=== PATIENT | female | born 1955 | race Caucasian/White ===

== ENCOUNTER 2016-04-17 13:59 | Emergency (ER) | payer OTHER ==
[~2016-04-17 13:59] MED LIST: /DULO30CA OR; /ESOM40CA; /ESOM40CA OR; /QUET10TA OR; /QUET25TA OR; /WARF25TA PO; ABIL10TA; ABIL20TA2; ABIL30TA4 OR; ACET500T37 PO; ACIPHEX OR; ASPI81TA11 PO; ASPIRIN PO; ATARAX OR; ATOM40CA; BUSP10TA2 OR; BUSP30TA; CELE100C OR; CELE40TA OR; CLAR5CHW; CLAR5CHW OR; CLON0.5T OR; CLON0.5T PO; COGE1INJ; COGE1INJ OR; COLA100C2 OR; COUM2.5T11 PO; CVS20TAB PO; CYMB60CA3 PO; CYMBALTA PO; DITR1TAB PO; DULO1CAP2 PO; EFFE150C; EFFE150C OR; EFFE75CA75 OR; FERR325T; GABAPOW41 PO; HALO10TA4; LAMI1TAB8 PO; LAMI25TA; LAMI25TA OR; LAMO10TA PO; NAPR250T2 PO; NEXI40CA PO; NORC5TAB PO; OMEP20TA7 OR; PERC5TAB6 PO; PERC7.5T12 PO; PRIL20CA; QUET1TAB10 PO; QUET1TAB9 PO; QUET30TA OR; RANI150T PO; SENN8.6T10 PO; SERO200T OR; SEROQUEL PO; SIMV20TA2 PO; TIZA2CAP3 PO; TRAM50TA2 OR; TRAM50TA2 PO; TRAZ100T OR; TRAZ100T4 PO; TRAZ150T14 PO; TRAZ300T2 PO; TRAZ50TA; TRAZADONE PO; TUMS750C20 PO; TYLE325C PO; TYLE325T5 PO; VENL75TA2 OR; VENLAFAXINE PO; VITA200038 PO; VITAMIN B 12 PO; ZOCO20TA OR; ZYPR10TA OR; flonase
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
--- NOTE | 2016-04-17 14:58 | EDDOCDS ---
Physician Documentation [facility] Name: Bridget Lemon Age: 60 yrs Sex: Female : 1955 Arrival Date: 04/17/2016 Time: 13:59 Bed TR8 Private MD: Isaias Mosquera Disposition: 04/17/16 14:47 Discharged to Home/Self Care. Impression: Low back pain, Weakness, Malaise and fatigue, Myalgia. - Condition is Stable. - Discharge Instructions: Musculoskeletal Pain, Weakness, Fatigue, Back Pain, Adult, [id number]. - Prescriptions for Medrol (Asa) 4 mg Oral Tablets, Dose Pack - take 1 Pack by ORAL route as directed - follow package instructions; 1 packet. - Medication Reconciliation, Local Pharmacy Hours form. - Follow up: Isaias Mosquera; When: Call to arrange an appointment; Reason: Further diagnostic work-up, Recheck today's complaints, Continuance of care. - Problem is an ongoing problem. - Symptoms are unchanged. Historical: - Allergies: Codeine Sulfate; PENICILLINS; - Home Meds: 1. aspirin 81 mg Oral TbEC once daily (Last dose: 04/17/2016 08:00) 2. clonazepam 0.5 mg Oral tab 1 tab 2 times per day (Last dose: 04/17/2016 08:00) 3. Cymbalta 90mg Oral cpDR once daily (Last dose: 04/16/2016 20:00) 4. Lamictal 150 mg Oral tab once daily (Last dose: 04/17/2016 08:00) 5. meclizine 25 mg Oral tab 1 tab once daily (Last dose: 04/16/2016) 6. Nexium 40 mg oral cpDR 2 times per day (Last dose: 04/17/2016 08:00) 7. Seroquel Oral Nightly (Last dose: 04/16/2016 20:00) 8. trazodone 100 mg oral tab nightly (Last dose: 04/16/2016 20:00) 9. Simvastatin Unknown Oral Unknown once daily (Last dose: 04/17/2016 08:00) - PMHx: Anxiety; Depression; GERD; insomnia; - PSHx: Bilateral knee replacement; Tonsillectomy; Adenoidectomy; Cataract Surgery- Bilateral; Left rotator cuff repair 2016; - Social history: Smoking status: Patient states was never smoker of tobacco. No barriers to communication noted, The patient speaks fluent Kazakh. - Family history: Not pertinent. - : The pt / caregiver states he / she is not on anticoagulants. Home medication list is obtained from the patient. - Exposure Risk Screening:: None identified. Vital Signs: 04/17 14:02 BP 117 / 66; Pulse 95; Resp 18 S; Temp 96.4(O); Pulse Ox 97% on R/A; Weight 63.05 kg / gr2 139 lbs (R); Height 4 ft. 10 in. (147.32 cm) (R); Pain 5/10; 14:02 Body Mass Index 29.05 (63.05 kg, 147.32 cm) gr2 MDM: 14:57 Financial registration complete. lg Signatures: Siddharth Diallo, RN RN Woo Cao Reg Reg lg Wolfenden, Brandon, PA PA btw Hafner, JaneRN RN [facility] ELIZABETH
--- NOTE | 2016-04-19 15:59 | EDDOCDS ---
Physician Documentation [facility] Name: Bridget Lemon Age: 60 yrs Sex: Female : 1955 Arrival Date: 04/17/2016 Time: 13:59 Bed TR8 Private MD: Isaias Mosquera Disposition: 04/17/16 14:47 Discharged to Home/Self Care. Impression: Low back pain, Weakness, Malaise and fatigue, Myalgia. - Condition is Stable. - Discharge Instructions: Musculoskeletal Pain, Weakness, Fatigue, Back Pain, Adult, [id number]. - Prescriptions for Medrol (Asa) 4 mg Oral Tablets, Dose Pack - take 1 Pack by ORAL route as directed - follow package instructions; 1 packet. - Medication Reconciliation, Local Pharmacy Hours form. - Follow up: Isaias Mosquera; When: Call to arrange an appointment; Reason: Further diagnostic work-up, Recheck today's complaints, Continuance of care. - Problem is an ongoing problem. - Symptoms are unchanged. Historical: - Allergies: Codeine Sulfate; PENICILLINS; - Home Meds: 1. aspirin 81 mg Oral TbEC once daily (Last dose: 04/17/2016 08:00) 2. clonazepam 0.5 mg Oral tab 1 tab 2 times per day (Last dose: 04/17/2016 08:00) 3. Cymbalta 90mg Oral cpDR once daily (Last dose: 04/16/2016 20:00) 4. Lamictal 150 mg Oral tab once daily (Last dose: 04/17/2016 08:00) 5. meclizine 25 mg Oral tab 1 tab once daily (Last dose: 04/16/2016) 6. Nexium 40 mg oral cpDR 2 times per day (Last dose: 04/17/2016 08:00) 7. Seroquel Oral Nightly (Last dose: 04/16/2016 20:00) 8. trazodone 100 mg oral tab nightly (Last dose: 04/16/2016 20:00) 9. Simvastatin Unknown Oral Unknown once daily (Last dose: 04/17/2016 08:00) - PMHx: Anxiety; Depression; GERD; insomnia; - PSHx: Bilateral knee replacement; Tonsillectomy; Adenoidectomy; Cataract Surgery- Bilateral; Left rotator cuff repair 2016; - Social history: Smoking status: Patient states was never smoker of tobacco. No barriers to communication noted, The patient speaks fluent Syriac. - Family history: Not pertinent. - : The pt / caregiver states he / she is not on anticoagulants. Home medication list is obtained from the patient. - Exposure Risk Screening:: None identified. Vital Signs: 04/17 14:02 BP 117 / 66; Pulse 95; Resp 18 S; Temp 96.4(O); Pulse Ox 97% on R/A; Weight 63.05 kg / gr2 139 lbs (R); Height 4 ft. 10 in. (147.32 cm) (R); Pain 5/10; 14:02 Body Mass Index 29.05 (63.05 kg, 147.32 cm) gr2 MDM: 14:57 Financial registration complete. : [facility] Payment Agreement was scanned into [employer] and attached to record. lg 04/18 10:50 T-Sheet-- Draft Copy was scanned into [employer] and attached to record. gb Signatures: Siddharth Diallo, RN RN dwSilvia Berman, Reg Reg gb Woo Trinh, Reg Reg lg Abel Ladd PA PA btw Yeimy RichterRN RN [facility] The chart was reviewed and I authenticate all verbal orders and agree with the evaluation and treatment provided.Attachments: 04/17 14: [facility] Payment Agreement 04/18 10:50 T-Sheet-- Draft Copy gb Chart Complete MTDD
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
--- NOTE | 2016-04-19 15:59 | EDDOCDS ---
Physician Documentation [facility] Name: Bridget Lemon Age: 60 yrs Sex: Female : 1955 Arrival Date: 04/17/2016 Time: 13:59 Bed TR8 Private MD: Isaias Mosquera Disposition: 04/17/16 14:47 Discharged to Home/Self Care. Impression: Low back pain, Weakness, Malaise and fatigue, Myalgia. - Condition is Stable. - Discharge Instructions: Musculoskeletal Pain, Weakness, Fatigue, Back Pain, Adult, [id number]. - Prescriptions for Medrol (Asa) 4 mg Oral Tablets, Dose Pack - take 1 Pack by ORAL route as directed - follow package instructions; 1 packet. - Medication Reconciliation, Local Pharmacy Hours form. - Follow up: Isaias Mosquera; When: Call to arrange an appointment; Reason: Further diagnostic work-up, Recheck today's complaints, Continuance of care. - Problem is an ongoing problem. - Symptoms are unchanged. Historical: - Allergies: Codeine Sulfate; PENICILLINS; - Home Meds: 1. aspirin 81 mg Oral TbEC once daily (Last dose: 04/17/2016 08:00) 2. clonazepam 0.5 mg Oral tab 1 tab 2 times per day (Last dose: 04/17/2016 08:00) 3. Cymbalta 90mg Oral cpDR once daily (Last dose: 04/16/2016 20:00) 4. Lamictal 150 mg Oral tab once daily (Last dose: 04/17/2016 08:00) 5. meclizine 25 mg Oral tab 1 tab once daily (Last dose: 04/16/2016) 6. Nexium 40 mg oral cpDR 2 times per day (Last dose: 04/17/2016 08:00) 7. Seroquel Oral Nightly (Last dose: 04/16/2016 20:00) 8. trazodone 100 mg oral tab nightly (Last dose: 04/16/2016 20:00) 9. Simvastatin Unknown Oral Unknown once daily (Last dose: 04/17/2016 08:00) - PMHx: Anxiety; Depression; GERD; insomnia; - PSHx: Bilateral knee replacement; Tonsillectomy; Adenoidectomy; Cataract Surgery- Bilateral; Left rotator cuff repair 2016; - Social history: Smoking status: Patient states was never smoker of tobacco. No barriers to communication noted, The patient speaks fluent Yoruba. - Family history: Not pertinent. - : The pt / caregiver states he / she is not on anticoagulants. Home medication list is obtained from the patient. - Exposure Risk Screening:: None identified. Vital Signs: 04/17 14:02 BP 117 / 66; Pulse 95; Resp 18 S; Temp 96.4(O); Pulse Ox 97% on R/A; Weight 63.05 kg / gr2 139 lbs (R); Height 4 ft. 10 in. (147.32 cm) (R); Pain 5/10; 14:02 Body Mass Index 29.05 (63.05 kg, 147.32 cm) gr2 MDM: 14:57 Financial registration complete. [facility] Payment Agreement was scanned into [employer] and attached to record. lg 04/18 10:50 T-Sheet-- Draft Copy was scanned into [employer] and attached to record. gb Signatures: Siddharth Diallo, RN RN dwSilvia Berman, Reg Reg gb Woo Trinh, Reg Reg lg Abel Ladd PA PA btw Yeimy RichterRN RN [facility] The chart was reviewed and I authenticate all verbal orders and agree with the evaluation and treatment provided.Attachments: 04/17 14: [facility] Payment Agreement 04/18 10:50 T-Sheet-- Draft Copy gb Chart Complete MTDD
== END 2016-04-17 14:58 | disposition home or self-care (01) ==
LOC: M ED 13:59
DX: R53.1 Weakness (principal); R53.83 Other fatigue; M54.5 Low back pain; G89.29 Other chronic pain; F41.9 Anxiety disorder, unspecified; K21.9 Gastro-esophageal reflux disease without esophagitis; G47.00 Insomnia, unspecified; Z79.899 Other long term (current) drug therapy; Z79.82 Long term (current) use of aspirin; Z88.0 Allergy status to penicillin; Z88.5 Allergy status to narcotic agent

== ENCOUNTER → 2016-04-18 | Outpatient (REF) | payer OTHER, MEDICAID ==
[2016-04-18 15:47] LABS: BASO % 0.9 % (0.0-1.0); EOS # 0.1 K/mm3 (0.0-0.50); EOS % 2.9 % (0.0-3.0); LARGE UNSTAINED CELL # 0.1 K/mm3 (0.0-0.4); LARGE UNSTAINED CELL % 3.1 % (0.0-4.0); LYMPH # 1.6 K/mm3 (1.5-4.5); LYMPH % 36.2 % (24.0-44.0); MEAN CORPUSCULAR HEMOGLOBIN 28.3 pg (27.0-33.0); MEAN CORPUSCULAR HGB CONC 30.6 g/dl (32.0-36.5); MEAN CORPUSCULAR VOLUME 92.4 fl (80.0-96.0); MONO # 0.3 K/mm3 (0.0-0.8); MONO % 7.2 % (0.0-5.0); NEUTROPHILS # 2.2 K/mm3 (1.8-7.7); NEUTROPHILS % 49.7 % (36.0-66.0); PLATELET COUNT, AUTOMATED 306 k/mm3 (150-450); RED CELL DISTRIBUTION WIDTH 14.9 % (11.5-14.5); WHITE BLOOD COUNT 4.4 K/mm3 (4.0-10.0)
[2016-04-18 16:01] LABS: ANION GAP 8 MEQ/L (8-16); BLOOD UREA NITROGEN 16 MG/DL (7-18); CALCIUM LEVEL 8.7 MG/DL (8.8-10.2); CARBON DIOXIDE LEVEL 32 MEQ/L (21-32); CHLORIDE LEVEL 102 MEQ/L (98-107); CREATININE FOR GFR 0.82 MG/DL (0.55-1.02); GLOMERULAR FILTRATION RATE > 60.0 (>45); GLUCOSE, FASTING 104 MG/DL (80-110); POTASSIUM SERUM 4.2 MEQ/L (3.5-5.1); SODIUM LEVEL 142 MEQ/L (136-145)
== END ==
LOC: M LABDRAW1 15:17
PROVIDERS: ATTEND Physician Assistant Medical
DX: J32.9 Chronic sinusitis, unspecified (principal)
CPT/HCPCS: 36415; 80048; 85025; G0463

== ENCOUNTER → 2016-04-25 | Outpatient (CLI) | payer MEDICAID, OTHER ==
--- NOTE | 2016-04-25 16:18 | REP ---
MRI BRAIN WITHOUT AND WITH CONTRAST: 04/25/2016. Clinical history: Dizziness, and increased falls. Unsteady gait. Technique: Axial T1, T2, FLAIR, gradient echo, diffusion-weighted images and ADC mapping sequences with sagittal T1. After infusion of 14 mL of ProHance, coronal and axial T1 sequences were then provided. Comparison CT: 01/02/2016. Findings: Ventricles are midline with lateral ventricles dilated, symmetric and without displacement. They are proportionate to the diffuse cerebral atrophy, which is moderate and greater than expected for age. Atrophy is greatest in the temporal and frontal lobes. It is diffuse. Periventricular, deep central and subcortical white matter hyperintense T2 and FLAIR foci are seen mostly punctate, but some more ill-defined and confluent areas are noted as well. The basal ganglia appear symmetric. Other than atrophy, the cortical stripe was symmetric and preserved. There is no vascular territory infarct, intraparenchymal hemorrhage, mass or mass effect. No edema. No extra-axial fluid collections. The brainstem shows some T2 hyperintense foci in the cerebral peduncles on both sides. Third ventricle is mildly dilated as on previous CT. Transverse diameter of 9.2 mm is close to the measurement on the CT in December 8.7 mm at the same location. VII/VIII cranial nerve complexes and mastoids intact. There is slight deviation of nasal septum towards the right. Visualized sinuses show some ethmoid sinus mucosal thickening. Orbits and contents symmetric and normal. The corpus callosum, optic chiasm and pituitary were grossly intact. No cerebellar tonsillar ectopia is noted. Diffusion weighted images and ADC mapping sequences show no evidence of acute ischemia. After contrast administration: There is no visible vascular malformation or lesion, abnormal meningeal enhancement, gyriform enhancement nor enhancing mass on axial and coronal T1 images. Impression: 1. Moderately severe diffuse atrophy, similar to that seen in the previous CT scans of the brain, greater than expected for age, but stable and proportionate degree of ventriculomegaly and atrophy. 2. Scattered chronic small vessel white matter ischemic changes noted. 3. No enhancing mass, vascular lesion, abnormal meningeal enhancement or gyriform enhancement. 4. Minor ethmoid sinus mucosal thickening but the mastoids, skull base and orbits were unremarkable. 5. No acute infarct, hemorrhage, mass or mass effect. Signed by Jaskaran Curry MD 04/25/2016 04:48 P
== END ==
LOC: M RAD 11:56
PROVIDERS: ATTEND Physician Assistant Medical
DX: R42 Dizziness and giddiness (principal); W19.XXXD Unspecified fall, subsequent encounter; Y92.9 Unspecified place or not applicable; Y93.9 Activity, unspecified; Y99.9 Unspecified external cause status
CPT/HCPCS: 70553; A9576

== ENCOUNTER → 2016-05-02 | Outpatient (CLI) | payer OTHER ==
[2016-05-02 07:35] LABS: MEAN CORPUSCULAR HEMOGLOBIN 27.4 pg (27.0-33.0); MEAN CORPUSCULAR HGB CONC 30.3 g/dl (32.0-36.5); MEAN CORPUSCULAR VOLUME 90.5 fl (80.0-96.0); RED CELL DISTRIBUTION WIDTH 14.7 % (11.5-14.5); WHITE BLOOD COUNT 4.9 K/mm3 (4.0-10.0)
[2016-05-02 08:22] LABS: ALBUMIN 3.2 GM/DL (3.2-5.2); ALBUMIN/GLOBULIN RATIO 0.94 (1.00-1.93); ALKALINE PHOSPHATASE 153 U/L (45-117); ALT/SGPT 13 U/L (12-78); ANION GAP 8 MEQ/L (8-16); AST/SGOT 17 U/L (15-37); BILIRUBIN,TOTAL 0.2 MG/DL (0.2-1.0); BLOOD UREA NITROGEN 22 MG/DL (7-18); CALCIUM LEVEL 8.7 MG/DL (8.8-10.2); CARBON DIOXIDE LEVEL 29 MEQ/L (21-32); CHLORIDE LEVEL 107 MEQ/L (98-107); CHOLESTEROL LEVEL 207 MG/DL (<200); CREATININE FOR GFR 0.72 MG/DL (0.55-1.02); GLOMERULAR FILTRATION RATE > 60.0 (>45); GLUCOSE, FASTING 96 MG/DL (80-110); SODIUM LEVEL 144 MEQ/L (136-145); TOTAL PROTEIN 6.6 GM/DL (6.4-8.2); TRIGLYCERIDES LEVEL 103 MG/DL (<150)
== END ==
LOC: M LAB 06:47
PROVIDERS: ATTEND Nurse Practitioner Adult Health
DX: Z00.00 Encounter for general adult medical examination without abnormal findings (principal); E78.00 Pure hypercholesterolemia, unspecified; K21.9 Gastro-esophageal reflux disease without esophagitis; M19.90 Unspecified osteoarthritis, unspecified site

== ENCOUNTER 2016-05-22 13:17 | Emergency (ER) | payer MEDICAID, OTHER ==
[~2016-05-22] VITALS: Ht 147.3 cm; Wt 68.0 kg
[2016-05-22] MEDS ORDERED: TRAM1CAP15 PO (13:32)
[2016-05-22] MEDS ORDERED: RANI1TAB38 PO (13:32)
[2016-05-22] MEDS ORDERED: SUCR1TA PO (13:32)
[2016-05-22] MEDS ORDERED: TIZA4CAP3 PO (13:32)
[2016-05-22] MEDS ORDERED: ONDANSETRON 4 MG ORAL DISINTEGRATING TAB (S0181) PO ONE (15:30)
[2016-05-22] MEDS ORDERED: ACETAMINOPH W/CODEINE #3 TAB UD PO ONE (15:30)
[2016-05-22] MEDS ORDERED: ACET30TAB PO (16:10)
[2016-05-22] MEDS ORDERED: ZOFR4TAB3 PO (16:12)
--- NOTE | 2016-05-22 16:13 | REP ---
CT HEAD WITHOUT CONTRAST: HISTORY: Trauma. COMPARISON: 01/02/2016 Areas of decreased attenuation are present in the periventricular white matter. This represents small vessel ischemic disease. There is no intraparenchymal hemorrhage, mass or midline shift. The ventricular system and cortical sulci are dilated consistent with moderate volume loss. There is no extracerebral collection. There is no fracture. The visualized sinuses are clear. IMPRESSION: 1. Small vessel ischemic disease. 2. Moderate volume loss. Signed by Jimmie Kendall MD 05/22/2016 04:16 P
--- NOTE | 2016-05-22 16:15 | REP ---
CT CERVICAL SPINE WITHOUT CONTRAST: HISTORY: Trauma. There is no acute fracture or subluxation. There is no disc bulge or herniation. The spinal canal and the neural foramina are patent. The intervertebral discs are normal in height. IMPRESSION: There is no acute fracture or subluxation. Signed by Jimmie Kendall MD 05/22/2016 04:16 P
[2016-05-22 16:20] VITALS: BP 119/72
--- NOTE | 2016-05-22 16:24 | REP ---
LEFT SHOULDER, THREE VIEWS: HISTORY: Trauma. COMPARISON: 02/14/2014 There is no acute fracture or dislocation. There is irregularity of the superolateral aspect of the humeral head. There is narrowing of the acromioclavicular joint. IMPRESSION: There is no acute fracture or dislocation. Signed by Jimmie Kendall MD 05/22/2016 04:27 P
== END 2016-05-22 16:32 | disposition home or self-care (01) ==
LOC: M ED 15:41
DX: S09.90XA Unspecified injury of head, initial encounter (principal); S16.1XXA Strain of muscle, fascia and tendon at neck level, initial encounter; S40.012A Contusion of left shoulder, initial encounter; W19.XXXA Unspecified fall, initial encounter; Y92.090 Kitchen in other non-institutional residence as the place of occurrence of the external cause; Y93.E9 Activity, other interior property and clothing maintenance; Y99.8 Other external cause status; M54.9 Dorsalgia, unspecified; K21.9 Gastro-esophageal reflux disease without esophagitis; E78.9 Disorder of lipoprotein metabolism, unspecified; F32.9 Major depressive disorder, single episode, unspecified; G43.909 Migraine, unspecified, not intractable, without status migrainosus; Z86.73 Personal history of transient ischemic attack (TIA), and cerebral infarction without residual deficits; Z88.5 Allergy status to narcotic agent; Z88.8 Allergy status to other drugs, medicaments and biological substances; Z88.0 Allergy status to penicillin; Z79.899 Other long term (current) drug therapy

== ENCOUNTER 2016-05-31 10:50 | Emergency (ER) | payer OTHER ==
[~2016-05-31] VITALS: Ht 147.3 cm; Wt 67.6 kg
[~2016-05-31 10:50] MED LIST changes: +ACET30TAB PO; +RANI1TAB38 PO; +SUCR1TA PO; +TIZA4CAP3 PO; +TRAM1CAP15 PO; +ZOFR4TAB3 PO
[2016-05-31] MEDS ORDERED: MONT10TA2 PO (11:13)
[2016-05-31] MEDS ORDERED: MECL-68 PO (11:14)
[2016-05-31] MEDS ORDERED: ACETAMINOPHEN 325 MG TAB PO ONE (12:30)
[2016-05-31] MEDS ORDERED: NS 500 ML IV ONE (12:30)
[2016-05-31] MEDS ORDERED: ALBUTEROL SULFATE 2.5 MG/0.5 ML INH NEB SOLN NEB ONE (12:30)
[2016-05-31] MEDS ORDERED: ONDANSETRON 4MG/2ML VIAL (J2405) IV ONE (12:45)
[2016-05-31 13:28] LABS: CALCIUM OXALATE CRYSTALS SMALL
[2016-05-31 13:39] LABS: MEAN CORPUSCULAR HEMOGLOBIN 27.8 pg (27.0-33.0); MEAN CORPUSCULAR HGB CONC 31.2 g/dl (32.0-36.5); MEAN CORPUSCULAR VOLUME 88.9 fl (80.0-96.0); RED CELL DISTRIBUTION WIDTH 14.4 % (11.5-14.5); WHITE BLOOD COUNT 11.4 K/mm3 (4.0-10.0)
[2016-05-31 13:55] LABS: ALBUMIN 3.3 GM/DL (3.2-5.2); ALBUMIN/GLOBULIN RATIO 0.79 (1.00-1.93); ALKALINE PHOSPHATASE 157 U/L (45-117); ALT/SGPT 15 U/L (12-78); ANION GAP 10 MEQ/L (8-16); AST/SGOT 19 U/L (15-37); BILIRUBIN,TOTAL 0.2 MG/DL (0.2-1.0); BLOOD UREA NITROGEN 13 MG/DL (7-18); CALCIUM LEVEL 8.3 MG/DL (8.8-10.2); CARBON DIOXIDE LEVEL 28 MEQ/L (21-32); CHLORIDE LEVEL 101 MEQ/L (98-107); CREATININE FOR GFR 0.74 MG/DL (0.55-1.02); GLOMERULAR FILTRATION RATE > 60.0 (>45); GLUCOSE, FASTING 97 MG/DL (80-110); POTASSIUM SERUM 3.8 MEQ/L (3.5-5.1); SODIUM LEVEL 139 MEQ/L (136-145); TOTAL PROTEIN 7.5 GM/DL (6.4-8.2)
--- NOTE | 2016-05-31 13:55 | REP ---
REASON: Chest pain. COMPARISON: Frontal view obtained as part of a rib series 01/05/2016. There is no change from the prior exam. There are chronic changes with basilar fibrosis and chronic calcified lymph nodes. There is cardiomegaly status quo. No definite acute patchy parenchymal opacities or pleural effusions have developed. Chronic changes are seen involving the imaged spine status quo. There is unchanged thoracic aortic tortuosity. IMPRESSION: Stable appearing chronic changes without plain radiographic evidence of acute cardiopulmonary disease. Signed by Adolfo Paula DO 05/31/2016 04:47 P
[2016-05-31 15:47] VITALS: BP 118/63
[2016-05-31] MEDS ORDERED: AZIT250T3 PO (15:48)
[2016-05-31] MEDS ORDERED: ALBU17IN INH (15:50)
[2016-05-31] MEDS ORDERED: AZITHROMYCIN 250 MG TAB PO ONE (16:00)
--- NOTE | 2016-05-31 18:02 | ECGEPIP ---
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
== END 2016-05-31 16:05 | disposition home or self-care (01) ==
LOC: M ED 12:35
DX: J02.9 Acute pharyngitis, unspecified (principal); J20.9 Acute bronchitis, unspecified; G43.909 Migraine, unspecified, not intractable, without status migrainosus; K21.9 Gastro-esophageal reflux disease without esophagitis; K44.9 Diaphragmatic hernia without obstruction or gangrene; M19.90 Unspecified osteoarthritis, unspecified site; F41.9 Anxiety disorder, unspecified; F32.9 Major depressive disorder, single episode, unspecified; F90.9 Attention-deficit hyperactivity disorder, unspecified type; Z87.440 Personal history of urinary (tract) infections; Z87.09 Personal history of other diseases of the respiratory system; Z79.899 Other long term (current) drug therapy; Z79.891 Long term (current) use of opiate analgesic; Z88.0 Allergy status to penicillin; Z88.5 Allergy status to narcotic agent; Z88.6 Allergy status to analgesic agent
CPT/HCPCS: 71020; 80053; 81001; 82550; 82553; 84484; 85027; 87086; 87804; 87880; 93005; 96361; 96374; 99283; J2405

== ENCOUNTER 2016-07-02 13:28 | Emergency (ER) | payer MEDICAID, OTHER ==
[~2016-07-02] VITALS: Ht 147.3 cm; Wt 69.4 kg
[~2016-07-02 13:28] MED LIST changes: +ALBU17IN INH; +AZIT250T3 PO; +MECL-68 PO; +MONT10TA2 PO; +NORC1TAB4 PO; -NORC5TAB PO
[2016-07-02 13:29] VITALS: BP 120/67
[2016-07-02 15:57] VITALS: O2SAT 96
[2016-07-02] MEDS ORDERED: LIDO5DIS36 TD (16:05)
== END 2016-07-02 16:30 | disposition home or self-care (01) ==
LOC: M ED 15:09
DX: G89.29 Other chronic pain (principal); M54.9 Dorsalgia, unspecified; K21.9 Gastro-esophageal reflux disease without esophagitis; M19.90 Unspecified osteoarthritis, unspecified site; Z79.899 Other long term (current) drug therapy; Z88.5 Allergy status to narcotic agent; Z88.6 Allergy status to analgesic agent; Z88.0 Allergy status to penicillin

== ENCOUNTER → 2016-07-03 | Outpatient (CLI) | payer MEDICAID, OTHER ==
[~2016-07-03] MED LIST changes: +LIDO5DIS36 TD
--- NOTE | 2016-07-03 09:47 | REP ---
MRI LUMBAR SPINE WITHOUT CONTRAST: HISTORY: Spondylosis with radiculopathy. Question disc herniation. Comparison MRI study lumbar spine is from December 19, 2014. TECHNIQUE: Sagittal and axial T1 and T2-weighted scans are acquired in the usual fashion with and without fat saturation. Sequences include spin echo, turbo spin-echo, and STIR imaging sequences. MRI FINDINGS: Lumbar vertebral body heights are preserved and alignment is normal. There is disc space narrowing at L4-5 and to a lesser extent at L3-4 consistent with early degenerative disc disease changes at these levels. The L1-2 disc shows mild desiccation. These findings are essentially unchanged from 2015 prior study. Conus medullaris remains normal in position and appearance at T12-L1. Normal caliber aorta is seen. No extra vertebral abnormality is appreciated. Axial and sagittal images at L4-5 show mild to moderate diffuse disc bulging effacing the ventral subarachnoid space. The foraminal segment of the disc margin are bulging as well producing minimal neural foraminal narrowing. Mild central canal stenosis is noted. The findings are unchanged at L4-5. There is some facet and ligamentum flavum hypertrophy also noted. At L3-4, there is minimal facet hypertrophy and minimal disc bulging. At L5-S1, there is mild facet hypertrophy. No other significant finding. The L2-3 level is unremarkable. At L1-2, there is no significant abnormality. IMPRESSION: Mild degenerative disc changes. There is diffuse moderate bulging and mild central canal stenosis at L4-5 with mild bilateral neural foraminal narrowing. These findings are unchanged from the December 19, 2014 prior exam. Signed by Mohinder Lee MD 07/03/2016 01:10 P
== END ==
LOC: M RAD 07:04
PROVIDERS: ATTEND Physician Assistant
DX: M51.36 Other intervertebral disc degeneration, lumbar region (principal); M47.26 Other spondylosis with radiculopathy, lumbar region

== ENCOUNTER → 2016-08-13 | Outpatient (CLI) | payer OTHER ==
--- NOTE | 2016-08-13 18:29 | REP ---
KUB: REASON: Abdominal bloating. FINDINGS: KUB shows the intestinal gas pattern to be nonspecific. The organ silhouettes insofar as delineated are unremarkable. There is no evidence of free intraperitoneal air. IMPRESSION: Nonspecific. Signed by Adolfo Paula DO 08/13/2016 06:53 P
== END ==
LOC: M WUC 17:08
PROVIDERS: ATTEND Nurse Practitioner Adult Health
DX: R14.0 Abdominal distension (gaseous) (principal)
CPT/HCPCS: 74000; G0463

== ENCOUNTER → 2016-08-20 | Outpatient (RCR) | payer MEDICAID, OTHER | LOC: M PT 07-30 14:03 | PROVIDERS: ATTEND Physician Assistant | DX: Z51.89 Encounter for other specified aftercare (principal); M54.5 Low back pain; R29.6 Repeated falls | CPT/HCPCS: 97110; 97162; G8978; G8979 ==

== ENCOUNTER → 2016-09-19 | Outpatient (RCR) | payer OTHER, MEDICAID ==
[~2016-09-19] MED LIST changes: +ACET-683 PO; -ACET500T37 PO; +ASPI-101 PO; -ASPI81TA11 PO; +ASPI81TA24 PO; +AZIT-12 PO; -AZIT250T3 PO; -COUM2.5T11 PO; +COUM2.5T17 PO; +DULO1CAP3 PO; +LEVO750T13 PO; -LIDO5DIS36 TD; +LIDO5DIS41 TD; -NAPR250T2 PO; +NAPR250T4 PO; +NEXI20CA PO; +PERC5TAB12 PO; -PERC5TAB6 PO; +QUET1TAB8 PO; +SENN1TAB10 PO; -SENN8.6T10 PO; +SERO1TAB2 PO; +SUCR1TAB56 PO; +TRAZ-136 PO; -TRAZ100T4 PO; -TRAZ150T14 PO; +TRAZ1TAB14 PO
== END ==
LOC: M PT 08-26 13:53
PROVIDERS: ATTEND Physician Assistant
DX: Z51.89 Encounter for other specified aftercare (principal); M54.5 Low back pain; R29.6 Repeated falls
CPT/HCPCS: 97110; G8978; G8979

== ENCOUNTER 2016-10-01 14:30 | Outpatient (RCR) | payer OTHER ==
[~2016-10-01 14:30] MED LIST changes: -ASPI81TA24 PO; -DULO1CAP3 PO; -LEVO750T13 PO; -NEXI20CA PO; -QUET1TAB8 PO; -SERO1TAB2 PO; -SUCR1TAB56 PO
[2017-01-26] MEDS ORDERED: NORC1TAB4 PO (15:39)
== END 2016-10-20 ==
LOC: M PT 14:30
PROVIDERS: ATTEND Physician Assistant
DX: Z51.89 Encounter for other specified aftercare (principal); M51.36 Other intervertebral disc degeneration, lumbar region; M60.89 Other myositis, multiple sites; M54.2 Cervicalgia; M47.892 Other spondylosis, cervical region; M54.5 Low back pain; R29.6 Repeated falls
CPT/HCPCS: 97110; G8979; G8980

== ENCOUNTER 2016-10-27 09:36 | Observation (INO) | payer OTHER ==
[~2016-10-27] VITALS: Ht 147.3 cm; Wt 69.8 kg
[~2016-10-27 09:36] MED LIST changes: +NICOTINE 21MG/24HR 1 EA TRANSDERMAL TD SCH
[2016-10-27] MEDS ORDERED: NEXI20CA PO ×2 (09:58→12:14)
[2016-10-27] MEDS ORDERED: methylPREDNISolone INJ 125 MG/2 ML VIAL (J2930) IV ONE (10:30)
[2016-10-27 10:36] LABS: BASO % 0.7 % (0.0-1.0); EOS # 0.2 K/mm3 (0.0-0.50); EOS % 2.2 % (0.0-3.0); LARGE UNSTAINED CELL # 0.1 K/mm3 (0.0-0.4); LARGE UNSTAINED CELL % 1.5 % (0.0-4.0); LYMPH # 0.7 K/mm3 (1.5-4.5); MEAN CORPUSCULAR HEMOGLOBIN 26.3 pg (27.0-33.0); MEAN CORPUSCULAR HGB CONC 30.8 g/dl (32.0-36.5); MEAN CORPUSCULAR VOLUME 85.6 fl (80.0-96.0); MONO # 0.4 K/mm3 (0.0-0.8); MONO % 5.3 % (0.0-5.0); NEUTROPHILS # 6.1 K/mm3 (1.8-7.7); NEUTROPHILS % 81.4 % (36.0-66.0); PLATELET COUNT, AUTOMATED 332 k/mm3 (150-450); WHITE BLOOD COUNT 7.5 K/mm3 (4.0-10.0)
[2016-10-27 10:46] LABS: ANION GAP 10 MEQ/L (8-16); BLOOD UREA NITROGEN 9 MG/DL (7-18); CALCIUM LEVEL 8.9 MG/DL (8.8-10.2); CARBON DIOXIDE LEVEL 25 MEQ/L (21-32); CHLORIDE LEVEL 103 MEQ/L (98-107); CREATININE FOR GFR 0.77 MG/DL (0.55-1.02); GLOMERULAR FILTRATION RATE > 60.0 (>45); GLUCOSE, FASTING 177 MG/DL (80-110); POTASSIUM SERUM 3.4 MEQ/L (3.5-5.1); SODIUM LEVEL 138 MEQ/L (136-145)
[2016-10-27] MEDS: IPRATROPIUM 0.5MG/ALBUTEROL 2.5MG INH SOL UD 3ML (DUONEB)(J7620) NEB SCH ×5 (10:51→20:35)
[2016-10-27 10:55] LABS: ABG BASE EXCESS 2.5 (-2.0-2.0); ABG HCO3 27.1 MEQ/L (22.0-26.0); ABG PARTIAL PRESSURE CO2 42.3 mmHg (35.0-45.0); ABG PARTIAL PRESSURE O2 66.2 mmHg (75.0-100.0); ABG STANDARD HCO3 26.6 MEQ/L (22.0-26.0); ABG TOTAL CO2 28.4 MEQ/L (23.0-31.0); ABG pH (ARTERIAL) 7.425 UNITS (7.350-7.450)
--- NOTE | 2016-10-27 11:06 | REP ---
PA and lateral chest: Comparison is 02/09/2017. There is a left t lower lobe infiltrate as an interval change. No pleural effusions are identified. Cardiac size is normal. The jay, mediastinum, and bony thorax are unremarkable. Impression: Left lower lobe infiltrate. Signed by Siddharth Hodges MD 10/27/2016 10:58 A
[2016-10-27] MEDS ORDERED: LevoFLOXacin IV 750 MG in APPROPRIATE DILUENT 1 EA IV ONE (11:30)
[2016-10-27] MEDS ORDERED: ALBU17IN INH (12:04)
[2016-10-27] MEDS ORDERED: ASPI81TA24 PO (12:14)
[2016-10-27] MEDS ORDERED: TRAM50TA2 PO (12:14)
[2016-10-27] MEDS ORDERED: TIZA2CAP3 PO (12:14)
[2016-10-27] MEDS ORDERED: DULO1CAP3 PO (12:14)
[2016-10-27] MEDS ORDERED: MONT10TA2 PO (12:14)
[2016-10-27] MEDS ORDERED: SIMV20TA2 PO (12:14)
[2016-10-27] MEDS ORDERED: SERO1TAB2 PO (12:14)
[2016-10-27] MEDS ORDERED: MECL-68 PO (12:14)
[2016-10-27] MEDS ORDERED: LAMI1TAB8 PO (12:14)
[2016-10-27] MEDS ORDERED: TRAZ-136 PO (12:14)
[2016-10-27] MEDS ORDERED: SUCR1TAB56 PO (12:14)
[2016-10-27] MEDS ORDERED: ZOFR4TAB3 PO (12:14)
[2016-10-27] MEDS ORDERED: QUET1TAB8 PO (12:14)
[2016-10-27] MEDS ORDERED: CLON0.5T PO ×2 (12:14)
[2016-10-27] MEDS ORDERED: DULO1CAP2 PO (12:14)
[2016-10-27] MEDS ORDERED: RANI150T PO (12:14)
[2016-10-27] MEDS ORDERED: IPRATROPIUM 0.5MG/ALBUTEROL 2.5MG INH SOL UD 3ML (DUONEB)(J7620) NEB PRN (12:30)
[2016-10-27] MEDS ORDERED: traMADol 50 MG TAB PO PRN (12:45)
[2016-10-27] MEDS ORDERED: clonazePAM 0.5 MG TAB PO PRN (12:45)
[2016-10-27] MEDS ORDERED: MECLIZINE 25 MG TABLET PO PRN (12:45)
[2016-10-27] MEDS ORDERED: POTASSIUM CHLORIDE 10 MEQ SR TABLET PO ONE (13:15)
[2016-10-27] MEDS ORDERED: MAGNESIUM OXIDE 400 MG TAB (MAG-OX) PO ONE (13:15)
[2016-10-27 13:29] LABS: MAGNESIUM LEVEL 2.1 MG/DL (1.8-2.4)
[2016-10-27] MEDS ORDERED: SENOKOT S TAB PO PRN (13:30)
[2016-10-27] MEDS ORDERED: MIRALAX *UNIT DOSE* 17GM PACKET PO PRN (13:30)
[2016-10-27] MEDS ORDERED: ACETAMINOPHEN TAB 650MG DOSE (2X325MG) PO PRN (13:30)
[2016-10-27 14:04] LABS: ALBUMIN 2.8 GM/DL (3.2-5.2); ALBUMIN/GLOBULIN RATIO 0.62 (1.00-1.93); ALKALINE PHOSPHATASE 373 U/L (45-117); ALT/SGPT 22 U/L (12-78); AST/SGOT 43 U/L (15-37); BILIRUBIN,DIRECT 0.2 MG/DL (0.0-0.2); BILIRUBIN,TOTAL 0.4 MG/DL (0.2-1.0); TOTAL PROTEIN 7.3 GM/DL (6.4-8.2)
--- NOTE | 2016-10-27 14:18 | HPE ---
DATE OF ADMISSION: 10/27/2016 61-year-old female complaining of cough, shortness of breath for the past 4 days and fever. HISTORY OF PRESENT ILLNESS: This is a pleasant 61-year-old female with a significant past medical history of schizoaffective disorder, hyperlipidemia, gastroesophageal reflux disease (GERD), who presented complaining of cough, shortness of breath for the past 4 days, along with fever. The patient denies any oxygen use at home. Denies any continuous positive airway pressure (CPAP) or bilevel positive airway pressure (BIPAP) use. The patient denies any phlegm production, but does feel congested. The patient denies any sick contacts or travel history. The patient does not smoke but her does and therefore has been exposed to secondhand smoke and utilizes inhalers and montelukast. Denies any diarrhea or dysuria, but feels somewhat constipated, that seems to have resolved, but would prefer to have some medication with movement of her bowel. The patient was evaluated in the emergency room and noted to have a fever of 101.2. Chest x-ray showed left lower lobe infiltrate. Therefore being admitted for pneumonia treatment, along with chronic obstructive pulmonary disease (COPD) therapy. REVIEW OF SYSTEMS: Ten-point review of systems is negative other than those described in the history of present illness. The patient is resting comfortably on oxygen therapy in the emergency room. As the patient was initially saturating 82% on room air, but improved with 2 liters nasal cannula. PAST MEDICAL HISTORY: Significant for: 1. Schizoaffective disorder. 2. Hyperlipidemia. 3. Gastroesophageal reflux disease (GERD). 4. Secondhand smoke exposure. 5. Sinus problems as well. SURGICAL HISTORY: Includes right shoulder surgery of the rotator cuff, knee replacement, cataract surgery. ALLERGIES: PENICILLIN causes a rash, IBUPROFEN, CODEINE. HOME MEDICATIONS: As follows - albuterol two puffs every 4 hours as needed for shortness of breath - aspirin 81 mg once daily - clonazepam 0.5 mg by mouth daily - clonazepam 0.5 mg at night as needed for anxiety - duloxetine 30 mg daily and duloxetine 60 mg by mouth daily, combination the patient will be on duloxetine 90 mg total daily - Nexium 20 mg by mouth twice a day - Lamictal 150 mg by mouth daily - meclizine 25 mg by mouth every 8 hours as needed - montelukast 10 mg by mouth at night - Zofran 4 mg as needed for nausea - Seroquel 300 mg by mouth at night - Seroquel 200 mg by mouth at night for a combination of 500 mg total daily - ranitidine 150 mg one tablet by mouth at night - simvastatin 20 mg by mouth at night - sucralfate 1 gram by mouth at night - tizanidine 2 mg by mouth three times a day as needed - Tramadol 50 mg by mouth every 4 hours as needed - trazodone 200 mg by mouth at night SOCIAL HISTORY: The patient denies smoking, drinking, or drug abuse. The patient is exposed to cigarette secondhand smoke from the . I did advise the to stop smoking, smoking cessation was given to the . FAMILY MEDICAL HISTORY: Significant for heart disease, diabetes, and cancer. PHYSICAL EXAMINATION: VITAL SIGNS: Initially temperature 101.2, no repeat temperature at this time. Heart rate of 85, respiratory rate of 18, blood pressure is 114/59, saturating 90% on room air, but as per emergency room physician initially it was 82% on room air. Currently, the patient is on 4 liters nasal cannula and saturating 94%. Heart rate of 104. No repeat temperature at this time, but we will ask for a repeat. HEENT: Normocephalic. No trauma. Inspection of the eyes, nose and throat normal. Pupils equal, round, and reactive to light and accommodation. Mucosa is moist. Neck is supple with no tracheal deviation. CARDIAC: S1, S2. Regular rate and rhythm . Pulses present. LUNGS: Equal entry. Did not hear any wheezes, rales or rhonchi. I did hear fine crackle on the left base. ABDOMEN: Soft, nontender. Bowel sounds present. EXTREMITIES: Lower extremities with no significant pitting edema. Capillary refill present in all four extremities. Skin is intact, warm to touch, afebrile. The patient is currently awake, alert, oriented times three. Cranial nerves grossly intact. Motor and sensory is intact. Normal mood and affect for current situation. at the bedside. DIAGNOSTIC STUDIES: The patient had WBC normal, platelet count normal, hemoglobin and hematocrit is 11.0 and 35.7, respectively. Basic metabolic profile is within normal except potassium 3.4 and glucose 177. ABG showed a pH of 7.425, PCO2 of 42.3, O22 of 66.2, bicarbonate 27.1, saturating 93. Blood cultures are pending. Chest x-ray as per radiology showed left lower lobe infiltrate. ASSESSMENT AND PLAN: This is a 61-year-old pleasant female with a significant past medical history of schizoaffective disorder, gastroesophageal reflux disease (GERD), hyperlipidemia, utilizing inhalers, secondhand smoke exposure, I suspect underlying chronic obstructive pulmonary disease (COPD), as the patient is utilizing inhalers, montelukast, who presented complaining of shortness of breath, cough, for the past 4 days with hypoxemia. 1. Left lower lobe infiltrate pneumonia with comorbidities of COPD. Patient to be given respiratory treatment and oxygen therapy as needed, antibiotic with Levaquin, IV fluid and cultures are pending at this time. Obtain CT of the chest and pulmonary consultation as needed. As the patient is on multiple anti psychiatric medications and is receiving Levaquin due to her allergy to penicillin, we will place her on telemetry to monitor for any QT prolongation. Smoking cessation was strongly advised to her . The patient is not actively wheezing, therefore, we will not utilize steroids at this time, but initiate as needed. 2. Hyperlipidemia. Continue home regimen of statin. 3. Hypokalemia. We will replace and monitor magnesium level. 4. Gastroesophageal reflux disease (GERD). Resume home medication of ranitidine, Nexium and Carafate. 5. Schizoaffective disorder. Continue to resume her home regimen but closely monitor for any malignant neuroleptic syndrome. Currently, the patient is not confused and does not have rigid muscle, does not have elevated potassium level and no acute renal failure, but we will place her on seizure precautions and obtain a CK level, in addition baseline EKG for further evaluation and placement on telemetry for further monitoring with Levaquin therapy. 6. History of constipation. MiraLAX and Senokot as needed. Did explain to the patient to request these medications as needed. The patient denies any abdominal pain. 7. Deep vein thrombosis (DVT) prophylaxis.
[2016-10-27] MEDS: HEPARIN SOD (PORCINE) 5000 UNITS/ML VIAL SC SCH ×2 (14:48→21:07)
[2016-10-27 14:50] LABS: INR 1.07
[2016-10-27 16:15] VITALS: BP 130/71
[2016-10-27] MEDS: NS 1,000 ML IV SCH (16:53)
[2016-10-27] MEDS ORDERED: methylPREDNISolone INJ 125 MG/2 ML VIAL (J2930) IV SCH (19:00)
[2016-10-27 20:00] VITALS: BP 119/66
[2016-10-27] MEDS: PANTOPRAZOLE 20 MG TAB PO SCH (20:57)
[2016-10-27] MEDS ORDERED: SUCRALFATE 1 GM TAB PO SCH (21:00)
[2016-10-27] MEDS ORDERED: FAMOTIDINE 20 MG TAB PO SCH (21:00)
[2016-10-27] MEDS ORDERED: traZODone 100 MG TAB PO SCH (21:00)
[2016-10-27] MEDS ORDERED: SIMVASTATIN 20 MG TAB PO SCH (21:00)
[2016-10-27] MEDS ORDERED: MONTELUKAST 10 MG TAB PO SCH (21:00)
[2016-10-27] MEDS ORDERED: QUEtiapine FUMARATE 100 MG TAB PO SCH ×2 (21:00)
[2016-10-28] VITALS: BP 108/61
[2016-10-28] MEDS: NS 1,000 ML IV SCH (01:23)
[2016-10-28] MEDS: IPRATROPIUM 0.5MG/ALBUTEROL 2.5MG INH SOL UD 3ML (DUONEB)(J7620) NEB SCH ×3 (02:00→13:33)
[2016-10-28 04:00] VITALS: BP 125/77
[2016-10-28] MEDS: HEPARIN SOD (PORCINE) 5000 UNITS/ML VIAL SC SCH (05:07)
[2016-10-28 05:15] LABS: ANION GAP 10 MEQ/L (8-16); BLOOD UREA NITROGEN 11 MG/DL (7-18); CALCIUM LEVEL 8.9 MG/DL (8.8-10.2); CARBON DIOXIDE LEVEL 23 MEQ/L (21-32); CHLORIDE LEVEL 111 MEQ/L (98-107); CREATININE FOR GFR 0.54 MG/DL (0.55-1.02); GLOMERULAR FILTRATION RATE > 60.0 (>45); GLUCOSE, FASTING 167 MG/DL (80-110); POTASSIUM SERUM 4.1 MEQ/L (3.5-5.1); SODIUM LEVEL 144 MEQ/L (136-145)
[2016-10-28 07:30] VITALS: BP 123/71
[2016-10-28 08:30] LABS: MEAN CORPUSCULAR HEMOGLOBIN 26.4 pg (27.0-33.0); MEAN CORPUSCULAR HGB CONC 30.9 g/dl (32.0-36.5); MEAN CORPUSCULAR VOLUME 85.4 fl (80.0-96.0); RED CELL DISTRIBUTION WIDTH 16.2 % (11.5-14.5); WHITE BLOOD COUNT 8.3 K/mm3 (4.0-10.0)
[2016-10-28] MEDS ORDERED: ASPIRIN 81 MG ENTERIC TAB PO SCH (09:00)
[2016-10-28] MEDS ORDERED: DULoxetine 30 MG CAP (CYMBALTA) PO SCH ×2 (09:00)
[2016-10-28] MEDS ORDERED: lamoTRIgine 100MG TAB PO SCH (09:00)
[2016-10-28] MEDS ORDERED: clonazePAM 0.5 MG TAB PO SCH (09:00)
[2016-10-28] MEDS: PANTOPRAZOLE 20 MG TAB PO SCH (09:07)
[2016-10-28] MEDS ORDERED: LevoFLOXacin IV 750 MG in APPROPRIATE DILUENT 1 EA IV SCH (12:00)
[2016-10-28] MEDS ORDERED: LEVO750T13 PO (13:07)
--- NOTE | 2016-10-28 16:15 | DSES ---
DATE OF ADMISSION: 10/27/2016 DATE OF DISCHARGE: 10/28/2016 DISCHARGE DIAGNOSIS: Community-acquired pneumonia. SECONDARY DIAGNOSES: 1. Schizoaffective disorder. 2. Dyslipidemia. 3. Gastroesophageal reflux disease. 4. Seasonal allergies. 5. Insomnia. HOSPITAL COURSE: The patient is a 61-year-old female who was admitted to the hospital yesterday with cough, shortness of breath for four days with fever. Chest x-ray did reveal a left lower lobe infiltrate. She was admitted and placed on IV levofloxacin. Her clinical status did quickly improve. She likely had some costochondritis associated with her frequent coughing. She initially did require oxygen, however this morning she is up and ambulating independently without oxygen, maintaining saturations at greater than 94%. She is much improved, but not quite back at her baseline yet. She is feeling better. SUBJECTIVE: This morning, the patient tells me that she still has a cough but it is better. She denies chest pain, fevers, chills, nausea, vomiting, diarrhea and that her shortness of breath is resolving. OBJECTIVE: VITAL SIGNS: Temperature 97.1, pulse 68, respiratory rate 18, blood pressure 125/77, oxygen saturation 95% on room air. GENERAL: She is a very pleasant, elderly, female sitting in a recliner. She does not appear to be in any acute distress. HEENT: She is wearing glasses. She has moist mucous membranes. No elevation in her central venous pressure (CVP). CARDIOVASCULAR EXAM: S1, S2, regular. She is not tachycardiac. RESPIRATORY EXAM: With diminished breath sounds at the left base, but otherwise is fairly clear with good air movement. ABDOMINAL EXAM: Grossly obese. EXTREMITIES: No clubbing, cyanosis, or edema. LABORATORY STUDIES: WBC 8.3, hemoglobin 9.4, platelet count 335. Chemistry panel: Sodium 144, potassium 4.1, chloride 111, bicarbonate 23, BUN 11, creatinine 0.5. Three sets of cardiac enzymes are negative. Microbiology: Blood cultures are negative after 24 hours. Respiratory polymerase chain reaction (PCR) panel is negative. IMAGING: The patient did have a chest x-ray which revealed a left lower lobe infiltrate. ASSESSMENT AND PLAN: This is a 61-year-old female with community-acquired pneumonia. 1. Left lower lobe community-acquired pneumonia. The patient is improving on Levaquin, we will transition her to by mouth. She has tolerated dose without any cardiac abnormalities. She lives with her . She is closer to her baseline. She does appear to be improving. At this time, she is medically stable for discharge home and to followup with her primary care provider (PCP). She has an appointment scheduled to be seen by her primary care provider (PCP) this coming Thursday. 2. Dyslipidemia. She was continued on her statin. 3. Gastroesophageal reflux disease. She is continued on Nexium, Carafate, and ranitidine. 4. Schizoaffective disorder. She is on a complicated regimen, which was not adjusted during this stay. She is continued on Klonopin, Cymbalta, Lamictal, Seroquel, trazodone, and meclizine. 5. Constipation. She was continued on her home bowel regimen. 6. Deep venous thrombosis (DVT) prophylaxis. She was on heparin. DISPOSITION: The patient is being discharged home to the care of her . She is at her functional baseline. Her clinical syndrome is improved. She is to followup with her primary care provider (PCP) as scheduled. Activity and diet are as prior to admission. She is to return to the emergency room (ER) if her symptoms worsen. MEDICATIONS: At the time of discharge: - levofloxacin 750 mg daily for 6 more days - Ventolin HFA two puffs every 4 hours as needed for shortness of breath - aspirin 81 mg daily - clonazepam 0.5 mg daily and every evening as needed for anxiety - duloxetine 90 mg daily - Nexium 20 mg twice a day - Lamictal 150 mg daily - meclizine 25 mg every 8 hours as needed for dizziness - Singulair 10 mg nightly - Zofran 4 mg every 4 hours as needed for nausea - Seroquel 300 mg nightly and 500 mg at bedtime - ranitidine 150 mg daily - simvastatin 20 mg nightly - Carafate 1 gram at bedtime - tizanidine 2 mg three times a day as needed for spasms - tramadol 50 mg every 4 hours as needed for pain - trazodone 200 mg nightly Greater than 30 minutes spent organizing disposition.
--- NOTE | 2016-10-29 21:46 | ECGEPIP ---
Stationary ECG Study 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
[2017-01-26] MEDS ORDERED: NORC1TAB4 PO (15:39)
== END 2016-10-28 14:20 | disposition home or self-care (01) ==
LOC: M ED 09:36 → M ED INP 14:15 → M PCU 16:11
PROVIDERS: ADMIT Internal Medicine; ATTEND Internal Medicine
DX: J18.9 Pneumonia, unspecified organism (principal); F25.9 Schizoaffective disorder, unspecified; E78.4 Other hyperlipidemia; K21.9 Gastro-esophageal reflux disease without esophagitis; G47.00 Insomnia, unspecified; K59.00 Constipation, unspecified; Z88.0 Allergy status to penicillin; Z88.8 Allergy status to other drugs, medicaments and biological substances; Z79.82 Long term (current) use of aspirin; Z79.51 Long term (current) use of inhaled steroids; Z79.899 Other long term (current) drug therapy
CPT/HCPCS: 36415; 36600; 71020; 80048; 80076; 81001; 82550; 82553; 82803; 83735; 84484; 85025; 85027; 85610; 87040; 87086; 87804; 93005; 93041; 94640; 96372; 96374; 96375; 99285; G0378; J1956; J2930

== ENCOUNTER → 2016-11-10 | Outpatient (CLI) | payer OTHER ==
[~2016-11-10] MED LIST changes: +ASPI81TA24 PO; +DULO1CAP3 PO; +E-Z-GAS II EFFERVESCENT PACKET (SODIUM BICARB./CITRIC ACID/SIMETHICONE) As Ordered ONE; +E-Z-HD 98% w/w 340GM SUSP BTL As Ordered ONE; +E-Z-PAQUE 96% w/w SUSP 176GM BTL As Ordered ONE; +LEVO750T13 PO; +NEXI20CA PO; -NICOTINE 21MG/24HR 1 EA TRANSDERMAL TD SCH; +QUET1TAB8 PO; +SERO1TAB2 PO; +SUCR1TAB56 PO
--- NOTE | 2016-11-10 19:18 | REP ---
UPPER GI EXAMINATION: The procedure was performed by CHINA Pierson under the direct supervision of Dr. Pereira. All imaging was reviewed with Dr. Pereira prior to dictation. The patient was able to ingest liquid barium in a quantity sufficient to produce a quality examination. The oral and pharyngeal stages of deglutition appeared unremarkable. Esophageal transport was prompt and efficient. There was no evidence of esophagitis, stricture, or mucosal ring. A hiatal hernia was also seen on imaging. Gastroesophageal reflux was observed to above the level of the gilberto. The stomach dinero were normally outlined. The rugal folds were smooth and regular. There was no evidence of gastritis, neoplasm, or ulcerative disease. The duodenal dinero are normally outlined. There was no evidence of duodenitis, peptic ulcer disease or neoplasm. We were not able to obtain air filled duodenal bulb images. This was due to patient being unable to retain air from the crystals. The visualized portion of the proximal small bowel was normal in course and caliber. IMPRESSION: Gastroesophageal reflux to above the level of the gilberto. Hiatal hernia. Fluoroscopy time 2 minutes 24 seconds. Reviewed by CHINA Bell 11/11/2016 08:15 AEdited and Signed by Siddharth Pereira MD 11/11/2016 04:35 P
== END ==
LOC: M RAD 09:07
PROVIDERS: ATTEND Nurse Practitioner Adult Health
DX: K21.9 Gastro-esophageal reflux disease without esophagitis (principal); K44.9 Diaphragmatic hernia without obstruction or gangrene

== ENCOUNTER → 2016-12-12 | Outpatient (REF) | payer OTHER ==
[~2016-12-12] MED LIST changes: -E-Z-GAS II EFFERVESCENT PACKET (SODIUM BICARB./CITRIC ACID/SIMETHICONE) As Ordered ONE; -E-Z-HD 98% w/w 340GM SUSP BTL As Ordered ONE; -E-Z-PAQUE 96% w/w SUSP 176GM BTL As Ordered ONE
[2016-12-12 17:18] LABS: ALBUMIN 3.2 GM/DL (3.2-5.2); ALBUMIN/GLOBULIN RATIO 0.84 (1.00-1.93); ALKALINE PHOSPHATASE 213 U/L (45-117); ALT/SGPT 16 U/L (12-78); ANION GAP 1 MEQ/L (8-16); AST/SGOT 19 U/L (15-37); BILIRUBIN,TOTAL 0.2 MG/DL (0.2-1.0); BLOOD UREA NITROGEN 14 MG/DL (7-18); CALCIUM LEVEL 8.6 MG/DL (8.8-10.2); CARBON DIOXIDE LEVEL 33 MEQ/L (21-32); CHLORIDE LEVEL 105 MEQ/L (98-107); CHOLESTEROL LEVEL 205 MG/DL (<200); CREATININE FOR GFR 0.65 MG/DL (0.55-1.02); GLOMERULAR FILTRATION RATE > 60.0 (>45); GLUCOSE, FASTING 87 MG/DL (80-110); POTASSIUM SERUM 4.1 MEQ/L (3.5-5.1); SODIUM LEVEL 139 MEQ/L (136-145); TRIGLYCERIDES LEVEL 129 MG/DL (<150)
[2016-12-12 17:46] LABS: MEAN CORPUSCULAR HEMOGLOBIN 27.2 pg (27.0-33.0); MEAN CORPUSCULAR HGB CONC 32.1 g/dl (32.0-36.5); MEAN CORPUSCULAR VOLUME 84.8 fl (80.0-96.0); RED CELL DISTRIBUTION WIDTH 16.4 % (11.5-14.5); WHITE BLOOD COUNT 4.1 K/mm3 (4.0-10.0)
== END ==
LOC: M SFHCPLAZ 14:07
PROVIDERS: ATTEND Nurse Practitioner Adult Health
DX: M25.50 Pain in unspecified joint (principal); E55.9 Vitamin D deficiency, unspecified

== ENCOUNTER → 2016-12-12 | Outpatient (CLI) | payer OTHER ==
--- NOTE | 2016-12-12 15:26 | REP ---
Chest x-ray: Two views. History: Community-acquired pneumonia of the left lower lobe of the lung. Comparison study: October 27, 2016. Findings: The previously noted left lower lobe infiltrate has resolved. Pleural angles are sharp. No new infiltrate is seen. Heart is enlarged unchanged. The aorta is calcific. There are calcific granulomatous lymph node residuals in the left mediastinum unchanged. Right hemidiaphragm remains slightly elevated. The aorta is tortuous as before. Impression: No active cardiopulmonary disease. Mild cardiomegaly unchanged. Previously noted infiltrate has resolved. Signed by Mohinder Lee MD 12/12/2016 05:11 P
== END ==
LOC: M LRY 14:08
PROVIDERS: ATTEND Nurse Practitioner Adult Health
DX: J18.1 Lobar pneumonia, unspecified organism (principal); I51.7 Cardiomegaly; M25.50 Pain in unspecified joint; E55.9 Vitamin D deficiency, unspecified; I70.0 Atherosclerosis of aorta; I77.1 Stricture of artery

== ENCOUNTER → 2017-01-30 | Outpatient (CLI) | payer OTHER ==
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
== END ==
LOC: M PAIN 09:00
PROVIDERS: ATTEND Anesthesiology
DX: M51.16 Intervertebral disc disorders with radiculopathy, lumbar region (principal); M51.17 Intervertebral disc disorders with radiculopathy, lumbosacral region; M79.1 Myalgia; M54.2 Cervicalgia; M47.816 Spondylosis without myelopathy or radiculopathy, lumbar region; G89.29 Other chronic pain; K21.9 Gastro-esophageal reflux disease without esophagitis; E78.00 Pure hypercholesterolemia, unspecified; F25.0 Schizoaffective disorder, bipolar type; Z79.82 Long term (current) use of aspirin; Z79.899 Other long term (current) drug therapy; Z88.0 Allergy status to penicillin; Z88.5 Allergy status to narcotic agent

== ENCOUNTER → 2017-02-23 | Outpatient (CLI) | payer OTHER ==
[2017-02-23 14:11] LABS: URIC ACID 4.7 MG/DL (2.6-6.0)
--- NOTE | 2017-02-24 04:47 | REP ---
Clinical: Neck pain and osteoporosis . Technique: AP, lateral, flexion/extension, bilateral oblique, swimmers and open-mouth views the cervical spine Findings: Alignment and lordosis is maintained. There is no evidence for acute fracture / compression injury or subluxation. Mild multilevel age-related changes are appreciated including subtle anterior spurring and minimal endplate sclerosis. Oblique views demonstrate patent neural foramen. Open mouth view demonstrates normal C1-C2 articulation and odontoid process. Impression: Essentially age-appropriate cervical spine series. Signed by Ken De León MD 02/24/2017 04:40 A
--- NOTE | 2017-02-24 04:54 | REP ---
Clinical: Osteoporosis. Technique: AP and lateral views of the lumbosacral spine. Findings: Mild multilevel degenerative changes include increased sclerosis to the endplates and minimal disc space narrowing. Mild diffuse osteopenia noted. No acute fracture dislocation. Alignment and lordosis maintained. Impression: Mild osteopenia and mild multilevel degenerative changes. Signed by Ken De León MD 02/24/2017 04:46 A
--- NOTE | 2017-02-24 04:55 | REP ---
Clinical: Osteoporosis. Technique: AP and lateral views of the thoracolumbar spine. Findings: Moderate osteopenia is appreciated. Alignment is maintained. No acute fracture / compression injury or subluxation. Impression: Moderate osteopenia and no evidence for acute fracture / compression injury. Signed by Ken De León MD 02/24/2017 04:47 A
== END ==
LOC: M LAB 12:35
PROVIDERS: ATTEND Family Medicine
DX: M81.0 Age-related osteoporosis without current pathological fracture (principal)
CPT/HCPCS: 36415; 72052; 72072; 72100; 80175; 82306; 82607; 84550; G0480

== ENCOUNTER → 2017-03-12 | Outpatient (CLI) | payer OTHER, MEDICARE, MEDICAID ==
[~2017-03-12] MED LIST changes: +diazePAM 5 MG TAB As Ordered ONE; +oxyCODONE 5MG TAB As Ordered ONE
== END ==
LOC: M PAIN 11:15
PROVIDERS: ATTEND Anesthesiology
DX: Z53.29 Procedure and treatment not carried out because of patient's decision for other reasons (principal)

== ENCOUNTER → 2017-04-10 | Outpatient (CLI) | payer BC ==
[2017-04-10 13:19] LABS: BASO # 0.1 10^3/uL (0.0-0.2); BASO % 1.4 % (0.0-1.0); EOS # 0.2 10^3/uL (0.0-0.50); EOS % 3.2 % (0.0-3.0); HEMATOCRIT 37.8 % (36.0-47.0); HEMOGLOBIN 11.1 g/dl (12.0-16.0); IMMATURE GRANULOCYTE % 0.4 % (0-0); LYMPH # 1.7 10^3/uL (1.5-4.5); LYMPH % 30.5 % (24.0-44.0); MEAN CORPUSCULAR HEMOGLOBIN 24.3 pg (27.0-33.0); MEAN CORPUSCULAR HGB CONC 29.4 g/dl (32.0-36.5); MEAN CORPUSCULAR VOLUME 82.9 fl (80.0-96.0); MONO # 0.5 10^3/uL (0.0-0.8); NEUTROPHILS # 3.1 10^3/uL (1.8-7.7); NEUTROPHILS % 55.5 % (36.0-66.0); PLATELET COUNT, AUTOMATED 334 10^3/uL (150-450); RED BLOOD COUNT 4.56 10^6/uL (4.00-5.40); RED CELL DISTRIBUTION WIDTH 17.4 % (11.5-14.5); WHITE BLOOD COUNT 5.6 10^3/uL (4.0-10.0)
[2017-04-10 13:50] LABS: ERYTHROCYTE SEDIMENTATION RATE 30 mm/hr (0-30)
[2017-04-10 13:59] LABS: C REACTIVE PROTEIN QUANTITATIV < 0.30 MG/DL (0.00-0.30)
== END ==
LOC: M LAB 12:49
DX: S80.02XD Contusion of left knee, subsequent encounter (principal)

== ENCOUNTER → 2017-04-14 | Outpatient (REF) | payer MEDICARE ==
[2017-04-14 18:13] LABS: TOTAL PROTEIN 7.6 GM/DL (6.4-8.2)
== END ==
LOC: M SFHCPLAZ 15:54
DX: H66.91 Otitis media, unspecified, right ear (principal)
CPT/HCPCS: 84165

== ENCOUNTER → 2017-04-15 | Outpatient (CLI) | payer MEDICARE, OTHER | LOC: M RAD 11:07 | DX: S80.01XD Contusion of right knee, subsequent encounter (principal) | CPT/HCPCS: 78315 ==

== ENCOUNTER → 2017-04-22 | Outpatient (CLI) | payer MEDICARE ==
[~2017-04-22] MED LIST changes: -/DULO30CA OR; -/ESOM40CA; -/ESOM40CA OR; -/QUET10TA OR; -/QUET25TA OR; -/WARF25TA PO; -ABIL10TA; -ABIL20TA2; -ABIL30TA4 OR; -ACET-683 PO; -ACET30TAB PO; -ACIPHEX OR; -ALBU17IN INH; -ASPI-101 PO; -ASPI81TA24 PO; -ASPIRIN PO; -ATARAX OR; -ATOM40CA; -AZIT-12 PO; -BUSP10TA2 OR; -BUSP30TA; -CELE100C OR; -CELE40TA OR; -CLAR5CHW; -CLAR5CHW OR; -CLON0.5T OR; -CLON0.5T PO; -COGE1INJ; -COGE1INJ OR; -COLA100C2 OR; -COUM2.5T17 PO; -CVS20TAB PO; -CYMB60CA3 PO; -CYMBALTA PO; -DITR1TAB PO; -DULO1CAP2 PO; -DULO1CAP3 PO; -EFFE150C; -EFFE150C OR; -EFFE75CA75 OR; -FERR325T; -GABAPOW41 PO; -HALO10TA4; +ISOVUE-M 300 61% 15ML VIAL (Q9967) As Ordered; -LAMI1TAB8 PO; -LAMI25TA; -LAMI25TA OR; -LAMO10TA PO; -LEVO750T13 PO; -LIDO5DIS41 TD; +LIDOCAINE 1% SDV INJ 30 ML VIAL As Ordered; -MECL-68 PO; -MONT10TA2 PO; -NAPR250T4 PO; -NEXI20CA PO; -NEXI40CA PO; -NORC1TAB4 PO; -OMEP20TA7 OR; +ONDANSETRON 4 MG ORAL DISINTEGRATING TAB (S0181) As Ordered; -PERC5TAB12 PO; -PERC7.5T12 PO; -PRIL20CA; -QUET1TAB10 PO; -QUET1TAB8 PO; -QUET1TAB9 PO; -QUET30TA OR; -RANI150T PO; -RANI1TAB38 PO; -SENN1TAB10 PO; -SERO1TAB2 PO; -SERO200T OR; -SEROQUEL PO; -SIMV20TA2 PO; -SUCR1TA PO; -SUCR1TAB56 PO; -TIZA2CAP3 PO; -TIZA4CAP3 PO; -TRAM1CAP15 PO; -TRAM50TA2 OR; -TRAM50TA2 PO; -TRAZ-136 PO; -TRAZ100T OR; -TRAZ1TAB14 PO; -TRAZ300T2 PO; -TRAZ50TA; -TRAZADONE PO; -TUMS750C20 PO; -TYLE325C PO; -TYLE325T5 PO; -VENL75TA2 OR; -VENLAFAXINE PO; -VITA200038 PO; -VITAMIN B 12 PO; -ZOCO20TA OR; -ZOFR4TAB3 PO; -ZYPR10TA OR; +diazePAM 5 MG TAB As Ordered; -diazePAM 5 MG TAB As Ordered ONE; -flonase; +methylPREDNISolone SUSP 40 MG/ML (DEPO-medrol) VIAL (J1030) As Ordered; +oxyCODONE 5MG TAB As Ordered; -oxyCODONE 5MG TAB As Ordered ONE
== END ==
LOC: M PAIN 10:45
DX: G89.29 Other chronic pain (principal); M51.16 Intervertebral disc disorders with radiculopathy, lumbar region; F32.9 Major depressive disorder, single episode, unspecified; F41.9 Anxiety disorder, unspecified; K21.9 Gastro-esophageal reflux disease without esophagitis; M19.90 Unspecified osteoarthritis, unspecified site; I25.2 Old myocardial infarction; E55.9 Vitamin D deficiency, unspecified; E78.00 Pure hypercholesterolemia, unspecified; Z79.82 Long term (current) use of aspirin; Z79.891 Long term (current) use of opiate analgesic; Z79.899 Other long term (current) drug therapy; Z88.0 Allergy status to penicillin; Z88.5 Allergy status to narcotic agent
CPT/HCPCS: J1030

== ENCOUNTER 2017-05-17 14:00 | Emergency (ER) | payer MEDICARE ==
[2017-05-17] MEDS: ACETAMINOPHEN TAB 650MG DOSE (2X325MG) PO (16:58)
[2017-05-17 17:11] LABS: BASO # 0.1 10^3/uL (0.0-0.2); BASO % 1.1 % (0.0-1.0); EOS # 0.2 10^3/uL (0.0-0.50); EOS % 3.6 % (0.0-3.0); HEMATOCRIT 37.3 % (36.0-47.0); HEMOGLOBIN 11.3 g/dl (12.0-16.0); IMMATURE GRANULOCYTE % 1.1 % (0-3.0); LYMPH # 1.5 10^3/uL (1.5-4.5); LYMPH % 31.2 % (24.0-44.0); MEAN CORPUSCULAR HEMOGLOBIN 25.1 pg (27.0-33.0); MEAN CORPUSCULAR HGB CONC 30.3 g/dl (32.0-36.5); MEAN CORPUSCULAR VOLUME 82.7 fl (80.0-96.0); MONO # 0.4 10^3/uL (0.0-0.8); MONO % 8.6 % (0.0-5.0); NEUTROPHILS # 2.6 10^3/uL (1.8-7.7); NEUTROPHILS % 54.4 % (36.0-66.0); PLATELET COUNT, AUTOMATED 366 10^3/uL (150-450); RED BLOOD COUNT 4.51 10^6/uL (4.00-5.40); RED CELL DISTRIBUTION WIDTH 17.1 % (11.5-14.5); WHITE BLOOD COUNT 4.8 10^3/uL (4.0-10.0)
[2017-05-17 17:26] LABS: ALBUMIN 3.3 GM/DL (3.2-5.2); ALBUMIN/GLOBULIN RATIO 0.83 (1.00-1.93); ALKALINE PHOSPHATASE 209 U/L (45-117); ALT/SGPT 18 U/L (12-78); ANION GAP 7 MEQ/L (8-16); AST/SGOT 18 U/L (7-37); BILIRUBIN,TOTAL 0.2 MG/DL (0.2-1.0); BLOOD UREA NITROGEN 15 MG/DL (7-18); C REACTIVE PROTEIN QUANTITATIV 0.56 MG/DL (0.00-0.30); CALCIUM LEVEL 8.7 MG/DL (8.8-10.2); CARBON DIOXIDE LEVEL 27 MEQ/L (21-32); CHLORIDE LEVEL 106 MEQ/L (98-107); CREATININE FOR GFR 0.67 MG/DL (0.55-1.30); GLOMERULAR FILTRATION RATE > 60.0 (>45); GLUCOSE, FASTING 95 MG/DL (70-100); MAGNESIUM LEVEL 2.4 MG/DL (1.8-2.4); POTASSIUM SERUM 4.2 MEQ/L (3.5-5.1); SODIUM LEVEL 140 MEQ/L (136-145); TOTAL PROTEIN 7.3 GM/DL (6.4-8.2)
[2017-05-17] MEDS: AZITHROMYCIN 250 MG TAB PO (18:24)
== END 2017-05-17 18:49 | disposition home or self-care (01) ==
LOC: M ED 14:00
DX: J02.8 Acute pharyngitis due to other specified organisms (principal); F20.9 Schizophrenia, unspecified; F32.9 Major depressive disorder, single episode, unspecified; Z79.82 Long term (current) use of aspirin; Z79.899 Other long term (current) drug therapy; Z88.5 Allergy status to narcotic agent; Z88.6 Allergy status to analgesic agent; Z88.0 Allergy status to penicillin
CPT/HCPCS: 71046

== ENCOUNTER → 2017-05-26 | Outpatient (CLI) | payer MEDICARE | LOC: M PAIN 09:15 | DX: M53.3 Sacrococcygeal disorders, not elsewhere classified (principal); M48.07 Spinal stenosis, lumbosacral region; K21.9 Gastro-esophageal reflux disease without esophagitis; E78.00 Pure hypercholesterolemia, unspecified; F25.0 Schizoaffective disorder, bipolar type; F32.9 Major depressive disorder, single episode, unspecified; K59.00 Constipation, unspecified; F41.9 Anxiety disorder, unspecified; E55.9 Vitamin D deficiency, unspecified; Z79.82 Long term (current) use of aspirin; Z79.891 Long term (current) use of opiate analgesic; Z79.899 Other long term (current) drug therapy; Z88.0 Allergy status to penicillin; Z88.5 Allergy status to narcotic agent | CPT/HCPCS: G0463 ==

== ENCOUNTER → 2017-06-05 | Outpatient (CLI) | payer MEDICARE | LOC: M RAD 10:46 | DX: R10.84 Generalized abdominal pain (principal) | CPT/HCPCS: 74021 ==

== ENCOUNTER 2017-06-14 17:06 | Emergency (ER) | payer MEDICARE ==
[2017-06-14] MEDS: traMADol 50 MG TAB PO (17:35)
== END 2017-06-14 18:07 | disposition home or self-care (01) ==
LOC: M ED 17:06
DX: S40.021A Contusion of right upper arm, initial encounter (principal); W01.10XA Fall on same level from slipping, tripping and stumbling with subsequent striking against unspecified object, initial encounter; Y92.099 Unspecified place in other non-institutional residence as the place of occurrence of the external cause; Y93.9 Activity, unspecified; I10 Essential (primary) hypertension; E66.9 Obesity, unspecified; Z79.82 Long term (current) use of aspirin; Z79.899 Other long term (current) drug therapy; Z88.6 Allergy status to analgesic agent; Z88.0 Allergy status to penicillin; Z88.5 Allergy status to narcotic agent
CPT/HCPCS: 73060

== ENCOUNTER 2017-06-16 17:14 | Emergency (ER) | payer MEDICARE ==
[2017-06-16] MEDS: traMADol 50 MG TAB PO (18:20)
[2017-06-16] MEDS: DERMABOND TOPICAL SKIN ADHESIVE TOP (18:20)
[2017-06-16] MEDS: TETANUS/DIPHTHERIA TOX ADSORB ADULT 0.5ML SYR/VIAL (90714) IM (18:27)
== END 2017-06-16 18:45 | disposition home or self-care (01) ==
LOC: M ED 17:14
DX: S61.012A Laceration without foreign body of left thumb without damage to nail, initial encounter (principal); W26.0XXA Contact with knife, initial encounter; Y92.018 Other place in single-family (private) house as the place of occurrence of the external cause; J44.9 Chronic obstructive pulmonary disease, unspecified; E78.9 Disorder of lipoprotein metabolism, unspecified
CPT/HCPCS: 90714

== ENCOUNTER → 2017-06-23 | Outpatient (CLI) | payer MEDICARE ==
[~2017-06-23] MED LIST changes: +BUPIVACAINE HCL 0.25% 30 ML VIAL As Ordered; -ONDANSETRON 4 MG ORAL DISINTEGRATING TAB (S0181) As Ordered; +TRIAMCINOLONE ACETONIDE SUSP 40 MG/ML VIAL (J3301) As Ordered; -methylPREDNISolone SUSP 40 MG/ML (DEPO-medrol) VIAL (J1030) As Ordered
== END ==
LOC: M PAIN 10:45
DX: G89.29 Other chronic pain (principal); M46.1 Sacroiliitis, not elsewhere classified; M53.88 Other specified dorsopathies, sacral and sacrococcygeal region; Z79.82 Long term (current) use of aspirin; Z79.891 Long term (current) use of opiate analgesic; Z79.899 Other long term (current) drug therapy; Z88.0 Allergy status to penicillin; Z88.5 Allergy status to narcotic agent; Z96.651 Presence of right artificial knee joint; Z96.652 Presence of left artificial knee joint
CPT/HCPCS: J3301

== ENCOUNTER 2017-07-08 11:05 | Outpatient (RCR) | payer MEDICARE | END 2017-07-20 | LOC: M PT 11:05 | DX: M54.2 Cervicalgia (principal); M46.1 Sacroiliitis, not elsewhere classified; M12.9 Arthropathy, unspecified | CPT/HCPCS: 97110 ==

== ENCOUNTER → 2017-07-09 | Outpatient (CLI) | payer MEDICARE | LOC: M RAD 08:40 | DX: M54.2 Cervicalgia (principal) | CPT/HCPCS: 72141 ==

== ENCOUNTER → 2017-07-21 | Outpatient (REF) | payer MEDICARE ==
[2017-07-21 15:55] LABS: BASO % 1.1 % (0.0-1.0); EOS # 0.1 10^3/uL (0.0-0.50); EOS % 3.2 % (0.0-3.0); HEMATOCRIT 35.6 % (36.0-47.0); HEMOGLOBIN 10.8 g/dl (12.0-15.5); IMMATURE GRANULOCYTE % 0.3 % (0-3.0); LYMPH # 1.5 10^3/uL (1.5-4.5); LYMPH % 38.7 % (24.0-44.0); MEAN CORPUSCULAR HEMOGLOBIN 25.4 pg (27.0-33.0); MEAN CORPUSCULAR HGB CONC 30.3 g/dl (32.0-36.5); MEAN CORPUSCULAR VOLUME 83.8 fl (80.0-96.0); MONO # 0.3 10^3/uL (0.0-0.8); MONO % 8.9 % (0.0-5.0); NEUTROPHILS # 1.8 10^3/uL (1.8-7.7); NEUTROPHILS % 47.8 % (36.0-66.0); PLATELET COUNT, AUTOMATED 290 10^3/uL (150-450); RED BLOOD COUNT 4.25 10^6/uL (4.00-5.40); RED CELL DISTRIBUTION WIDTH 17.7 % (11.5-14.5); WHITE BLOOD COUNT 3.8 10^3/uL (4.0-10.0)
[2017-07-21 16:14] LABS: RHEUMATOID FACTOR QUANT < 10.0 IU/ML (<15.0)
[2017-07-21 16:14] LABS: C REACTIVE PROTEIN QUANTITATIV 0.54 MG/DL (0.00-0.30)
[2017-07-21 16:48] LABS: ERYTHROCYTE SEDIMENTATION RATE 37 mm/hr (0-30)
[2017-07-24 00:07] LABS: ANTINUCLEAR ANTIBODIES DIRECT Negative (Negative); Lyme Disease IgG/IgM Antibodie <0.91 ISR (0.00-0.90); Lyme Disease IgM Ab Quantitati <0.80 index (0.00-0.79)
== END ==
LOC: M LABDRAW1 11:27
DX: M18.0 Bilateral primary osteoarthritis of first carpometacarpal joints (principal); Z79.899 Other long term (current) drug therapy
CPT/HCPCS: 86140

== ENCOUNTER → 2017-08-10 | Outpatient (CLI) | payer MEDICARE, MEDICAID | LOC: M PAIN 09:00 | DX: M47.812 Spondylosis without myelopathy or radiculopathy, cervical region (principal); M47.897 Other spondylosis, lumbosacral region; G89.29 Other chronic pain; F25.9 Schizoaffective disorder, unspecified; F32.9 Major depressive disorder, single episode, unspecified; F41.9 Anxiety disorder, unspecified; M19.90 Unspecified osteoarthritis, unspecified site; E55.9 Vitamin D deficiency, unspecified; E78.00 Pure hypercholesterolemia, unspecified; K44.9 Diaphragmatic hernia without obstruction or gangrene; I25.2 Old myocardial infarction; Z79.82 Long term (current) use of aspirin; Z79.891 Long term (current) use of opiate analgesic; Z79.899 Other long term (current) drug therapy; Z88.0 Allergy status to penicillin; Z88.5 Allergy status to narcotic agent; Z96.653 Presence of artificial knee joint, bilateral | CPT/HCPCS: G0463 ==

== ENCOUNTER → 2017-08-21 | Outpatient (REF) | payer MEDICARE, MEDICAID | LOC: M SFHCPLAZ 12:20 | DX: J02.9 Acute pharyngitis, unspecified (principal) | CPT/HCPCS: 87081 ==

== ENCOUNTER → 2017-08-21 | Outpatient (REF) | payer MEDICARE, MEDICAID ==
[2017-08-21 10:58] LABS: BASO # 0.1 10^3/uL (0.0-0.2); BASO % 1.3 % (0.0-1.0); EOS # 0.1 10^3/uL (0.0-0.50); EOS % 1.4 % (0.0-3.0); HEMATOCRIT 35.7 % (36.0-47.0); HEMOGLOBIN 10.9 g/dl (12.0-15.5); IMMATURE GRANULOCYTE % 0.3 % (0-3.0); LYMPH # 1.5 10^3/uL (1.5-4.5); LYMPH % 21.7 % (24.0-44.0); MEAN CORPUSCULAR HEMOGLOBIN 25.3 pg (27.0-33.0); MEAN CORPUSCULAR HGB CONC 30.5 g/dl (32.0-36.5); MEAN CORPUSCULAR VOLUME 82.8 fl (80.0-96.0); MONO # 0.8 10^3/uL (0.0-0.8); MONO % 11.4 % (0.0-5.0); NEUTROPHILS # 4.4 10^3/uL (1.8-7.7); NEUTROPHILS % 63.9 % (36.0-66.0); PLATELET COUNT, AUTOMATED 291 10^3/uL (150-450); RED BLOOD COUNT 4.31 10^6/uL (4.00-5.40); RED CELL DISTRIBUTION WIDTH 17.2 % (11.5-14.5); WHITE BLOOD COUNT 6.9 10^3/uL (4.0-10.0)
== END ==
LOC: M SFHCPLAZ 09:17
DX: J02.9 Acute pharyngitis, unspecified (principal); R06.2 Wheezing
CPT/HCPCS: 85025

== ENCOUNTER → 2017-09-09 | Outpatient (CLI) | payer MEDICARE, OTHER | LOC: M PAIN 09:15 | DX: G89.29 Other chronic pain (principal); M47.816 Spondylosis without myelopathy or radiculopathy, lumbar region; M47.817 Spondylosis without myelopathy or radiculopathy, lumbosacral region; F41.9 Anxiety disorder, unspecified; F32.9 Major depressive disorder, single episode, unspecified; K21.9 Gastro-esophageal reflux disease without esophagitis; E78.00 Pure hypercholesterolemia, unspecified; F25.0 Schizoaffective disorder, bipolar type; Z79.899 Other long term (current) drug therapy; Z88.0 Allergy status to penicillin; Z88.5 Allergy status to narcotic agent | CPT/HCPCS: J3301 ==

== ENCOUNTER → 2017-10-01 | Outpatient (CLI) | payer MEDICARE, MEDICAID | LOC: M PAIN 10:30 | DX: M47.816 Spondylosis without myelopathy or radiculopathy, lumbar region (principal); M47.817 Spondylosis without myelopathy or radiculopathy, lumbosacral region; F25.9 Schizoaffective disorder, unspecified; F32.9 Major depressive disorder, single episode, unspecified; F41.9 Anxiety disorder, unspecified; K21.9 Gastro-esophageal reflux disease without esophagitis; E55.9 Vitamin D deficiency, unspecified; M19.90 Unspecified osteoarthritis, unspecified site; E78.00 Pure hypercholesterolemia, unspecified; K44.9 Diaphragmatic hernia without obstruction or gangrene; Z96.653 Presence of artificial knee joint, bilateral; Z98.41 Cataract extraction status, right eye; Z88.0 Allergy status to penicillin; Z88.5 Allergy status to narcotic agent | CPT/HCPCS: G0463 ==

== ENCOUNTER → 2017-10-21 | Outpatient (CLI) | payer MEDICARE ==
[~2017-10-21] MED LIST changes: -TRIAMCINOLONE ACETONIDE SUSP 40 MG/ML VIAL (J3301) As Ordered; -diazePAM 5 MG TAB As Ordered; -oxyCODONE 5MG TAB As Ordered
== END ==
LOC: M PAIN 08:30
DX: G89.29 Other chronic pain (principal); M47.816 Spondylosis without myelopathy or radiculopathy, lumbar region; M47.817 Spondylosis without myelopathy or radiculopathy, lumbosacral region; F31.9 Bipolar disorder, unspecified; F41.9 Anxiety disorder, unspecified; M19.90 Unspecified osteoarthritis, unspecified site; E55.9 Vitamin D deficiency, unspecified; E78.00 Pure hypercholesterolemia, unspecified; K44.9 Diaphragmatic hernia without obstruction or gangrene; I25.2 Old myocardial infarction; Z79.82 Long term (current) use of aspirin; Z79.899 Other long term (current) drug therapy; Z88.0 Allergy status to penicillin; Z88.5 Allergy status to narcotic agent; Z88.6 Allergy status to analgesic agent; Z96.653 Presence of artificial knee joint, bilateral
CPT/HCPCS: Q9967

== ENCOUNTER → 2017-11-11 | Outpatient (REF) | payer MEDICARE, MEDICAID ==
[2017-11-11 17:47] LABS: BASO # 0.1 10^3/uL (0.0-0.2); BASO % 1.2 % (0.0-1.0); EOS # 0.2 10^3/uL (0.0-0.50); EOS % 2.3 % (0.0-3.0); HEMATOCRIT 34.9 % (36.0-47.0); HEMOGLOBIN 10.5 g/dl (12.0-15.5); IMMATURE GRANULOCYTE % 1.2 % (0-3.0); LYMPH # 1.7 10^3/uL (1.5-4.5); LYMPH % 24.5 % (24.0-44.0); MEAN CORPUSCULAR HEMOGLOBIN 25.7 pg (27.0-33.0); MEAN CORPUSCULAR HGB CONC 30.1 g/dl (32.0-36.5); MEAN CORPUSCULAR VOLUME 85.5 fl (80.0-96.0); MONO # 0.6 10^3/uL (0.0-0.8); MONO % 9.1 % (0.0-5.0); NEUTROPHILS # 4.2 10^3/uL (1.8-7.7); NEUTROPHILS % 61.7 % (36.0-66.0); PLATELET COUNT, AUTOMATED 321 10^3/uL (150-450); RED BLOOD COUNT 4.08 10^6/uL (4.00-5.40); RED CELL DISTRIBUTION WIDTH 17.2 % (11.5-14.5); RETIC HEMOGLOBIN EQUIVALENT 26.6 pg (24-36); RETICULOCYTE % 1.3 % (0.5-1.5); WHITE BLOOD COUNT 6.8 10^3/uL (4.0-10.0)
[2017-11-11 18:34] LABS: ANION GAP 7 MEQ/L (8-16); BLOOD UREA NITROGEN 11 MG/DL (7-18); CALCIUM LEVEL 8.5 MG/DL (8.8-10.2); CARBON DIOXIDE LEVEL 30 MEQ/L (21-32); CHLORIDE LEVEL 107 MEQ/L (98-107); CREATININE FOR GFR 0.67 MG/DL (0.55-1.30); FERRITIN 6 NG/ML (8-252); GLOMERULAR FILTRATION RATE > 60.0 (>45); GLUCOSE, FASTING 91 MG/DL (70-100); IRON (FE) 29 UG/DL (50-170); SODIUM LEVEL 144 MEQ/L (136-145); TOTAL IRON BINDING CAPACITY 413 UG/DL (250-450)
[2017-11-13 08:06] LABS: TRANSFERRIN 345 mg/dL (200-370)
== END ==
LOC: M SFHCPLAZ 15:26
DX: Z01.818 Encounter for other preprocedural examination (principal); M18.11 Unilateral primary osteoarthritis of first carpometacarpal joint, right hand; M65.311 Trigger thumb, right thumb; D64.9 Anemia, unspecified
CPT/HCPCS: 82728

== ENCOUNTER → 2017-11-25 | Outpatient (CLI) | payer MEDICARE, OTHER, MEDICAID ==
[~2017-11-25] MED LIST changes: -BUPIVACAINE HCL 0.25% 30 ML VIAL As Ordered; +E-Z-GAS II EFFERVESCENT PACKET (SODIUM BICARB./CITRIC ACID/SIMETHICONE) As Ordered; +E-Z-HD 98% w/w 340GM SUSP BTL As Ordered; +E-Z-PAQUE 96% w/w SUSP 176GM BTL As Ordered; -ISOVUE-M 300 61% 15ML VIAL (Q9967) As Ordered; -LIDOCAINE 1% SDV INJ 30 ML VIAL As Ordered
== END ==
LOC: M RAD 07:57
DX: R13.10 Dysphagia, unspecified (principal); K21.9 Gastro-esophageal reflux disease without esophagitis; K44.9 Diaphragmatic hernia without obstruction or gangrene
CPT/HCPCS: 74220

== ENCOUNTER 2017-12-21 16:04 | Emergency (ER) | payer MEDICARE, OTHER, MEDICAID ==
[2017-12-21 16:46] LABS: BASO # 0.1 10^3/uL (0.0-0.2); BASO % 1.1 % (0.0-1.0); EOS # 0.3 10^3/uL (0.0-0.50); EOS % 4.6 % (0.0-3.0); HEMATOCRIT 36.4 % (36.0-47.0); HEMOGLOBIN 10.8 g/dl (12.0-15.5); IMMATURE GRANULOCYTE % 0.3 % (0-3.0); LYMPH % 31.1 % (24.0-44.0); MEAN CORPUSCULAR HEMOGLOBIN 24.8 pg (27.0-33.0); MEAN CORPUSCULAR HGB CONC 29.7 g/dl (32.0-36.5); MEAN CORPUSCULAR VOLUME 83.5 fl (80.0-96.0); MONO # 0.7 10^3/uL (0.0-0.8); NEUTROPHILS # 3.4 10^3/uL (1.8-7.7); NEUTROPHILS % 52.9 % (36.0-66.0); PLATELET COUNT, AUTOMATED 358 10^3/uL (150-450); RED BLOOD COUNT 4.36 10^6/uL (4.00-5.40); RED CELL DISTRIBUTION WIDTH 16.6 % (11.5-14.5); WHITE BLOOD COUNT 6.5 10^3/uL (4.0-10.0)
[2017-12-21 17:01] LABS: INR 0.96; PROTHROMBIN TIME 12.9 SECONDS (12.1-14.4)
[2017-12-21 17:02] LABS: PARTIAL THROMBOPLASTIN TIME 47.8 SECONDS (25.4-37.6)
[2017-12-21] MEDS: ASPIRIN 81 MG CHEW TABLET PO (17:09)
[2017-12-21 17:20] LABS: ALBUMIN 3.3 GM/DL (3.2-5.2); ALBUMIN/GLOBULIN RATIO 0.87 (1.00-1.93); ALKALINE PHOSPHATASE 167 U/L (45-117); ALT/SGPT 15 U/L (12-78); ANION GAP 9 MEQ/L (8-16); AST/SGOT 19 U/L (7-37); BILIRUBIN,DIRECT < 0.1 MG/DL (0.0-0.2); BILIRUBIN,TOTAL 0.2 MG/DL (0.2-1.0); BLOOD UREA NITROGEN 12 MG/DL (7-18); CALCIUM LEVEL 9.1 MG/DL (8.8-10.2); CARBON DIOXIDE LEVEL 27 MEQ/L (21-32); CHLORIDE LEVEL 107 MEQ/L (98-107); CK-MB VALUE MASS < 1.0 NG/ML (<3.6); CPK CREATINE PHOSPHOKINASE 43 U/L (26-192); CREATININE FOR GFR 0.73 MG/DL (0.55-1.30); FREE T4 0.87 NG/DL (0.76-1.46); GLOMERULAR FILTRATION RATE > 60.0 (>45); GLUCOSE, FASTING 88 MG/DL (70-100); LIPASE 96 U/L (73-393); MB/CK RELATIVE INDEX 2.33 (< OR =4); SODIUM LEVEL 143 MEQ/L (136-145); TOTAL PROTEIN 7.1 GM/DL (6.4-8.2); TROPONIN I < 0.02 NG/ML (< 0.10)
[2017-12-21] MEDS ORDERED: ISOVUE-370 76% 100ML VIAL (Q9967) As Ordered (17:45)
== END 2017-12-21 20:46 | disposition home or self-care (01) ==
LOC: M ED 16:04
DX: R07.89 Other chest pain (principal); I25.2 Old myocardial infarction; E78.5 Hyperlipidemia, unspecified; K21.9 Gastro-esophageal reflux disease without esophagitis; E55.9 Vitamin D deficiency, unspecified; F20.9 Schizophrenia, unspecified; F32.9 Major depressive disorder, single episode, unspecified; F41.9 Anxiety disorder, unspecified; Z79.82 Long term (current) use of aspirin; Z79.899 Other long term (current) drug therapy; Z88.5 Allergy status to narcotic agent; Z88.6 Allergy status to analgesic agent; Z88.0 Allergy status to penicillin
CPT/HCPCS: Q9967

== ENCOUNTER → 2017-12-23 | Outpatient (CLI) | payer MEDICARE, MEDICAID ==
[~2017-12-23] MED LIST changes: +BUPIVACAINE HCL 0.25% 30 ML VIAL As Ordered; -E-Z-GAS II EFFERVESCENT PACKET (SODIUM BICARB./CITRIC ACID/SIMETHICONE) As Ordered; -E-Z-HD 98% w/w 340GM SUSP BTL As Ordered; -E-Z-PAQUE 96% w/w SUSP 176GM BTL As Ordered; +ISOVUE-M 300 61% 15ML VIAL (Q9967) As Ordered; +LIDOCAINE 1% SDV INJ 30 ML VIAL As Ordered
== END ==
LOC: M PAIN 10:30
DX: M47.816 Spondylosis without myelopathy or radiculopathy, lumbar region (principal); M47.817 Spondylosis without myelopathy or radiculopathy, lumbosacral region; F25.9 Schizoaffective disorder, unspecified; F32.9 Major depressive disorder, single episode, unspecified; F41.9 Anxiety disorder, unspecified; M19.90 Unspecified osteoarthritis, unspecified site; E55.9 Vitamin D deficiency, unspecified; E78.00 Pure hypercholesterolemia, unspecified; K44.9 Diaphragmatic hernia without obstruction or gangrene; I25.2 Old myocardial infarction; M48.061 Spinal stenosis, lumbar region without neurogenic claudication; K21.9 Gastro-esophageal reflux disease without esophagitis; Z79.82 Long term (current) use of aspirin; Z79.899 Other long term (current) drug therapy; Z88.0 Allergy status to penicillin; Z88.5 Allergy status to narcotic agent; Z88.6 Allergy status to analgesic agent
CPT/HCPCS: Q9967

== ENCOUNTER 2017-12-25 15:11 | Emergency (ER) | payer MEDICARE, OTHER, MEDICAID | END 2017-12-25 18:02 | disposition home or self-care (01) | LOC: M ED 15:11 | DX: R07.9 Chest pain, unspecified (principal); F32.9 Major depressive disorder, single episode, unspecified; K21.9 Gastro-esophageal reflux disease without esophagitis | CPT/HCPCS: 99283 ==

== ENCOUNTER → 2017-12-31 | Outpatient (REF) | payer MEDICARE, MEDICAID | LOC: M SFHCPLAZ 14:09 | DX: M19.049 Primary osteoarthritis, unspecified hand (principal) ==

== ENCOUNTER → 2018-01-01 | Outpatient (CLI) | payer MEDICARE, MEDICAID ==
[2018-01-01 14:12] LABS: C REACTIVE PROTEIN QUANTITATIV 1.04 MG/DL (0.00-0.30)
[2018-01-01 14:12] LABS: URIC ACID 3.8 MG/DL (2.6-6.0)
[2018-01-01 14:33] LABS: ERYTHROCYTE SEDIMENTATION RATE 51 mm/hr (0-30)
[2018-01-07 15:46] LABS: ANTI DOUBLE STRAND-DNA AB <1 IU/mL (0-9); ANTINUCLEAR ANTIBODIES DIRECT Negative (Negative); HLA-B27 Negative (.)
== END ==
LOC: M LAB 12:59
DX: M19.049 Primary osteoarthritis, unspecified hand (principal); R10.84 Generalized abdominal pain; R05 Cough
CPT/HCPCS: 71046

== ENCOUNTER → 2018-01-05 | Outpatient (CLI) | payer MEDICARE, MEDICAID | LOC: M PAIN 11:15 | DX: M47.812 Spondylosis without myelopathy or radiculopathy, cervical region (principal); M47.897 Other spondylosis, lumbosacral region; F25.9 Schizoaffective disorder, unspecified; F41.9 Anxiety disorder, unspecified; K21.9 Gastro-esophageal reflux disease without esophagitis; E55.9 Vitamin D deficiency, unspecified; E78.00 Pure hypercholesterolemia, unspecified; Z79.82 Long term (current) use of aspirin; Z79.899 Other long term (current) drug therapy; Z88.0 Allergy status to penicillin; Z88.5 Allergy status to narcotic agent; Z88.6 Allergy status to analgesic agent; Z96.653 Presence of artificial knee joint, bilateral | CPT/HCPCS: G0463 ==

== ENCOUNTER 2018-01-06 09:53 | Day surgery (SDC) | payer MEDICARE ==
[2018-01-06] MEDS: NS 1,000 ML IV (10:00)
[2018-01-06] MEDS ORDERED: LIDOCAINE 2% INJ 100 MG/5 ML SDV (FOR ANES.) As Ordered (10:44)
[2018-01-06] MEDS ORDERED: PROPOFOL 200 MG/20 ML VIAL As Ordered ×2 (10:44)
[2018-01-06] MEDS ORDERED: fentaNYL 100 MCG/2 ML INJECTION (J3010) As Ordered (10:50)
== END 2018-01-06 12:10 | disposition home or self-care (01) ==
LOC: M OPP 09:53
DX: K64.0 First degree hemorrhoids (principal); R19.4 Change in bowel habit; K22.8 Other specified diseases of esophagus; K44.9 Diaphragmatic hernia without obstruction or gangrene; R12 Heartburn; E78.00 Pure hypercholesterolemia, unspecified; M54.5 Low back pain; J44.9 Chronic obstructive pulmonary disease, unspecified; Z79.82 Long term (current) use of aspirin; Z79.899 Other long term (current) drug therapy; Z88.0 Allergy status to penicillin; Z88.5 Allergy status to narcotic agent; Z88.8 Allergy status to other drugs, medicaments and biological substances
CPT/HCPCS: 45378

== ENCOUNTER 2018-01-08 09:29 | Outpatient (CLI) | payer MEDICARE ==
[2018-01-08] MEDS: IRON SUCROSE 500 MG in NS 250 ML OVER 4 HRS IV (09:46)
== END 2018-01-08 15:00 | disposition home or self-care (01) ==
LOC: M INFU 09:29
DX: D50.9 Iron deficiency anemia, unspecified (principal); E78.00 Pure hypercholesterolemia, unspecified; J44.9 Chronic obstructive pulmonary disease, unspecified; K21.9 Gastro-esophageal reflux disease without esophagitis; Z79.82 Long term (current) use of aspirin; Z79.899 Other long term (current) drug therapy; Z88.0 Allergy status to penicillin; Z88.5 Allergy status to narcotic agent; Z88.8 Allergy status to other drugs, medicaments and biological substances; Z86.79 Personal history of other diseases of the circulatory system
CPT/HCPCS: J1756

== ENCOUNTER → 2018-02-04 | Outpatient (CLI) | payer MEDICARE, MEDICAID | LOC: M PAIN 10:30 | DX: M54.2 Cervicalgia (principal); G89.29 Other chronic pain; M15.0 Primary generalized (osteo)arthritis; F25.9 Schizoaffective disorder, unspecified; F41.9 Anxiety disorder, unspecified; K21.9 Gastro-esophageal reflux disease without esophagitis; E55.9 Vitamin D deficiency, unspecified; E78.00 Pure hypercholesterolemia, unspecified; K44.9 Diaphragmatic hernia without obstruction or gangrene; Z79.82 Long term (current) use of aspirin; Z79.899 Other long term (current) drug therapy; Z88.0 Allergy status to penicillin; Z88.5 Allergy status to narcotic agent; Z88.8 Allergy status to other drugs, medicaments and biological substances; Z96.653 Presence of artificial knee joint, bilateral | CPT/HCPCS: G0463 ==

== ENCOUNTER → 2018-02-08 | Outpatient (CLI) | payer MEDICARE, MEDICAID | LOC: M WUC 15:04 | DX: S20.211A Contusion of right front wall of thorax, initial encounter (principal); X58.XXXA Exposure to other specified factors, initial encounter; Y92.9 Unspecified place or not applicable | CPT/HCPCS: 71101 ==

== ENCOUNTER → 2018-02-10 | Outpatient (CLI) | payer MEDICARE, MEDICAID | LOC: M RAD 09:46 | DX: M25.511 Pain in right shoulder (principal) | CPT/HCPCS: 73030 ==

== ENCOUNTER → 2018-02-16 | Outpatient (CLI) | payer MEDICARE, MEDICAID | LOC: M RAD 06:23 | DX: M47.812 Spondylosis without myelopathy or radiculopathy, cervical region (principal); M54.2 Cervicalgia | CPT/HCPCS: 72141 ==

== ENCOUNTER 2018-02-17 09:23 | Outpatient (RCR) | payer MEDICARE, MEDICAID | END 2018-02-19 | LOC: M PT 09:23 | DX: M47.25 Other spondylosis with radiculopathy, thoracolumbar region (principal); M47.22 Other spondylosis with radiculopathy, cervical region | CPT/HCPCS: 97110 ==

== ENCOUNTER → 2018-03-09 | Outpatient (REF) | payer OTHER, MEDICAID ==
[~2018-03-09] MED LIST changes: +/DULO30CA OR; +/ESOM40CA; +/ESOM40CA OR; +/QUET10TA OR; +/QUET25TA OR; +/WARF25TA PO; +ABIL10TA; +ABIL20TA2; +ABIL30TA4 OR; +ACET-683 PO; +ACET30TAB PO; +ACIPHEX OR; +ALBU17IN INH; +ASPI-101 PO; +ASPI81TA24 PO; +ASPIRIN PO; +ATARAX OR; +ATOM40CA; +AZIT-12 PO; +AZIT500T2 PO; -BUPIVACAINE HCL 0.25% 30 ML VIAL As Ordered; +BUSP10TA2 OR; +BUSP30TA; +CELE100C OR; +CELE40TA OR; +CLAR5CHW; +CLAR5CHW OR; +CLON0.5T OR; +CLON0.5T8 PO; +COGE1INJ; +COGE1INJ OR; +COLA100C2 OR; +COLA100C5 PO; +COUM2.5T17 PO; +CVS20TAB PO; +CYMB60CA3 PO; +CYMBALTA PO; +DITR1TAB PO; +DULO1CAP2 PO; +DULO1CAP3 PO; +EFFE150C; +EFFE150C OR; +EFFE75CA75 OR; +FERR325T; +GABAPOW41 PO; +HALO10TA4; -ISOVUE-M 300 61% 15ML VIAL (Q9967) As Ordered; +LAMI1TAB8 PO; +LAMI25TA; +LAMI25TA OR; +LAMO10TA PO; +LEVO750T13 PO; +LIDO5DIS41 TD; -LIDOCAINE 1% SDV INJ 30 ML VIAL As Ordered; +LORA-243 PO; +MECL-68 PO; +MILK12002 PO; +MONT10TA2 PO; +NAPR250T4 PO; +NEXI20CA PO; +NEXI40CA PO; +NORC1TAB4 PO; +OMEP20TA7 OR; +OMEP40CA2 PO; +PERC5TAB12 PO; +PERC7.5T12 PO; +PRIL20CA; +QUET1TAB10 PO; +QUET1TAB8 PO; +QUET1TAB9 PO; +QUET30TA OR; +RANI150T PO; +RANI1TAB38 PO; +SENN1TAB10 PO; +SENN8.6C PO; +SERO1TAB2 PO; +SERO200T OR; +SEROQUEL PO; +SIMV20TA2 PO; +SUCR1TA PO; +SUCR1TAB56 PO; +TIZA2CAP PO; +TIZA4CAP PO; +TRAM1CAP15 PO; +TRAM50TA2 OR; +TRAM50TA2 PO; +TRAZ-163 PO; +TRAZ-189 PO; +TRAZ100T OR; +TRAZ1TAB14 PO; +TRAZ300T2 PO; +TRAZ50TA; +TRAZADONE PO; +TUMS750C20 PO; +TYLE325C PO; +TYLE325T5 PO; +TYLE500T78 PO; +ULTR50TA8 PO; +VENL75TA2 OR; +VENLAFAXINE PO; +VITA2000 PO; +VITA200038 PO; +VITAMIN B 12 PO; +ZOCO20TA OR; +ZOFR4TAB14 PO; +ZYPR10TA OR; +flonase
[2018-03-09 12:17] LABS: ALBUMIN 3.4 GM/DL (3.2-5.2); ALT/SGPT 14 U/L (12-78); BILIRUBIN,TOTAL 0.2 MG/DL (0.2-1.0); BLOOD UREA NITROGEN 13 MG/DL (7-18); CALCIUM LEVEL 8.9 MG/DL (8.8-10.2); CARBON DIOXIDE LEVEL 32 MEQ/L (21-32); CHLORIDE LEVEL 103 MEQ/L (98-107); CREATININE FOR GFR 0.71 MG/DL (0.55-1.30); FERRITIN 41 NG/ML (8-252); GLOMERULAR FILTRATION RATE > 60.0 (>45); GLUCOSE, FASTING 84 MG/DL (70-100); IRON (FE) 63 UG/DL (50-170); POTASSIUM SERUM 4.2 MEQ/L (3.5-5.1); SODIUM LEVEL 140 MEQ/L (136-145); TOTAL PROTEIN 6.9 GM/DL (6.4-8.2)
[2018-03-09 12:30] LABS: HEMATOCRIT 41.3 % (36.0-47.0); HEMOGLOBIN 12.5 g/dl (12.0-15.5); MEAN CORPUSCULAR HEMOGLOBIN 26.4 pg (27.0-33.0); MEAN CORPUSCULAR HGB CONC 30.3 g/dl (32.0-36.5); MEAN CORPUSCULAR VOLUME 87.1 fl (80.0-96.0); PLATELET COUNT, AUTOMATED 317 10^3/uL (150-450); RED BLOOD COUNT 4.74 10^6/uL (4.00-5.40); WHITE BLOOD COUNT 5.7 10^3/uL (4.0-10.0)
== END ==
LOC: M SFHCPLAZ 10:45
PROVIDERS: ATTEND Nurse Practitioner Adult Health
DX: D50.9 Iron deficiency anemia, unspecified (principal); K21.9 Gastro-esophageal reflux disease without esophagitis

== ENCOUNTER 2018-03-17 09:12 | Outpatient (RCR) | payer MEDICARE, MEDICAID ==
[~2018-03-17 09:12] MED LIST changes: -ASPI-101 PO; +ASPI-225 PO; +MILK120011 PO; -MILK12002 PO
== END 2018-03-22 ==
LOC: M PT 09:12
PROVIDERS: ATTEND Physician Assistant
DX: Z47.89 Encounter for other orthopedic aftercare (principal); M50.31 Other cervical disc degeneration, high cervical region; M47.22 Other spondylosis with radiculopathy, cervical region; M47.20 Other spondylosis with radiculopathy, site unspecified; M25.511 Pain in right shoulder; M25.562 Pain in left knee; Z96.652 Presence of left artificial knee joint

== ENCOUNTER → 2018-04-02 | Outpatient (REF) | payer MEDICARE, MEDICAID ==
[2018-04-02 18:26] LABS: BLOOD UREA NITROGEN 14 MG/DL (7-18); CALCIUM LEVEL 8.8 MG/DL (8.8-10.2); CARBON DIOXIDE LEVEL 28 MEQ/L (21-32); CHLORIDE LEVEL 104 MEQ/L (98-107); CREATININE FOR GFR 0.68 MG/DL (0.55-1.30); GLOMERULAR FILTRATION RATE > 60.0 (>45); GLUCOSE, FASTING 79 MG/DL (70-100); POTASSIUM SERUM 3.7 MEQ/L (3.5-5.1); SODIUM LEVEL 140 MEQ/L (136-145)
== END ==
LOC: M SFHCPLAZ 14:35
PROVIDERS: ATTEND Family Medicine
DX: Z01.818 Encounter for other preprocedural examination (principal); M18.11 Unilateral primary osteoarthritis of first carpometacarpal joint, right hand; M65.311 Trigger thumb, right thumb; G56.01 Carpal tunnel syndrome, right upper limb
CPT/HCPCS: 36415; 80048; G0463

== ENCOUNTER → 2018-04-05 | Outpatient (CLI) | payer MEDICARE, MEDICAID ==
--- NOTE | 2018-04-06 02:24 | REP ---
Clinical: Preoperative assessment . Comparison: 01/01/2018 . Technique: PA and lateral. Findings: The mediastinum and cardiac silhouette are normal. The lung rodriguez are clear and without acute consolidation, effusion, or pneumothorax. The skeletal structures are intact and normal. Impression: 1. No acute cardiopulmonary process. Electronically Signed by Ken De León MD 04/06/2018 02:16 A
== END ==
LOC: M RAD 14:12
PROVIDERS: ATTEND Family Medicine
DX: Z01.818 Encounter for other preprocedural examination (principal)

== ENCOUNTER → 2018-04-06 | Outpatient (CLI) | payer MEDICARE, MEDICAID ==
[~2018-04-06] MED LIST changes: +BUPIVACAINE HCL 0.25% 30 ML VIAL As Ordered ONE; +ISOVUE-M 300 61% 15ML VIAL (Q9967) As Ordered ONE; +LIDOCAINE 1% SDV INJ 30 ML VIAL As Ordered ONE; +TRIAMCINOLONE ACETONIDE SUSP 40 MG/ML VIAL (J3301) As Ordered ONE; +diazePAM 5 MG TAB As Ordered ONE; +oxyCODONE 5MG TAB As Ordered ONE
--- NOTE | 2018-04-06 15:41 | REP ---
Partial cervical spine series: Two views: History: Injection procedure for pain. 9 seconds of fluoroscopy time is reported. Findings: A sequence of two last image hold fluoroscopically obtained spot radiographs of the cervical spine document various needle positions and contrast injections associated with cervical facet injection procedure. Electronically Signed by Mohinder Lee MD 04/06/2018 06:13 P
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
== END ==
LOC: M PAIN 10:45
PROVIDERS: ATTEND Anesthesiology
DX: M47.812 Spondylosis without myelopathy or radiculopathy, cervical region (principal); F25.9 Schizoaffective disorder, unspecified; F32.9 Major depressive disorder, single episode, unspecified; F41.9 Anxiety disorder, unspecified; K21.9 Gastro-esophageal reflux disease without esophagitis; M19.90 Unspecified osteoarthritis, unspecified site; E55.9 Vitamin D deficiency, unspecified; E78.00 Pure hypercholesterolemia, unspecified; K44.9 Diaphragmatic hernia without obstruction or gangrene; I25.2 Old myocardial infarction; Z96.653 Presence of artificial knee joint, bilateral; Z98.41 Cataract extraction status, right eye; Z88.0 Allergy status to penicillin; Z88.5 Allergy status to narcotic agent; Z88.6 Allergy status to analgesic agent; Z79.82 Long term (current) use of aspirin; Z79.899 Other long term (current) drug therapy
CPT/HCPCS: 64490; 64491; J3301; Q9967

== ENCOUNTER → 2018-04-27 | Outpatient (CLI) | payer MEDICARE, MEDICAID ==
[~2018-04-27] MED LIST changes: -BUPIVACAINE HCL 0.25% 30 ML VIAL As Ordered ONE; -ISOVUE-M 300 61% 15ML VIAL (Q9967) As Ordered ONE; -LIDOCAINE 1% SDV INJ 30 ML VIAL As Ordered ONE; -TRIAMCINOLONE ACETONIDE SUSP 40 MG/ML VIAL (J3301) As Ordered ONE; -diazePAM 5 MG TAB As Ordered ONE; -oxyCODONE 5MG TAB As Ordered ONE
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
== END ==
LOC: M PAIN 14:45
PROVIDERS: ATTEND Nurse Practitioner Family
DX: M79.18 Myalgia, other site (principal); M47.12 Other spondylosis with myelopathy, cervical region; F25.9 Schizoaffective disorder, unspecified; F32.9 Major depressive disorder, single episode, unspecified; F41.9 Anxiety disorder, unspecified; K21.9 Gastro-esophageal reflux disease without esophagitis; M19.90 Unspecified osteoarthritis, unspecified site; E55.9 Vitamin D deficiency, unspecified; E78.00 Pure hypercholesterolemia, unspecified; K44.9 Diaphragmatic hernia without obstruction or gangrene; I25.2 Old myocardial infarction; M51.26 Other intervertebral disc displacement, lumbar region; Z96.653 Presence of artificial knee joint, bilateral; Z98.41 Cataract extraction status, right eye; Z98.42 Cataract extraction status, left eye; Z79.82 Long term (current) use of aspirin; Z79.899 Other long term (current) drug therapy; Z88.0 Allergy status to penicillin; Z88.5 Allergy status to narcotic agent; Z88.6 Allergy status to analgesic agent

== ENCOUNTER 2018-05-14 09:03 | Outpatient (RCR) | payer MEDICARE, MEDICAID | END 2018-05-20 | LOC: M PT 09:03 | PROVIDERS: ATTEND Nurse Practitioner Family | DX: Z47.89 Encounter for other orthopedic aftercare (principal); M79.18 Myalgia, other site; M47.12 Other spondylosis with myelopathy, cervical region ==

== ENCOUNTER → 2018-05-20 | Outpatient (CLI) | payer MEDICARE, MEDICAID ==
[~2018-05-20] MED LIST changes: +BUPIVACAINE HCL 0.25% 10 ML VIAL As Ordered ONE; +BUPIVACAINE HCL 0.25% 30 ML VIAL As Ordered ONE; +TRIAMCINOLONE ACETONIDE SUSP 40 MG/ML VIAL (J3301) As Ordered ONE; +diazePAM 5 MG TAB As Ordered ONE; +oxyCODONE 5MG TAB As Ordered ONE
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
== END ==
LOC: M PAIN 14:15
PROVIDERS: ATTEND Anesthesiology
DX: M79.18 Myalgia, other site (principal); M54.2 Cervicalgia; M19.90 Unspecified osteoarthritis, unspecified site; E55.9 Vitamin D deficiency, unspecified; E78.00 Pure hypercholesterolemia, unspecified; I25.2 Old myocardial infarction; K21.9 Gastro-esophageal reflux disease without esophagitis; Z79.82 Long term (current) use of aspirin; Z79.891 Long term (current) use of opiate analgesic; Z79.899 Other long term (current) drug therapy; Z88.0 Allergy status to penicillin; Z88.5 Allergy status to narcotic agent; Z88.6 Allergy status to analgesic agent; Z86.59 Personal history of other mental and behavioral disorders; Z96.653 Presence of artificial knee joint, bilateral
CPT/HCPCS: 20552; J3301

== ENCOUNTER → 2018-06-03 | Outpatient (CLI) | payer MEDICARE, MEDICAID ==
[~2018-06-03] MED LIST changes: -BUPIVACAINE HCL 0.25% 10 ML VIAL As Ordered ONE; -BUPIVACAINE HCL 0.25% 30 ML VIAL As Ordered ONE; -TRIAMCINOLONE ACETONIDE SUSP 40 MG/ML VIAL (J3301) As Ordered ONE; -diazePAM 5 MG TAB As Ordered ONE; -oxyCODONE 5MG TAB As Ordered ONE
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
== END ==
LOC: M PAIN 11:45
PROVIDERS: ATTEND Nurse Practitioner Family
DX: M79.18 Myalgia, other site (principal); F25.9 Schizoaffective disorder, unspecified; F32.9 Major depressive disorder, single episode, unspecified; F41.9 Anxiety disorder, unspecified; K21.9 Gastro-esophageal reflux disease without esophagitis; E55.9 Vitamin D deficiency, unspecified; E78.00 Pure hypercholesterolemia, unspecified; K44.9 Diaphragmatic hernia without obstruction or gangrene; I25.2 Old myocardial infarction; M51.26 Other intervertebral disc displacement, lumbar region; Z96.653 Presence of artificial knee joint, bilateral; Z98.41 Cataract extraction status, right eye; Z88.0 Allergy status to penicillin; Z88.5 Allergy status to narcotic agent; Z88.6 Allergy status to analgesic agent; Z79.82 Long term (current) use of aspirin; Z79.891 Long term (current) use of opiate analgesic

== ENCOUNTER 2018-06-10 11:12 | Outpatient (RCR) | payer MEDICARE, MEDICAID | END 2018-06-20 | LOC: M PT 11:12 | PROVIDERS: ATTEND Nurse Practitioner Family | DX: Z47.89 Encounter for other orthopedic aftercare (principal); M79.18 Myalgia, other site; M47.12 Other spondylosis with myelopathy, cervical region ==

== ENCOUNTER → 2018-06-18 | Outpatient (CLI) | payer MEDICARE, MEDICAID ==
--- NOTE | 2018-06-18 12:43 | REP ---
LEFT RIB SERIES: Four views of the left ribs are performed. No fracture or bone lesion is seen. An accompanying view of the chest demonstrates mild cardiomegaly with no acute infiltrate or pleural effusion. Calcified left hilar lymph node is present. IMPRESSION: No evidence of left rib fracture. Electronically Signed by Siddharth Pereira MD 06/18/2018 03:37 P
--- NOTE | 2018-06-18 12:44 | REP ---
LEFT SHOULDER, THREE VIEWS: Three views of the left shoulder are performed. No fracture or dislocation is seen. There is narrowing and spurring at the glenohumeral joint. There appears to be a subchondral cystic change in the lateral humeral head. IMPRESSION: No acute fracture or dislocation. Electronically Signed by Siddharth Pereira MD 06/18/2018 03:37 P
--- NOTE | 2018-06-18 12:47 | REP ---
LEFT SCAPULA, TWO VIEWS: Two views of the left scapula performed and demonstrate no fracture, dislocation or intrinsic bone disease. IMPRESSION: No fracture or dislocation. Electronically Signed by Siddharth Pereira MD 06/18/2018 03:37 P
== END ==
LOC: M LRY 11:13
PROVIDERS: ATTEND Nurse Practitioner Family
DX: S49.92XA Unspecified injury of left shoulder and upper arm, initial encounter (principal); W10.8XXA Fall (on) (from) other stairs and steps, initial encounter; Y92.9 Unspecified place or not applicable

== ENCOUNTER 2018-07-04 09:54 | Emergency (ER) | payer MEDICARE, MEDICAID ==
[~2018-07-04] VITALS: Ht 147.3 cm; Wt 63.6 kg
[~2018-07-04 09:54] MED LIST changes: -/DULO30CA OR; -/ESOM40CA; -/ESOM40CA OR; -/QUET10TA OR; -/QUET25TA OR; -/WARF25TA PO; +ACET-716 PO; -ACET30TAB PO; +COUM1TAB18 PO; -CVS20TAB PO; +CYMB1CAP5 OR; +LAMO100T80 PO; -LAMO10TA PO; +NEXI1CAP3; +NEXI1CAP3 OR; -NORC1TAB4 PO; +NORC1TAB7 PO; +OMEP20TA9 PO; +SERO1TAB OR; +SERO1TAB3 OR
[2018-07-04] MEDS ORDERED: IBUP80TA (10:22)
[2018-07-04] MEDS: SILVER NITRATE APPLICATOR TOP ONE (10:57)
[2018-07-04 11:35] VITALS: BP 113/71
== END 2018-07-04 11:37 | disposition home or self-care (01) ==
LOC: M ED 09:54
DX: R04.0 Epistaxis (principal); J44.9 Chronic obstructive pulmonary disease, unspecified; M19.90 Unspecified osteoarthritis, unspecified site; K21.9 Gastro-esophageal reflux disease without esophagitis; Z79.899 Other long term (current) drug therapy; Z88.0 Allergy status to penicillin; Z88.5 Allergy status to narcotic agent; Z88.8 Allergy status to other drugs, medicaments and biological substances

== ENCOUNTER → 2018-07-22 | Outpatient (CLI) | payer MEDICARE, MEDICAID ==
[~2018-07-22] MED LIST changes: +IBUP80TA
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
== END ==
LOC: M PAIN 09:45
PROVIDERS: ATTEND Nurse Practitioner Family
DX: M79.18 Myalgia, other site (principal); Z86.59 Personal history of other mental and behavioral disorders; K21.9 Gastro-esophageal reflux disease without esophagitis; E55.9 Vitamin D deficiency, unspecified; E78.00 Pure hypercholesterolemia, unspecified; Z96.653 Presence of artificial knee joint, bilateral; Z88.0 Allergy status to penicillin; Z88.5 Allergy status to narcotic agent; Z88.6 Allergy status to analgesic agent; Z79.82 Long term (current) use of aspirin; Z79.891 Long term (current) use of opiate analgesic; Z79.899 Other long term (current) drug therapy

== ENCOUNTER → 2018-08-19 | Outpatient (CLI) | payer MEDICARE, MEDICAID ==
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
== END ==
LOC: M PAIN 13:30
PROVIDERS: ATTEND Nurse Practitioner Family
DX: M46.1 Sacroiliitis, not elsewhere classified (principal); G89.29 Other chronic pain; Z86.59 Personal history of other mental and behavioral disorders; K21.9 Gastro-esophageal reflux disease without esophagitis; M19.90 Unspecified osteoarthritis, unspecified site; E55.9 Vitamin D deficiency, unspecified; E78.5 Hyperlipidemia, unspecified; Z96.653 Presence of artificial knee joint, bilateral; Z88.0 Allergy status to penicillin; Z88.5 Allergy status to narcotic agent; Z88.6 Allergy status to analgesic agent; Z79.82 Long term (current) use of aspirin; Z79.891 Long term (current) use of opiate analgesic; Z79.899 Other long term (current) drug therapy

== ENCOUNTER → 2018-08-31 | Outpatient (CLI) | payer MEDICARE, MEDICAID ==
[~2018-08-31] MED LIST changes: +BUPIVACAINE HCL 0.25% 10 ML VIAL As Ordered ONE; +BUPIVACAINE HCL 0.25% 30 ML VIAL As Ordered ONE; +TRIAMCINOLONE ACETONIDE SUSP 40 MG/ML VIAL (J3301) As Ordered ONE; +diazePAM 5 MG TAB As Ordered ONE; +oxyCODONE 5MG TAB As Ordered ONE
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
== END ==
LOC: M PAIN 11:15
PROVIDERS: ATTEND Anesthesiology
DX: M79.18 Myalgia, other site (principal); F25.9 Schizoaffective disorder, unspecified; F32.9 Major depressive disorder, single episode, unspecified; F41.9 Anxiety disorder, unspecified; K21.9 Gastro-esophageal reflux disease without esophagitis; M19.90 Unspecified osteoarthritis, unspecified site; E55.9 Vitamin D deficiency, unspecified; E78.00 Pure hypercholesterolemia, unspecified; K44.9 Diaphragmatic hernia without obstruction or gangrene; I25.2 Old myocardial infarction; M48.061 Spinal stenosis, lumbar region without neurogenic claudication; M51.26 Other intervertebral disc displacement, lumbar region; Z98.41 Cataract extraction status, right eye; Z98.42 Cataract extraction status, left eye; Z88.0 Allergy status to penicillin; Z88.5 Allergy status to narcotic agent; Z88.6 Allergy status to analgesic agent; Z79.82 Long term (current) use of aspirin; Z79.891 Long term (current) use of opiate analgesic; Z79.899 Other long term (current) drug therapy
CPT/HCPCS: 20552; J3301

== ENCOUNTER → 2018-10-20 | Outpatient (CLI) | payer MEDICARE, MEDICAID ==
[~2018-10-20] MED LIST changes: -BUPIVACAINE HCL 0.25% 10 ML VIAL As Ordered ONE; -DULO1CAP2 PO; -DULO1CAP3 PO; +DULO1CAP5 PO; +DULO1CAP6 PO; +ISOVUE-M 200 41% 20ML VIAL (Q9966) As Ordered ONE; +LIDOCAINE 1% SDV INJ 30 ML VIAL As Ordered ONE; -QUET1TAB9 PO; +QUET200T2 PO
--- NOTE | 2018-10-20 13:53 | REP ---
Right SI joint series: Two views. History: Right SI joint block for pain. 13 seconds of fluoroscopy time is reported. Findings: A sequence of two last image hold fluoroscopically obtained spot radiographs of the right SI joint document needle position and contrast associated with right SI joint injection procedure. Electronically Signed by Mohinder Lee MD 10/20/2018 01:44 P
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
== END ==
LOC: M PAIN 11:45
PROVIDERS: ATTEND Anesthesiology
DX: M46.1 Sacroiliitis, not elsewhere classified (principal); Z79.82 Long term (current) use of aspirin; Z79.891 Long term (current) use of opiate analgesic; Z79.899 Other long term (current) drug therapy; Z88.0 Allergy status to penicillin; Z88.5 Allergy status to narcotic agent; Z88.8 Allergy status to other drugs, medicaments and biological substances
CPT/HCPCS: G0260; J3301; Q9966

== ENCOUNTER → 2018-11-08 | Outpatient (CLI) | payer MEDICARE, MEDICAID ==
[~2018-11-08] MED LIST changes: -BUPIVACAINE HCL 0.25% 30 ML VIAL As Ordered ONE; -ISOVUE-M 200 41% 20ML VIAL (Q9966) As Ordered ONE; -LIDOCAINE 1% SDV INJ 30 ML VIAL As Ordered ONE; -TRIAMCINOLONE ACETONIDE SUSP 40 MG/ML VIAL (J3301) As Ordered ONE; -diazePAM 5 MG TAB As Ordered ONE; -oxyCODONE 5MG TAB As Ordered ONE
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
== END ==
LOC: M PAIN 13:30
PROVIDERS: ATTEND Nurse Practitioner Family
DX: M46.1 Sacroiliitis, not elsewhere classified (principal); Z86.59 Personal history of other mental and behavioral disorders; K21.9 Gastro-esophageal reflux disease without esophagitis; E55.9 Vitamin D deficiency, unspecified; E78.00 Pure hypercholesterolemia, unspecified; Z96.653 Presence of artificial knee joint, bilateral; Z88.0 Allergy status to penicillin; Z88.5 Allergy status to narcotic agent; Z88.6 Allergy status to analgesic agent; Z79.82 Long term (current) use of aspirin; Z79.899 Other long term (current) drug therapy

== ENCOUNTER 2018-11-17 13:15 | Outpatient (RCR) | payer MEDICARE, MEDICAID | END 2018-11-20 | LOC: M PT 13:15 | PROVIDERS: ATTEND Nurse Practitioner Family | DX: Z51.89 Encounter for other specified aftercare (principal); M46.1 Sacroiliitis, not elsewhere classified ==

== ENCOUNTER 2018-12-17 10:07 | Outpatient (RCR) | payer MEDICARE, MEDICAID | END 2018-12-20 | disposition home or self-care (01) | LOC: M PT 10:07 | PROVIDERS: ATTEND Nurse Practitioner Family | DX: Z51.89 Encounter for other specified aftercare (principal); M46.1 Sacroiliitis, not elsewhere classified ==

== ENCOUNTER → 2018-12-27 | Outpatient (CLI) | payer MEDICARE ==
--- NOTE | 2018-12-28 18:20 | REP ---
MRI LEFT SHOULDER: TECHNIQUE: Axial T2 fat sat, coronal oblique T1, T2 fat sat, post arthrogram axial T1 fat sat, proton density, coronal oblique T1 fat sat, T2 sat, sagittal oblique T2 fat sat, ABER T1 fat sat. The study is significantly limited due to patient motion. COMPARISON: MRI 01/03/2015. Since the prior study, the patient has had rotator cuff repair and biceps tenotomy 06/26/2015. There are complete full thickness tears of the supraspinatus and infraspinatus tendons. Moderate tendinopathy is noted of the subscapularis. Teres minor is intact. There are mild hypertrophic changes of the acromioclavicular joint. Acromion is type 3. There is significantly decreased space between the humeral head and acromion. There is marrow edema in the acromion. I do not see abnormal signal in the deltoid. There does appear to be a tear of the posterior labrum. The superior labrum is diffusely truncated and there is subchondral marrow edema in the superior aspect of the bony glenoid. There is moderate chondromalacia at the glenohumeral joint. Prior anchor tracts are seen in the anterior humeral head. Moderate joint fluid is seen extending into the subacromial subdeltoid region. Biceps tendon is within the bicipital groove with no tenosynovitis. IMPRESSION: Complete full thickness tears of the supraspinatus and infraspinatus tendons. Moderate tendinopathy of the subscapularis. There are mild hypertrophic changes at the acromioclavicular joint. Acromion is type 3 and there is marrow edema in the acromion. Biceps tendon seen in the bicipital groove, status post biceps tenodesis. No tenosynovitis. There appears to be a posterior labral tear. Superior labrum is diffusely truncated. There is moderate chondromalacia at the glenohumeral joint with subchondral marrow edema in the superior bony glenoid. Moderate joint effusion. Please note the study is significantly limited due to patient motion. Electronically Signed by Siddharth Pereira MD 12/29/2018 06:20 P
== END ==
LOC: M RAD 06:55
PROVIDERS: ATTEND Orthopaedic Surgery
DX: M19.012 Primary osteoarthritis, left shoulder (principal)

== ENCOUNTER → 2019-01-07 | Outpatient (CLI) | payer MEDICARE, MEDICAID ==
[~2019-01-07] MED LIST changes: -AZIT500T2 PO; +AZIT500T5 PO; -OMEP40CA2 PO; +OMEP40CA97 PO
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
== END ==
LOC: M PAIN 10:45
PROVIDERS: ATTEND Nurse Practitioner Family
DX: M46.1 Sacroiliitis, not elsewhere classified (principal); G89.29 Other chronic pain; Z86.59 Personal history of other mental and behavioral disorders; K21.9 Gastro-esophageal reflux disease without esophagitis; E55.9 Vitamin D deficiency, unspecified; E78.00 Pure hypercholesterolemia, unspecified; I25.2 Old myocardial infarction; Z96.653 Presence of artificial knee joint, bilateral; Z88.0 Allergy status to penicillin; Z88.5 Allergy status to narcotic agent; Z88.6 Allergy status to analgesic agent; Z79.82 Long term (current) use of aspirin; Z79.899 Other long term (current) drug therapy

== ENCOUNTER 2019-01-10 11:15 | Outpatient (RCR) | payer MEDICARE, MEDICAID | END 2019-01-20 | LOC: M PT 11:15 | PROVIDERS: ATTEND Nurse Practitioner Family | DX: M54.31 Sciatica, right side (principal) ==

== ENCOUNTER → 2019-02-16 | Outpatient (CLI) | payer MEDICARE, MEDICAID ==
[~2019-02-16] MED LIST changes: +BUPIVACAINE HCL 0.25% 30 ML VIAL As Ordered ONE; +CLON0.5T2 PO; -CLON0.5T8 PO; +ISOVUE-M 300 61% 15ML VIAL (Q9967) As Ordered ONE; +LIDOCAINE 1% SDV INJ 30 ML VIAL As Ordered ONE; -SIMV20TA2 PO; +SIMV20TA22 PO; +TRIAMCINOLONE ACETONIDE SUSP 40 MG/ML VIAL (J3301) As Ordered ONE; +diazePAM 5 MG TAB As Ordered ONE; +oxyCODONE 5MG TAB As Ordered ONE
--- NOTE | 2019-02-16 12:45 | REP ---
C-ARM VIEWS RIGHT SACROILIAC JOINT: CLINICAL HISTORY: Pain. Three C-arm views right sacroiliac joint performed during injection performed by Dr. Conley. A needle is seen overlying the right sacroiliac joint and small amount of contrast is injected. 27 seconds of fluoroscopy time utilized. Electronically Signed by Siddharth Pereira MD 02/16/2019 12:49 P
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
== END ==
LOC: M PAIN 10:30
PROVIDERS: ATTEND Anesthesiology
DX: M46.1 Sacroiliitis, not elsewhere classified (principal); Z86.59 Personal history of other mental and behavioral disorders; K21.9 Gastro-esophageal reflux disease without esophagitis; E55.9 Vitamin D deficiency, unspecified; Z96.653 Presence of artificial knee joint, bilateral; Z88.0 Allergy status to penicillin; Z88.5 Allergy status to narcotic agent; Z88.6 Allergy status to analgesic agent; Z79.82 Long term (current) use of aspirin; Z79.899 Other long term (current) drug therapy
CPT/HCPCS: G0260; J3301; Q9967

== ENCOUNTER → 2019-03-07 | Outpatient (CLI) | payer MEDICARE, MEDICAID ==
[~2019-03-07] MED LIST changes: -BUPIVACAINE HCL 0.25% 30 ML VIAL As Ordered ONE; -ISOVUE-M 300 61% 15ML VIAL (Q9967) As Ordered ONE; -LIDOCAINE 1% SDV INJ 30 ML VIAL As Ordered ONE; -TRIAMCINOLONE ACETONIDE SUSP 40 MG/ML VIAL (J3301) As Ordered ONE; -diazePAM 5 MG TAB As Ordered ONE; -oxyCODONE 5MG TAB As Ordered ONE
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
== END ==
LOC: M PAIN 13:15
PROVIDERS: ATTEND Nurse Practitioner Family
DX: M46.1 Sacroiliitis, not elsewhere classified (principal); Z86.59 Personal history of other mental and behavioral disorders; K21.9 Gastro-esophageal reflux disease without esophagitis; Z96.653 Presence of artificial knee joint, bilateral; Z88.0 Allergy status to penicillin; Z88.5 Allergy status to narcotic agent; Z88.6 Allergy status to analgesic agent; Z79.82 Long term (current) use of aspirin; Z79.899 Other long term (current) drug therapy

== ENCOUNTER → 2019-03-11 | Outpatient (REF) | payer MEDICARE, MEDICAID ==
[~2019-03-11] MED LIST changes: -ASPI-225 PO; +ASPI81TA78 PO; -MECL-68 PO; +MECL1TAB31 PO; -TRAZ-163 PO; +TRAZ-257 PO
[2019-03-11 10:18] LABS: HEMATOCRIT 41.2 % (36.0-47.0); HEMOGLOBIN 12.7 g/dl (12.0-15.5); MEAN CORPUSCULAR HEMOGLOBIN 27.8 pg (27.0-33.0); MEAN CORPUSCULAR HGB CONC 30.8 g/dl (32.0-36.5); MEAN CORPUSCULAR VOLUME 90.2 fl (80.0-96.0); PLATELET COUNT, AUTOMATED 312 10^3/uL (150-450); RED BLOOD COUNT 4.57 10^6/uL (4.00-5.40); WHITE BLOOD COUNT 4.6 10^3/uL (4.0-10.0)
[2019-03-11 10:46] LABS: ALBUMIN 3.2 GM/DL (3.2-5.2); ALT/SGPT 16 U/L (12-78); BILIRUBIN,TOTAL 0.3 MG/DL (0.2-1.0); BLOOD UREA NITROGEN 15 MG/DL (7-18); CALCIUM LEVEL 8.8 MG/DL (8.8-10.2); CARBON DIOXIDE LEVEL 28 MEQ/L (21-32); CHLORIDE LEVEL 107 MEQ/L (98-107); CHOLESTEROL LEVEL 226 MG/DL (<200); CHOLESTEROL RISK RATIO 2.825 (<5); CREATININE FOR GFR 0.71 MG/DL (0.55-1.30); GLOMERULAR FILTRATION RATE > 60.0 (>45); GLUCOSE, FASTING 92 MG/DL (70-100); HDL CHOLESTEROL 80 MG/DL (>40); LDL CHOLESTEROL 133 MG/DL (<100); NON-HDL-C 146 MG/DL; POTASSIUM SERUM 4.4 MEQ/L (3.5-5.1); SODIUM LEVEL 141 MEQ/L (136-145); TOTAL PROTEIN 6.9 GM/DL (6.4-8.2); TRIGLYCERIDES LEVEL 63 MG/DL (<150)
== END ==
LOC: M SFHCPLAZ 08:48
PROVIDERS: ATTEND Internal Medicine
DX: Z01.818 Encounter for other preprocedural examination (principal); K21.9 Gastro-esophageal reflux disease without esophagitis; E78.00 Pure hypercholesterolemia, unspecified
CPT/HCPCS: 36415; 80053; 80061; 85027; G0463

== ENCOUNTER → 2019-04-25 | Outpatient (CLI) | payer MEDICARE, MEDICAID ==
[~2019-04-25] MED LIST changes: -MONT10TA2 PO; +MONT10TA4 PO; +QUET100T2 PO; -QUET1TAB8 PO
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
== END ==
LOC: M PAIN 10:00
PROVIDERS: ATTEND Nurse Practitioner Family
DX: M79.18 Myalgia, other site (principal); K21.9 Gastro-esophageal reflux disease without esophagitis; E78.5 Hyperlipidemia, unspecified; E55.9 Vitamin D deficiency, unspecified; Z79.82 Long term (current) use of aspirin; Z79.891 Long term (current) use of opiate analgesic; Z79.899 Other long term (current) drug therapy; Z88.5 Allergy status to narcotic agent; Z88.0 Allergy status to penicillin; Z88.6 Allergy status to analgesic agent

== ENCOUNTER 2019-05-17 12:15 | Outpatient (RCR) | payer MEDICARE, MEDICAID | END 2019-05-21 | LOC: M PT 12:15 | PROVIDERS: ATTEND Orthopaedic Surgery | DX: Z96.612 Presence of left artificial shoulder joint (principal) ==

== ENCOUNTER → 2019-05-30 | Outpatient (CLI) | payer MEDICARE, MEDICAID ==
[~2019-05-30] MED LIST changes: +BUPIVACAINE HCL 0.25% 30 ML VIAL As Ordered ONE; +NORCO, ANEXSIA 5/325MG TABLET (HYDROcodone/ACETAMINOPHEN) As Ordered ONE; +TRIAMCINOLONE ACETONIDE SUSP 40 MG/ML VIAL (J3301) As Ordered ONE
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
== END ==
LOC: M PAIN 08:45
PROVIDERS: ATTEND Anesthesiology
DX: M79.18 Myalgia, other site (principal); Z86.59 Personal history of other mental and behavioral disorders; K21.9 Gastro-esophageal reflux disease without esophagitis; E55.9 Vitamin D deficiency, unspecified; I25.2 Old myocardial infarction; Z96.653 Presence of artificial knee joint, bilateral; Z96.612 Presence of left artificial shoulder joint; Z88.0 Allergy status to penicillin; Z88.5 Allergy status to narcotic agent; Z88.6 Allergy status to analgesic agent; Z79.82 Long term (current) use of aspirin; Z79.899 Other long term (current) drug therapy
CPT/HCPCS: 20552; J3301

== ENCOUNTER 2019-05-31 13:43 | Outpatient (RCR) | payer MEDICARE, MEDICAID ==
[~2019-05-31 13:43] MED LIST changes: -BUPIVACAINE HCL 0.25% 30 ML VIAL As Ordered ONE; -NORCO, ANEXSIA 5/325MG TABLET (HYDROcodone/ACETAMINOPHEN) As Ordered ONE; -TRIAMCINOLONE ACETONIDE SUSP 40 MG/ML VIAL (J3301) As Ordered ONE
== END 2019-06-21 ==
LOC: M PT 13:43
PROVIDERS: ATTEND Orthopaedic Surgery
DX: Z96.612 Presence of left artificial shoulder joint (principal)

== ENCOUNTER → 2019-06-14 | Outpatient (CLI) | payer MEDICARE, MEDICAID ==
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
== END ==
LOC: M PAIN 09:45
PROVIDERS: ATTEND Nurse Practitioner Family
DX: M79.18 Myalgia, other site (principal); Z79.82 Long term (current) use of aspirin; Z79.891 Long term (current) use of opiate analgesic; Z79.899 Other long term (current) drug therapy; Z88.0 Allergy status to penicillin; Z88.5 Allergy status to narcotic agent; Z88.6 Allergy status to analgesic agent

== ENCOUNTER → 2019-07-21 | Outpatient (RCR) | payer MEDICARE, MEDICAID | LOC: M PT 06-29 12:28 | PROVIDERS: ATTEND Orthopaedic Surgery | DX: Z96.612 Presence of left artificial shoulder joint (principal) ==

== ENCOUNTER 2019-08-18 09:42 | Outpatient (RCR) | payer MEDICARE, MEDICAID | END 2019-08-21 | LOC: M PT 09:42 | PROVIDERS: ATTEND Orthopaedic Surgery | DX: Z47.1 Aftercare following joint replacement surgery (principal); Z96.612 Presence of left artificial shoulder joint ==

== ENCOUNTER 2019-08-25 10:00 | Outpatient (RCR) | payer MEDICARE, MEDICAID | END 2019-09-20 | LOC: M PT 10:00 | PROVIDERS: ATTEND Orthopaedic Surgery | DX: Z96.612 Presence of left artificial shoulder joint (principal) ==

== ENCOUNTER → 2019-08-25 | Outpatient (CLI) | payer MEDICARE, MEDICAID ==
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
== END ==
LOC: M PAIN 10:45
PROVIDERS: ATTEND Nurse Practitioner Family
DX: M79.18 Myalgia, other site (principal)

== ENCOUNTER → 2019-09-06 | Outpatient (REF) | payer MEDICARE, MEDICAID ==
[2019-09-06 18:04] LABS: ALBUMIN 3.2 GM/DL (3.2-5.2); ALT/SGPT 15 U/L (12-78); BILIRUBIN,TOTAL 0.2 MG/DL (0.2-1.0); BLOOD UREA NITROGEN 16 MG/DL (7-18); CALCIUM LEVEL 8.7 MG/DL (8.8-10.2); CARBON DIOXIDE LEVEL 29 MEQ/L (21-32); CHLORIDE LEVEL 107 MEQ/L (98-107); CREATININE FOR GFR 0.68 MG/DL (0.55-1.30); GLOMERULAR FILTRATION RATE > 60.0 (>45); GLUCOSE, FASTING 77 MG/DL (70-100); HEMATOCRIT 39.1 % (36.0-47.0); MEAN CORPUSCULAR HEMOGLOBIN 27.3 pg (27.0-33.0); MEAN CORPUSCULAR HGB CONC 30.7 g/dl (32.0-36.5); MEAN CORPUSCULAR VOLUME 88.9 fl (80.0-96.0); PLATELET COUNT, AUTOMATED 286 10^3/uL (150-450); SODIUM LEVEL 142 MEQ/L (136-145); TOTAL PROTEIN 6.7 GM/DL (6.4-8.2); WHITE BLOOD COUNT 5.1 10^3/uL (4.0-10.0)
== END ==
LOC: M SFHCPLAZ 14:19
PROVIDERS: ATTEND Family Medicine
DX: D50.9 Iron deficiency anemia, unspecified (principal); E78.2 Mixed hyperlipidemia
CPT/HCPCS: 36415; 80053; 85027; G0463

== ENCOUNTER → 2019-09-09 | Outpatient (CLI) | payer MEDICARE, MEDICAID ==
[~2019-09-09] MED LIST changes: +MONT10TA10 PO; -MONT10TA4 PO; -QUET1TAB10 PO; +QUET300T2 PO
== END ==
LOC: M LABSMTC 09:59
PROVIDERS: ATTEND Anesthesiology
DX: Z11.59 Encounter for screening for other viral diseases (principal); Z03.818 Encounter for observation for suspected exposure to other biological agents ruled out

== ENCOUNTER → 2019-09-12 | Outpatient (CLI) | payer MEDICARE, MEDICAID ==
[~2019-09-12] MED LIST changes: +BUPIVACAINE HCL 0.25% 10ML VIAL As Ordered ONE; +BUPIVACAINE HCL 0.25% 30ML VIAL As Ordered ONE; -MONT10TA10 PO; +MONT10TA4 PO; +NORCO, ANEXSIA 5/325MG TABLET (HYDROcodone/ACETAMINOPHEN) As Ordered ONE; +QUET1TAB10 PO; -QUET300T2 PO; +TRIAMCINOLONE ACETONIDE SUSP 40 MG/ML VIAL (J3301) As Ordered ONE
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
== END ==
LOC: M PAIN 08:30
PROVIDERS: ATTEND Anesthesiology
DX: M79.18 Myalgia, other site (principal)
CPT/HCPCS: 20552; J3301

== ENCOUNTER → 2019-09-14 | Outpatient (CLI) | payer MEDICAID, MEDICARE ==
[~2019-09-14] MED LIST changes: -BUPIVACAINE HCL 0.25% 10ML VIAL As Ordered ONE; -BUPIVACAINE HCL 0.25% 30ML VIAL As Ordered ONE; -NORCO, ANEXSIA 5/325MG TABLET (HYDROcodone/ACETAMINOPHEN) As Ordered ONE; -TRIAMCINOLONE ACETONIDE SUSP 40 MG/ML VIAL (J3301) As Ordered ONE
--- NOTE | 2019-09-14 13:04 | REP ---
RIGHT UPPER QUADRANT SONOGRAPHY: HISTORY: Liver cyst. Comparison CT study is from January 02, 2016. FINDINGS: Scanning through right upper quadrant of the abdomen demonstrates a normal sized thin-walled gallbladder without evidence of stone or polyp. Common bile duct is normal measuring 0.3 cm in greatest diameter. Limited views of the pancreas show no abnormality. There is no evidence of ascites or right renal abnormality. The right kidney measures 9.9 x 4.2 x 4.2 cm. There is a cyst in the liver left lobe measuring 2.6 x 2.5 x 2.0 cm. This measured 1.7 cm in greatest diameter by CT study from January 02, 2016. This measures 2.2 cm in greatest diameter on CT study from December 21, 2017. IMPRESSION: 2.6 cm left lobe hepatic cyst. Otherwise negative.
== END ==
LOC: M WHC 09:23
PROVIDERS: ATTEND Family Medicine
DX: K76.89 Other specified diseases of liver (principal)

== ENCOUNTER → 2019-10-10 | Outpatient (CLI) | payer MEDICARE, MEDICAID ==
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
== END ==
LOC: M PAIN 10:15
PROVIDERS: ATTEND Nurse Practitioner Family
DX: M79.18 Myalgia, other site (principal)

== ENCOUNTER → 2019-10-26 | Outpatient (POV) | payer MEDICARE, MEDICAID ==
[~2019-10-26] MED LIST changes: +BUPIVACAINE HCL 0.25% 10ML VIAL As Ordered ONE; +BUPIVACAINE HCL 0.25% 10ML VIAL ONE; +BUPIVACAINE HCL 0.25% 30ML VIAL As Ordered ONE; +BUPIVACAINE HCL 0.25% 30ML VIAL ONE; +TRIAMCINOLONE ACETONIDE SUSP 40 MG/ML VIAL (J3301) As Ordered ONE; +TRIAMCINOLONE ACETONIDE SUSP 40 MG/ML VIAL (J3301) ONE
== END ==
LOC: M PAIN 09:00
PROVIDERS: ATTEND Anesthesiology
DX: M79.18 Myalgia, other site (principal)

== ENCOUNTER → 2019-11-16 | Outpatient (CLI) | payer MEDICARE, MEDICAID ==
[~2019-11-16] MED LIST changes: -BUPIVACAINE HCL 0.25% 10ML VIAL As Ordered ONE; -BUPIVACAINE HCL 0.25% 10ML VIAL ONE; -BUPIVACAINE HCL 0.25% 30ML VIAL As Ordered ONE; -BUPIVACAINE HCL 0.25% 30ML VIAL ONE; -TRIAMCINOLONE ACETONIDE SUSP 40 MG/ML VIAL (J3301) As Ordered ONE; -TRIAMCINOLONE ACETONIDE SUSP 40 MG/ML VIAL (J3301) ONE
[2019-11-16 16:06] LABS: HEMATOCRIT 40.1 % (36.0-47.0); HEMOGLOBIN 12.3 g/dl (12.0-15.5); MEAN CORPUSCULAR HEMOGLOBIN 27.4 pg (27.0-33.0); MEAN CORPUSCULAR HGB CONC 30.7 g/dl (32.0-36.5); MEAN CORPUSCULAR VOLUME 89.3 fl (80.0-96.0); PLATELET COUNT, AUTOMATED 281 10^3/uL (150-450); RED BLOOD COUNT 4.49 10^6/uL (4.00-5.40); WHITE BLOOD COUNT 5.6 10^3/uL (4.0-10.0)
[2019-11-16 16:16] LABS: INR 0.92; PROTHROMBIN TIME 12.6 SECONDS (11.8-14.0)
[2019-11-16 16:17] LABS: PARTIAL THROMBOPLASTIN TIME 44.4 SECONDS (25.0-38.4)
[2019-11-16 16:40] LABS: BLOOD UREA NITROGEN 12 MG/DL (7-18); CREATININE FOR GFR 0.77 MG/DL (0.55-1.30); GLOMERULAR FILTRATION RATE > 60.0 (>45); GLUCOSE, FASTING 95 MG/DL (70-100); POTASSIUM SERUM 4.2 MEQ/L (3.5-5.1); SODIUM LEVEL 141 MEQ/L (136-145)
[2019-11-16 16:41] LABS: ALBUMIN 3.2 GM/DL (3.2-5.2); ALT/SGPT 14 U/L (12-78); BILIRUBIN,TOTAL 0.2 MG/DL (0.2-1.0); CALCIUM LEVEL 8.9 MG/DL (8.8-10.2); CARBON DIOXIDE LEVEL 33 MEQ/L (21-32); CHLORIDE LEVEL 106 MEQ/L (98-107); FREE T4 0.66 NG/DL (0.76-1.46); NT-PRO BNP 18 PG/ML (<125); TOTAL PROTEIN 6.8 GM/DL (6.4-8.2)
== END ==
LOC: M LAB 15:09
PROVIDERS: ATTEND Family Medicine
DX: Z01.818 Encounter for other preprocedural examination (principal); I25.10 Atherosclerotic heart disease of native coronary artery without angina pectoris
CPT/HCPCS: 36415; 80053; 83880; 84439; 84443; 85027; 85610; 85730; G0463

== ENCOUNTER → 2019-11-16 | Outpatient (CLI) | payer MEDICARE, MEDICAID | LOC: M PAIN 09:23 | PROVIDERS: ATTEND Nurse Practitioner Family | DX: M79.18 Myalgia, other site (principal) ==

== ENCOUNTER → 2020-02-02 | Outpatient (CLI) | payer MEDICARE, MEDICAID ==
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
== END ==
LOC: M PAIN 14:00
PROVIDERS: ATTEND Nurse Practitioner Family
DX: M79.18 Myalgia, other site (principal); K21.9 Gastro-esophageal reflux disease without esophagitis; E55.9 Vitamin D deficiency, unspecified; I25.2 Old myocardial infarction; Z86.59 Personal history of other mental and behavioral disorders; Z96.653 Presence of artificial knee joint, bilateral; Z96.612 Presence of left artificial shoulder joint; Z88.0 Allergy status to penicillin; Z88.5 Allergy status to narcotic agent; Z88.6 Allergy status to analgesic agent; Z79.82 Long term (current) use of aspirin; Z79.899 Other long term (current) drug therapy

== ENCOUNTER 2020-02-22 15:03 | Emergency (ER) | payer MEDICARE, MEDICAID ==
[~2020-02-22] VITALS: Ht 147.3 cm; Wt 62.7 kg
[~2020-02-22 15:03] MED LIST changes: -MONT10TA4 PO; +MONT5TAB2 PO
[2020-02-22 15:37] VITALS: BP 116/80
[2020-02-22 15:42] LABS: BASO # 0.1 10^3/uL (0.0-0.2); BASO % 1.1 % (0.0-1.0); EOS # 0.2 10^3/uL (0.0-0.5); EOS % 2.5 % (0.0-3.0); HEMATOCRIT 40.8 % (36.0-47.0); HEMOGLOBIN 12.1 g/dl (12.0-15.5); LYMPH # 1.4 10^3/uL (1.5-5.0); LYMPH % 21.9 % (24.0-44.0); MEAN CORPUSCULAR HEMOGLOBIN 25.9 pg (27.0-33.0); MEAN CORPUSCULAR HGB CONC 29.7 g/dl (32.0-36.5); MEAN CORPUSCULAR VOLUME 87.4 fl (80.0-96.0); MONO # 0.5 10^3/uL (0.0-0.8); MONO % 7.6 % (0.0-5.0); NEUTROPHILS # 4.3 10^3/uL (1.5-8.5); NEUTROPHILS % 66.4 % (36.0-66.0); PLATELET COUNT, AUTOMATED 325 10^3/uL (150-450); RED BLOOD COUNT 4.67 10^6/uL (4.00-5.40); WHITE BLOOD COUNT 6.5 10^3/uL (4.0-10.0)
[2020-02-22 16:13] LABS: BLOOD UREA NITROGEN 23 MG/DL (7-18); CALCIUM LEVEL 8.9 MG/DL (8.8-10.2); CARBON DIOXIDE LEVEL 27 MEQ/L (21-32); CHLORIDE LEVEL 109 MEQ/L (98-107); CREATININE FOR GFR 0.66 MG/DL (0.55-1.30); GLOMERULAR FILTRATION RATE > 60.0 (>45); GLUCOSE, FASTING 102 MG/DL (70-100); POTASSIUM SERUM 4.3 MEQ/L (3.5-5.1); SODIUM LEVEL 141 MEQ/L (136-145)
[2020-02-22] MEDS ORDERED: METOCLOPRAMIDE INJ 10MG/2ML VIAL (J2765 PER 1) IV ONE (16:45)
[2020-02-22 16:52] LABS: CK-MB VALUE MASS 1.9 NG/ML (<3.6); CPK CREATINE PHOSPHOKINASE 61 U/L (26-192); MB/CK RELATIVE INDEX 3.11 (< OR =4); TROPONIN I < 0.02 NG/ML (< 0.10)
--- NOTE | 2020-02-22 17:28 | REP ---
INDICATION: headache. COMPARISON: Comparison head CT study is from May 22, 2016. TECHNIQUE: Helical scanning is acquired. 5 mm axial images were reformatted. Coronal MPR images were generated. FINDINGS: Bone window settings demonstrate an intact bony calvarium. There is no evidence of skull fracture or incidental bony calvarial lesion. The visualized paranasal sinuses appear clear. No intraorbital abnormality is seen. On soft tissue window setting images; the lateral, third, and fourth ventricles are normal in size and position. Pereira-white differentiation pattern is normal above and below the tentorium. There are is no evidence of intracranial hemorrhage. No mass, edema, infarction, or midline shift is seen. No extra-axial fluid collection is appreciated. There is moderate generalized volume loss. Small vessel atherosclerotic changes are again noted in the periventricular white matter. No acute infarction is seen. There is no evidence of intracranial hemorrhage. No mass, extra-axial fluid collection, or midline shift is observed. No change from comparison study 2017. IMPRESSION: Moderate generalized volume loss. Small vessel changes. No acute intracranial abnormality seen.. <Electronically signed by Greg Lee > 02/22/20 [id number]
[2020-02-22 18:55] VITALS: O2SAT 98
--- NOTE | 2020-02-24 07:58 | ECGEPIP ---
[facility] - ED Test Date: 2020-02-22 Pat Name: ALTHEA CLEMENTS Department: Room: - Gender: Female [employer]: : 1955 Requested By: Jelani Carpenter Order Number: [id number] Reading MD: Shantal Ortega Measurements Intervals [place] Rate: 75 P: 48 MN: 166 QRS: -36 QRSD: 72 T: -16 QT: 347 QTc: 389 Interpretive Statements SINUS RHYTHM LOW QRS VOLTAGE IN PRECORDIAL LEADS PATTERN CONSISTENT WITH PULMONARY DISEASE INFERIOR MYOCARDIAL INFARCTION, OF INDETERMINATE AGE MODERATE T-WAVE ABNORMALITY, CONSIDER ANTERIOR ISCHEMIA DECREASED RATE 12/21/17 Electronically Signed on 02-24-2020 7:57:29 EST by Shantal Ortega
== END 2020-02-22 18:57 | disposition home or self-care (01) ==
LOC: M ED 15:03
DX: R51.9 Headache, unspecified (principal); I25.10 Atherosclerotic heart disease of native coronary artery without angina pectoris; K21.9 Gastro-esophageal reflux disease without esophagitis; K44.9 Diaphragmatic hernia without obstruction or gangrene; M19.90 Unspecified osteoarthritis, unspecified site; F25.9 Schizoaffective disorder, unspecified; Z79.82 Long term (current) use of aspirin; Z79.899 Other long term (current) drug therapy; Z88.0 Allergy status to penicillin; Z88.5 Allergy status to narcotic agent; Z88.6 Allergy status to analgesic agent
CPT/HCPCS: 70450; 80048; 81001; 82550; 82553; 84484; 85025; 87086; 93005; 96374; 99284; J2765; U0002

== ENCOUNTER → 2020-02-28 | Outpatient (CLI) | payer MEDICARE, MEDICAID ==
[~2020-02-28] MED LIST changes: +BUPIVACAINE HCL 0.25% 10ML VIAL As Ordered ONE; +BUPIVACAINE HCL 0.25% 30ML VIAL As Ordered ONE; +NORCO, ANEXSIA 5/325MG TABLET (HYDROcodone/ACETAMINOPHEN) As Ordered ONE; +TRIAMCINOLONE ACETONIDE SUSP 40 MG/ML VIAL (J3301) As Ordered ONE
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
== END ==
LOC: M PAIN 10:30
PROVIDERS: ATTEND Anesthesiology
DX: M79.18 Myalgia, other site (principal); K21.9 Gastro-esophageal reflux disease without esophagitis; E55.9 Vitamin D deficiency, unspecified; Z86.59 Personal history of other mental and behavioral disorders; Z96.653 Presence of artificial knee joint, bilateral; Z96.612 Presence of left artificial shoulder joint; Z88.0 Allergy status to penicillin; Z88.5 Allergy status to narcotic agent; Z88.6 Allergy status to analgesic agent; Z79.82 Long term (current) use of aspirin; Z79.899 Other long term (current) drug therapy
CPT/HCPCS: 20553; G0463; J3301

== ENCOUNTER → 2020-03-08 | Outpatient (CLI) | payer MEDICARE, MEDICAID ==
[~2020-03-08] MED LIST changes: -BUPIVACAINE HCL 0.25% 10ML VIAL As Ordered ONE; -BUPIVACAINE HCL 0.25% 30ML VIAL As Ordered ONE; -NORCO, ANEXSIA 5/325MG TABLET (HYDROcodone/ACETAMINOPHEN) As Ordered ONE; -TRIAMCINOLONE ACETONIDE SUSP 40 MG/ML VIAL (J3301) As Ordered ONE
--- NOTE | 2020-03-08 11:59 | REPMRS ---
Patient History The patient states she has not had a clinical breast exam in over a year. Family history of prostate cancer at age 60 in maternal grandfather. Took hormonal contraceptives for 3 months. Digital Woman Screen Mammo: March 08, 2020 - Exam #: [id number] Bilateral CC and MLO view(s) were taken. Technologist: RT Sal Prior study comparison: November 30, 2014, digital woman screen mammo performed at [facility] [place]. October 13, 2013, left breast digital mammo diagnostic unilateral, performed at [facility]. September 22, 2013, bilateral bilat screen digital mammo, performed at [facility] ([facility]). May 03, 2012, bilateral bilat screen digital mammo, performed at [facility] ([facility]). FINDINGS: There are scattered fibroglandular densities. The Volpara volumetric breast density category is:B. There has been no change in the appearance of the mammogram from the prior studies. There is a mild amount of scattered fibroglandular density which is fairly symmetric. There is no interval development of dominant mass, architectural distortion, or grouped microcalcification suggestive of malignancy. 3-D tomosynthesis shows no additional findings. Assessment: BI-RADS/ACR category 1 mammogram. Negative Mammogram. Recommendation Routine screening mammogram of both breasts in 1 year (for women over age 40). This patient's [facility] Lifetime Breast Cancer Risk is estimated at 8.4 %. This mammogram was interpreted with the aid of an FDA-approved computer-aided dectection system. Electronically Signed By: Greg Lee MD 03/08/20 [id number]
== END ==
LOC: M WHC 10:24
PROVIDERS: ATTEND Nurse Practitioner Adult Health
DX: Z12.31 Encounter for screening mammogram for malignant neoplasm of breast (principal)

== ENCOUNTER → 2020-03-13 | Outpatient (CLI) | payer MEDICARE, MEDICAID ==
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
== END ==
LOC: M PAIN 10:15
PROVIDERS: ATTEND Nurse Practitioner Family
DX: G89.29 Other chronic pain (principal); K21.9 Gastro-esophageal reflux disease without esophagitis; E55.9 Vitamin D deficiency, unspecified; I25.2 Old myocardial infarction; Z86.59 Personal history of other mental and behavioral disorders; Z96.653 Presence of artificial knee joint, bilateral; Z96.612 Presence of left artificial shoulder joint; Z88.0 Allergy status to penicillin; Z88.5 Allergy status to narcotic agent; Z88.6 Allergy status to analgesic agent; Z79.82 Long term (current) use of aspirin; Z79.899 Other long term (current) drug therapy

== ENCOUNTER → 2020-04-12 | Outpatient (CLI) | payer MEDICARE, MEDICAID ==
[~2020-04-12] MED LIST changes: +MONT10TA10 PO; -MONT5TAB2 PO; -QUET1TAB10 PO; +QUET300T2 PO
== END ==
LOC: M LABSMTC 10:30
PROVIDERS: ATTEND Anesthesiology
DX: Z20.822 Contact with and (suspected) exposure to COVID-19 (principal)

== ENCOUNTER → 2020-04-16 | Outpatient (REF) | payer MEDICARE, MEDICAID ==
[2020-04-16 13:49] LABS: HEMATOCRIT 39.5 % (36.0-47.0); HEMOGLOBIN 11.8 g/dl (12.0-15.5); MEAN CORPUSCULAR HEMOGLOBIN 26.3 pg (27.0-33.0); MEAN CORPUSCULAR HGB CONC 29.9 g/dl (32.0-36.5); PLATELET COUNT, AUTOMATED 327 10^3/uL (150-450); RED BLOOD COUNT 4.49 10^6/uL (4.00-5.40); WHITE BLOOD COUNT 4.4 10^3/uL (4.0-10.0)
[2020-04-16 14:40] LABS: BLOOD UREA NITROGEN 20 MG/DL (7-18); CALCIUM LEVEL 9.3 MG/DL (8.8-10.2); CARBON DIOXIDE LEVEL 30 MEQ/L (21-32); CHLORIDE LEVEL 104 MEQ/L (98-107); GLOMERULAR FILTRATION RATE > 60.0 (>45); GLUCOSE, FASTING 89 MG/DL (70-100); POTASSIUM SERUM 4.1 MEQ/L (3.5-5.1); SODIUM LEVEL 140 MEQ/L (136-145)
== END ==
LOC: M SFHCPLAZ 11:27
PROVIDERS: ATTEND Internal Medicine
DX: Z01.818 Encounter for other preprocedural examination (principal); D50.9 Iron deficiency anemia, unspecified

== ENCOUNTER → 2020-04-17 | Outpatient (CLI) | payer MEDICARE, MEDICAID ==
[~2020-04-17] MED LIST changes: +ISOVUE-M 300 61% 15ML VIAL As Ordered ONE; +LIDOCAINE 1% SDV 30ML VIAL As Ordered ONE; +NORCO, ANEXSIA 5/325MG TABLET (HYDROcodone/ACETAMINOPHEN) As Ordered ONE; +methylPREDNISolone SUSP 40MG/ML 1ML VIAL (DEPO MEDROL) As Ordered ONE
--- NOTE | 2020-04-17 16:17 | REP ---
INDICATION: -TCERVICAL EPIDURAL STEROID INJECTION C7-T1. COMPARISON: None. TECHNIQUE: Three views. 22.3 seconds of fluoroscopy time is reported. FINDINGS: A sequence of 3 last image hold fluoroscopically obtained spot radiograph(s) of the cervicothoracic spine document(s) needle position(s) and contrast injection associated with injection procedure. IMPRESSION: Procedural imaging. <Electronically signed by Greg Lee > 04/17/20 [id number]
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
== END ==
LOC: M PAIN 10:00
PROVIDERS: ATTEND Anesthesiology
DX: M50.10 Cervical disc disorder with radiculopathy, unspecified cervical region (principal); F25.9 Schizoaffective disorder, unspecified; F32.9 Major depressive disorder, single episode, unspecified; F41.9 Anxiety disorder, unspecified; K21.9 Gastro-esophageal reflux disease without esophagitis; E55.9 Vitamin D deficiency, unspecified; E78.00 Pure hypercholesterolemia, unspecified; K44.9 Diaphragmatic hernia without obstruction or gangrene; I25.2 Old myocardial infarction; Z79.891 Long term (current) use of opiate analgesic; Z79.899 Other long term (current) drug therapy; Z79.82 Long term (current) use of aspirin; Z88.0 Allergy status to penicillin; Z88.5 Allergy status to narcotic agent; Z88.6 Allergy status to analgesic agent
CPT/HCPCS: 62321; J1030; Q9967

== ENCOUNTER → 2020-05-01 | Outpatient (CLI) | payer MEDICARE, MEDICAID ==
[~2020-05-01] MED LIST changes: -ISOVUE-M 300 61% 15ML VIAL As Ordered ONE; -LIDOCAINE 1% SDV 30ML VIAL As Ordered ONE; -NORCO, ANEXSIA 5/325MG TABLET (HYDROcodone/ACETAMINOPHEN) As Ordered ONE; -methylPREDNISolone SUSP 40MG/ML 1ML VIAL (DEPO MEDROL) As Ordered ONE
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
== END ==
LOC: M PAIN 10:30
PROVIDERS: ATTEND Nurse Practitioner Family
DX: G89.29 Other chronic pain (principal); M79.18 Myalgia, other site; M50.10 Cervical disc disorder with radiculopathy, unspecified cervical region; K21.9 Gastro-esophageal reflux disease without esophagitis; E55.9 Vitamin D deficiency, unspecified; Z86.59 Personal history of other mental and behavioral disorders; Z88.0 Allergy status to penicillin; Z88.5 Allergy status to narcotic agent; Z88.6 Allergy status to analgesic agent; Z79.82 Long term (current) use of aspirin; Z79.899 Other long term (current) drug therapy

== ENCOUNTER → 2020-05-16 | Outpatient (CLI) | payer MEDICARE, MEDICAID ==
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
== END ==
LOC: M PAIN 09:00
PROVIDERS: ATTEND Nurse Practitioner Family
DX: M79.18 Myalgia, other site (principal); K21.9 Gastro-esophageal reflux disease without esophagitis; E55.9 Vitamin D deficiency, unspecified; I25.2 Old myocardial infarction; Z86.59 Personal history of other mental and behavioral disorders; Z88.0 Allergy status to penicillin; Z88.5 Allergy status to narcotic agent; Z88.6 Allergy status to analgesic agent; Z79.82 Long term (current) use of aspirin; Z79.899 Other long term (current) drug therapy

== ENCOUNTER → 2020-05-29 | Outpatient (REF) | payer MEDICARE, MEDICAID ==
[~2020-05-29] MED LIST changes: +NAPR-849 PO; -NAPR250T4 PO
[2020-05-29 14:13] LABS: HEMATOCRIT 39.8 % (36.0-47.0); HEMOGLOBIN 11.9 g/dl (12.0-15.5); MEAN CORPUSCULAR HEMOGLOBIN 26.4 pg (27.0-33.0); MEAN CORPUSCULAR HGB CONC 29.9 g/dl (32.0-36.5); MEAN CORPUSCULAR VOLUME 88.4 fl (80.0-96.0); PLATELET COUNT, AUTOMATED 346 10^3/uL (150-450); WHITE BLOOD COUNT 5.8 10^3/uL (4.0-10.0)
[2020-05-29 14:49] LABS: ALBUMIN 3.3 GM/DL (3.2-5.2); ALT/SGPT 14 U/L (12-78); BILIRUBIN,TOTAL 0.2 MG/DL (0.2-1.0); BLOOD UREA NITROGEN 13 MG/DL (7-18); CALCIUM LEVEL 8.7 MG/DL (8.8-10.2); CARBON DIOXIDE LEVEL 29 MEQ/L (21-32); CHLORIDE LEVEL 108 MEQ/L (98-107); CHOLESTEROL LEVEL 246 MG/DL (<200); CHOLESTEROL RISK RATIO 2.562 (<5); FERRITIN 12 NG/ML (8-252); GLOMERULAR FILTRATION RATE > 60.0 (>45); GLUCOSE, FASTING 98 MG/DL (70-100); HDL CHOLESTEROL 96 MG/DL (>40); IRON (FE) 35 UG/DL (50-170); LDL CHOLESTEROL 131 MG/DL (<100); NON-HDL-C 150 MG/DL; PERCENT SATURATION 8.9 % (13.2-45.0); SODIUM LEVEL 142 MEQ/L (136-145); TOTAL 25(OH) VITAMIN D 37.8 NG/ML (30.0-100.0); TOTAL IRON BINDING CAPACITY 392 UG/DL (250-450); TOTAL PROTEIN 6.9 GM/DL (6.4-8.2); TRIGLYCERIDES LEVEL 95 MG/DL (<150)
== END ==
LOC: M SFHCPLAZ 11:37
PROVIDERS: ATTEND Nurse Practitioner Adult Health
DX: Z01.818 Encounter for other preprocedural examination (principal); E55.9 Vitamin D deficiency, unspecified; D50.9 Iron deficiency anemia, unspecified; E78.2 Mixed hyperlipidemia
CPT/HCPCS: 36415; 80053; 80061; 82306; 82728; 83550; 84443; 85027; G0463

== ENCOUNTER → 2020-07-05 | Outpatient (CLI) | payer MEDICARE, MEDICAID ==
--- NOTE | 2020-07-05 12:27 | REP ---
INDICATION: LUNG NODULE. CT study of the left shoulder from [facility] dated June 24, 2018 showed pulmonary nodules. COMPARISON: Comparison chest CT studies are reviewed from 21 December 2017 [address] [facility] left shoulder CT study images are also reviewed.. TECHNIQUE: Helical scanning is acquired. 3 mm axial images are generated. Coronal and sagittal MPR and coronal MIP images are generated. FINDINGS: Digital preliminary tow boat captain radiograph shows densely calcified mediastinal petra residuals on the left. Prosthetic left shoulder joint is also noted. Incidental note is made of a large amount of formed stool and gas in the transverse colon and hepatic and splenic flexure region suggesting chronic constipation. There is no evidence of pleural effusion or pericardial effusion. There is a moderate size sliding-type hiatal hernia noted. There are granulomatous lymph node calcifications in the hilar regions bilaterally and the AP window region of the mediastinum. There are numerous scattered CT calcific granulomatous nodules in the lung rodriguez which are unchanged from the 2017 and 2015 prior study. There is a bronchiectasis with some inspissated endobronchial mucus in the superior segment of the left lower lobe. This is unchanged from the June 24, 2018 CT images and is visible and essentially unchanged from the December 21, 2017 study. Is also present 2016. There is a 6 mm stable noncalcified nodular opacity with ill-defined margins in the left lower lobe on page 44 of 88 in series 201 of today's study. This is felt to be unchanged from 2018 prior study. There is a 3 mm nodule in the right upper lobe which does not appear to be calcified. This is felt to be visible in retrospect on the prior study from December 21, 2017. It is felt to be unchanged. There is a well-defined cyst in the left lobe of the liver measuring 2.8 cm in greatest diameter. No adrenal lesion is seen. There are granulomatous calcifications scattered in the spleen. These findings are unchanged as well. IMPRESSION: Stable calcified and noncalcified granulomatous nodules in the lung parenchyma bilaterally. Calcific petra residuals in the hilar regions bilaterally and in the mediastinum unchanged. Hiatal hernia and stable left hepatic cyst seen. Large amount of stool and gaseous distention of the transverse colon noted incidentally. Question chronic constipation. <Electronically signed by Greg Lee > 07/05/20 [id number]
== END ==
LOC: M RAD 09:36
PROVIDERS: ATTEND Nurse Practitioner Adult Health
DX: Z01.812 Encounter for preprocedural laboratory examination (principal); R91.8 Other nonspecific abnormal finding of lung field; R91.1 Solitary pulmonary nodule; Z20.822 Contact with and (suspected) exposure to COVID-19; Z96.612 Presence of left artificial shoulder joint; K44.9 Diaphragmatic hernia without obstruction or gangrene; K76.89 Other specified diseases of liver
CPT/HCPCS: 71250; U0003

== ENCOUNTER → 2020-07-05 | Outpatient (CLI) | payer MEDICARE, MEDICAID | LOC: M LABSMTC 12:03 | PROVIDERS: ATTEND Anesthesiology | DX: Z01.812 Encounter for preprocedural laboratory examination (principal); Z20.822 Contact with and (suspected) exposure to COVID-19 ==

== ENCOUNTER → 2020-07-10 | Outpatient (CLI) | payer MEDICARE, MEDICAID ==
[~2020-07-10] MED LIST changes: +BUPIVACAINE HCL 0.25% 10ML VIAL As Ordered ONE; +BUPIVACAINE HCL 0.25% 30ML VIAL As Ordered ONE; +NORCO, ANEXSIA 5/325MG TABLET (HYDROcodone/ACETAMINOPHEN) As Ordered ONE; +TRIAMCINOLONE ACETONIDE SUSP 40 MG/ML VIAL (J3301) As Ordered ONE
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
== END ==
LOC: M PAIN 08:30
PROVIDERS: ATTEND Anesthesiology
DX: M79.18 Myalgia, other site (principal); K21.9 Gastro-esophageal reflux disease without esophagitis; E55.9 Vitamin D deficiency, unspecified; I25.2 Old myocardial infarction; Z86.59 Personal history of other mental and behavioral disorders; Z96.653 Presence of artificial knee joint, bilateral; Z96.612 Presence of left artificial shoulder joint; Z88.0 Allergy status to penicillin; Z88.5 Allergy status to narcotic agent; Z88.6 Allergy status to analgesic agent; Z79.82 Long term (current) use of aspirin; Z79.899 Other long term (current) drug therapy
CPT/HCPCS: 20553; J3301

== ENCOUNTER → 2020-07-30 | Outpatient (CLI) | payer MEDICARE, MEDICAID ==
[~2020-07-30] MED LIST changes: -BUPIVACAINE HCL 0.25% 10ML VIAL As Ordered ONE; -BUPIVACAINE HCL 0.25% 30ML VIAL As Ordered ONE; -NORCO, ANEXSIA 5/325MG TABLET (HYDROcodone/ACETAMINOPHEN) As Ordered ONE; +OMEP20TA2 PO; -OMEP20TA9 PO; -TRIAMCINOLONE ACETONIDE SUSP 40 MG/ML VIAL (J3301) As Ordered ONE
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
== END ==
LOC: M PAIN 09:15
PROVIDERS: ATTEND Nurse Practitioner Family
DX: M79.10 Myalgia, unspecified site (principal); K21.9 Gastro-esophageal reflux disease without esophagitis; E55.9 Vitamin D deficiency, unspecified; I25.2 Old myocardial infarction; Z86.59 Personal history of other mental and behavioral disorders; Z88.0 Allergy status to penicillin; Z88.5 Allergy status to narcotic agent; Z88.6 Allergy status to analgesic agent; Z79.82 Long term (current) use of aspirin; Z79.899 Other long term (current) drug therapy

== ENCOUNTER 2020-09-04 10:31 | Observation (INO) | payer MEDICAID, MEDICARE, OTHER ==
[~2020-09-04] VITALS: Ht 147.3 cm; Wt 66.3 kg
[~2020-09-04 10:31] MED LIST changes: +OMEP40CA4 PO; -OMEP40CA97 PO
[2020-09-04] MEDS ORDERED: BUSP15TA47 PO (10:49)
[2020-09-04] MEDS ORDERED: GI COCKTAIL 50ML BTL(HYOSCYAMINE/MAALOX/LIDOCAINE VISCOUS)(1:3:1) PO ONE (12:10)
[2020-09-04] MEDS ORDERED: PANTOPRAZOLE 40MG VIAL (C9113 PER 1) IV ONE (12:10)
--- NOTE | 2020-09-04 12:38 | REP ---
INDICATION: DYSPNEA/COUGH. COMPARISON: 06/18/2018 the latest prior a frontal view obtained as part of a rib series TECHNIQUE: Portable FINDINGS: The technique utilized in obtaining the radiograph has magnified the cardiac silhouette and accentuated the interstitial markings. There is cardiomegaly accentuated by technique. There is interstitial fibrotic change status quo. In the right lower lobe curvilinear opacities have developed. There is no change in the osseous structures other than a partially imaged left shoulder prosthesis. IMPRESSION: 1. Right lung opacities as described above likely subsegmental atelectatic changes, however, pneumonia cannot be ruled out 2. Cardiomegaly 3. Other findings as described above. <Electronically signed by Adolfo Paula > 09/04/20 [id number]
[2020-09-04 12:46] LABS: BASO # 0.1 10^3/uL (0.0-0.2); BASO % 1.6 % (0.0-1.0); EOS # 0.2 10^3/uL (0.0-0.5); EOS % 3.4 % (0.0-3.0); HEMATOCRIT 39.9 % (36.0-47.0); HEMOGLOBIN 11.9 g/dl (12.0-15.5); LYMPH # 1.2 10^3/uL (1.5-5.0); LYMPH % 25.7 % (24.0-44.0); MEAN CORPUSCULAR HGB CONC 29.8 g/dl (32.0-36.5); MEAN CORPUSCULAR VOLUME 87.3 fl (80.0-96.0); MONO # 0.4 10^3/uL (0.0-0.8); MONO % 9.6 % (2.0-8.0); NEUTROPHILS # 2.7 10^3/uL (1.5-8.5); NEUTROPHILS % 59.3 % (36.0-66.0); PLATELET COUNT, AUTOMATED 331 10^3/uL (150-450); RED BLOOD COUNT 4.57 10^6/uL (4.00-5.40); WHITE BLOOD COUNT 4.5 10^3/uL (4.0-10.0)
[2020-09-04] MEDS ORDERED: SUCRALFATE SUSP 1GM/10ML UD PO ONE (13:15)
[2020-09-04 13:19] LABS: ALBUMIN 3.3 GM/DL (3.2-5.2); ALT/SGPT 12 U/L (12-78); BILIRUBIN,DIRECT < 0.1 MG/DL (0.0-0.2); BILIRUBIN,TOTAL 0.2 MG/DL (0.2-1.0); NT-PRO BNP 18 PG/ML (<125); TOTAL PROTEIN 7.3 GM/DL (6.4-8.2)
[2020-09-04] MEDS ORDERED: ISOVUE-370 76% 100ML VIAL As Ordered ONE (13:37)
--- NOTE | 2020-09-04 14:24 | REP ---
INDICATION: CP COMPARISON: Multiple the latest 07/05/[address] TECHNIQUE: CT angiography of the chest attention pulmonary arteries after the intravenous administration of 100 cc Isovue 370. FINDINGS: There is excellent visualization of the pulmonary arterial vasculature. No focal filling defects are present that would be considered consistent with acute pulmonary emboli. There is no mediastinal or hilar adenopathy. The esophagus appears gas and content filled. There are no pleural or pericardial effusions. The imaged upper abdomen shows a hiatal hernia and in unchanged cyst in the lateral segment of the left lobe of the liver. There is no significant change in the appearance of the imaged osseous structures. Evaluation of the lung rodriguez shows new scattered asymmetric and nodular densities seen rather diffusely but particularly in the right middle and right upper lobes where the opacities appear more conglomerate. IMPRESSION: 1. There is no evidence of a pulmonary embolus. 2. Abnormal lung field findings as described above. Since they represent an acute change compared to the prior exam they are of likely infectious etiology, however, clinical correlation and follow-up is recommended. 3. Other findings as described above. <Electronically signed by Adolfo Paula > 09/04/20 [id number]
--- NOTE | 2020-09-04 14:31 | REP ---
INDICATION: distended abdomen/pain. COMPARISON: 01/02/2016 the latest prior TECHNIQUE: Standard helical technique after the intravenous administration of 100 cc Isovue 370. FINDINGS: The liver, spleen, pancreas, adrenal glands, and kidneys are essentially unchanged. There is a cyst in the lateral segment of the left lobe of the liver which has gotten slightly larger from the prior exam. Mm sized renal cortical cysts are also present. There is a hiatal hernia which is stable. There is no free fluid or free air. There is no significant change in appearance of the bowel loops or the mesenteries. There is a moderate to large amount of content seen throughout the colon with the exception of the sigmoid colon which is nearly devoid of content. There is no evidence of a mass or adenopathy. The osseous structures are stable and intact. There is a small umbilical hernia through which only mesentery protrudes. The aperture of this measures approximately 1.4 cm. IMPRESSION: There is no evidence of acute intraabdominal or intrapelvic disease. Findings as described above. <Electronically signed by Adolfo Paula > 09/04/20 [id number]
[2020-09-04] MEDS ORDERED: LevoFLOXacin IV 750 MG in IV 1 EA IV ONE (16:00)
[2020-09-04] MEDS ORDERED: D31000TA2 PO (16:41)
[2020-09-04] MEDS ORDERED: QUET300T53 PO (16:41)
[2020-09-04] MEDS ORDERED: CETI-24 PO (16:41)
[2020-09-04] MEDS ORDERED: QUET50TA48 PO (16:41)
[2020-09-04] MEDS ORDERED: DULO1CAP6 PO (16:41)
[2020-09-04] MEDS ORDERED: ACET-683 PO (16:42)
[2020-09-04] MEDS ORDERED: LAMO200T3 PO (16:43)
[2020-09-04] MEDS ORDERED: MOM 30ML SUSPENSION UDC PO PRN (17:30)
[2020-09-04] MEDS ORDERED: ACETAMINOPHEN TAB 650MG DOSE (2X325MG) PO PRN (17:30)
[2020-09-04] MEDS ORDERED: MAALOX 30 ML SUSP *UDC PO PRN (17:30)
--- NOTE | 2020-09-04 17:52 | HPEPDOC ---
[facility] [place] Date of Admission Sep 04, 2020 Date of Service: Sep 04, 2020 History and Physical CHIEF COMPLAINT: Bad Acid reflux HISTORY OF PRESENT ILLNESS: 64-year-old female with history of arthritis, hyperlipidemia, schizoaffective disorder, depression who presents to the ED because of uncontrolled that acid reflux. She states she has had burning especially related to spicy food and chilly which is relieved with her acid suppressant but she hasn't been compliant with it. Denies chest pain or shortness of breath. Denies fevers or chills. She does endorse a cough and occasionally has posttussive emesis if she coughs too much. She tells me she's been having ongoing problems with GERD. She tells me all her issues resolve when she takes an acid suppressant. She had some upper she had some epigastric discomfort and in the ED and they did a CT abdomen and pelvis which was negative for acute findings. Patient was going to be discharged from the ED however CT chest was suggestive of infectious etiology and Dr. Ledezma wanted to admit the patient for suspected pneumonia she started her on levofloxacin for community-acquired pneumonia. Patient is afebrile does not have an elevated white count and does not have a productive sputum. I'll admit the patient for observation for possible pneumonia versus GERD. PAST MEDICAL/SURGICAL HISTORY: Arthritis HLS POLYARTHRIGLIA SCHIZOAFFECTIVE DISORDER DEPRESSION/ANXIETY GERD HIATEL HERNIA Bilateral knee replacement Left shoulder replacement R carpel tunnel release SOCIAL HISTORY: Denies alcohol use Denies tobacco use Denies illicit drug use FAMILY HISTORY: Reviewed and none contributory to this admission ALLERGIES: Please see below. REVIEW OF SYSTEMS: 10 point review of systems complete all negative otherwise stated in HPI HOME MEDICATIONS: Please see below. PHYSICAL EXAMINATION: Constitutional: Awake and alert, in no apparent distress. occasional dry cough. ENT: Sclera are clear. Mucosa is moist. Respiratory: Lungs CTA bilaterally. No respiratory distress. No use of accessory muscles. Saturating at 95% on room air. Cardiovascular: RRR S1 and S2 are normal, no murmur Gastrointestinal: Abdomen is soft, non distended, non tender, BS present. Musculoskeletal: No lower extremity edema. Neurologic: No focal neurological deficit. Mental Status: A&O x3, normal affect LABORATORY DATA: See below. IMAGING: See chart MICROBIOLOGY: Please see below. ASSESSMENT/PLAN 64-year-old female with history of arthritis, hyperlipidemia, schizoaffective disorder, depression who presents to the ED because of uncontrolled that acid reflux, there is concern for possible pneumonia on CT and patient was admitted for observation # GERD: related to spicy food and PPI none compliance. IV protonix for now. Counseled on foods to avoid and medication compliance. PCP followup. # Dry cough: suspect 2/2 GERD # ? PNA: my suspition is low, Fu procalcitonin. CT shows shows new scattered asymmetric and nodular densities seen rather diffusely but particularly in the right middle and right upper lobes where the opacities appear more conglomerate. CT suggests infectious etiology. Afebrile. No leukocytosis. Levofloxacin for now, if procalcitonin is negative this will be discontinued. Sputum cx. bcx. viral panel. # Continue home medications for chronic medical problems # DVT prophylaxis: Lovenox A Yousef Hospitalist Vital Signs Vital Signs Date Time Temp Pulse Resp B/P (MAP) Pulse Ox O2 Delivery O2 Flow Rate FiO2 09/04/20 15:16 94 09/04/20 15:15 131/78 (95) 09/04/20 14:46 20 90 Room Air 09/04/20 10:31 97.3 Laboratory Data Labs 24H Laboratory Tests 2 09/04/20 12:20: Immature Granulocyte % (Auto) 0.4, Neutrophils (%) (Auto) 59.3, Lymphocytes (%) (Auto) 25.7, Monocytes (%) (Auto) 9.6H, Eosinophils (%) (Auto) 3.4H, Basophils (%) (Auto) 1.6H, Neutrophils # (Auto) 2.7, Lymphocytes # (Auto) 1.2L, Monocytes # (Auto) 0.4, Eosinophils # (Auto) 0.2, Basophils # (Auto) 0.1, Nucleated Red Blood Cells % (auto) 0.0, Total Bilirubin 0.2, Direct Bilirubin < 0.1, Aspartate Amino Transf (AST/SGOT) 15, Alanine Aminotransferase (ALT/SGPT) 12, Alkaline Phosphatase 170H, XU-Zhn-S-Type Natriuretic Peptide 18, Total Protein 7.3, Albumin 3.3, Albumin/Globulin Ratio 0.8L, Thyroid Stimulating Hormone (TSH) 1.570 09/04/20 12:36: POC Glucose (Misc Panel) 91, POC Sodium (Misc Panel) 144, POC Potassium (Misc Panel) 4.3, POC Chloride (Misc Panel) 104, POC Total CO2 (Misc Panel) 28.0H, POC Blood Urea Nitrogen (Misc Panel 7L, POC Ionized Calcium (Misc Panel) 5.0, POC Creatinine (Misc Panel) 0.6, POC Hematocrit (Misc Panel) 41.0 09/04/20 12:41: POC Troponin I (Misc) 0.00 CBC/BMP Laboratory Tests 09/04/20 12:20 Home Medications Scheduled Aspirin (Aspirin EC) 81 Mg Tab, 81 MG PO DAILY Buspirone HCl (Buspirone HCl) 15 Mg Tablet, 15 MG PO BID Cetirizine HCl (Cetirizine HCl) 10 Mg Tablet, 10 MG PO DAILY Cholecalciferol (Vitamin D3) (Vitamin D3) 1,000 Unit Tablet, 2,000 UNITS PO DAILY Duloxetine Hcl (Duloxetine HCl) 60 Mg Capsule.dr, 60 MG PO BID Lamotrigine (Lamotrigine) 200 Mg Tablet, 200 MG PO DAILY Montelukast Sodium (Montelukast Sodium) 10 Mg Tab, 10 MG PO QPM Omeprazole (Omeprazole) 40 Mg Cap, 40 MG PO DAILY Quetiapine Fumarate (Quetiapine Fumarate ER) 300 Mg Tab.er.24h, 600 MG PO QHS Quetiapine Fumarate (Quetiapine Fumarate ER) 50 Mg Tab.er.24h, 100 MG PO QAM Simvastatin (Simvastatin) 20 Mg Tab, 20 MG PO QHS Scheduled PRN Acetaminophen (Acetaminophen) 500 Mg Tablet, 1,000 MG PO Q6H PRN for PAIN Allergies Coded Allergies: Penicillins (Verified Allergy, Unknown, 07/04/18) codeine (Verified Allergy, Unknown, 07/04/18) ibuprofen (Verified Allergy, Unknown, 07/04/18) A-FIB/CHADSVASC A-FIB History Current/History of A-Fib/PAF?: No FINESSE OMALLEY MD Sep 04, 2020 17:52
[2020-09-04 18:58] LABS: RSV AMPLIFICATION NEGATIVE (NEGATIVE)
[2020-09-04 20:10] VITALS: BP 141/96
[2020-09-04] MEDS ORDERED: QUEtiapine 300 MG XR TABLET(SEROQUEL XR) PO SCH (21:00)
[2020-09-04] MEDS ORDERED: SIMVASTATIN 20 MG TAB PO SCH (21:00)
[2020-09-04] MEDS ORDERED: MONTELUKAST 10 MG TAB PO SCH (21:00)
--- NOTE | 2020-09-04 21:07 | ECGEPIP ---
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
[2020-09-04] MEDS: busPIRone 5 MG TAB PO SCH (22:00)
[2020-09-04] MEDS: DOCUSATE SODIUM 100MG CAPSULE PO SCH (22:00)
[2020-09-04] MEDS: DULoxetine 30 MG CAP (CYMBALTA) PO SCH (22:00)
[2020-09-05 06:00] VITALS: BP 103/75
[2020-09-05 06:57] LABS: HEMATOCRIT 37.5 % (36.0-47.0); HEMOGLOBIN 11.6 g/dl (12.0-15.5); MEAN CORPUSCULAR HGB CONC 30.9 g/dl (32.0-36.5); MEAN CORPUSCULAR VOLUME 84.1 fl (80.0-96.0); PLATELET COUNT, AUTOMATED 313 10^3/uL (150-450); RED BLOOD COUNT 4.46 10^6/uL (4.00-5.40); WHITE BLOOD COUNT 5.2 10^3/uL (4.0-10.0)
[2020-09-05 07:26] LABS: BLOOD UREA NITROGEN 9 MG/DL (7-18); CALCIUM LEVEL 8.9 MG/DL (8.8-10.2); CARBON DIOXIDE LEVEL 28 MEQ/L (21-32); CHLORIDE LEVEL 108 MEQ/L (98-107); CREATININE FOR GFR 0.66 MG/DL (0.55-1.30); GLOMERULAR FILTRATION RATE > 60.0 (>45); GLUCOSE, FASTING 89 MG/DL (70-100); POTASSIUM SERUM 4.3 MEQ/L (3.5-5.1); SODIUM LEVEL 141 MEQ/L (136-145)
[2020-09-05] MEDS ORDERED: ENOXAPARIN 40MG/0.4ML SYRINGE (J1650 PER 10MG) SC SCH (09:00)
[2020-09-05] MEDS ORDERED: QUEtiapine FUMERATE XR 50 MG TABER PO SCH (09:00)
[2020-09-05] MEDS ORDERED: lamoTRIgine 100MG TAB PO SCH (09:00)
[2020-09-05] MEDS ORDERED: CETIRIZINE (ZyrTEC) 10 MG TAB PO SCH (09:00)
[2020-09-05] MEDS ORDERED: ASPIRIN 81MG ENTERIC TABLET PO SCH (09:00)
[2020-09-05] MEDS: DULoxetine 30 MG CAP (CYMBALTA) PO SCH (09:55)
[2020-09-05] MEDS: busPIRone 5 MG TAB PO SCH (09:55)
[2020-09-05] MEDS: DOCUSATE SODIUM 100MG CAPSULE PO SCH (09:56)
--- NOTE | 2020-09-05 10:21 | IPNPDOC ---
Text Note Date of Service The patient was seen on 09/05/20. NOTE Subjective: Patient was seen and examined smile at bedside. Patient tells me she's feeling better her symptoms just since yesterday are related to the type of food she eats. She denies any shortness of breath or chest pain. Tongue midline down right after eating makes her symptoms worse and when she sits upright for some period of time she has been. No acute overnight events reported to me. She denies fevers or chills. She does report a small amount sputum production today. Objective: Constitutional: Awake and alert, in no apparent distress. occasional dry cough. ENT: Sclera are clear. Mucosa is moist. Respiratory: Lungs CTA bilaterally. No respiratory distress. No use of accessory muscles. Saturating at 95% on room air. Cardiovascular: RRR S1 and S2 are normal, no murmur Gastrointestinal: Abdomen is soft, non distended, non tender, BS present. Musculoskeletal: No lower extremity edema. Neurologic: No focal neurological deficit. Mental Status: A&O x3, normal affect Assessment/plan: 64-year-old female with history of arthritis, hyperlipidemia, schizoaffective disorder, depression who presents to the ED because of uncontrolled that acid reflux, there is concern for possible pneumonia on CT and patient was admitted for observation # GERD: related to spicy food & PPI nonecompliance. IV protonix transitioned to oral PPI on discharge. Counseled on foods to avoid and medication compliance. PCP followup. # Dry cough: suspect 2/2 GERD # Possible PNA: my suspicion is low, procalcitonin is low. CT shows shows new scattered asymmetric and nodular densities seen rather diffusely but particularly in the right middle and right upper lobes where the opacities appear more conglomerate. CT suggests infectious etiology. Afebrile. No leukocytosis. Levofloxacin on discharge despite low suspicion because of her CT findings in addition to yellow sputum production today. # Continue home medications for chronic medical problems # DVT prophylaxis: Lovenox A Yousef Hospitalist Radha TEIXEIRA, I+O VSRadha, I+O Laboratory Tests 09/04/20 12:20 09/05/20 06:22 Vital Signs Date Time Temp Pulse Resp B/P (MAP) Pulse Ox O2 Delivery O2 Flow Rate FiO2 09/05/20 06:00 98.5 83 18 103/75 (84) 93 Room Air I&O- Last 24 Hours up to 6 AM 09/05/20 06:00 Intake Total 150 ml Output Total 0 ml Balance 150 ml FINESSE OMALLEY MD Sep 05, 2020 10:21
[2020-09-05] MEDS ORDERED: LEVO750T14 PO (10:23)
[2020-09-05] MEDS ORDERED: PANTOPRAZOLE 40MG VIAL (C9113 PER 1) IV SCH (13:00)
[2020-09-05] MEDS ORDERED: LevoFLOXacin IV 750 MG in IV 1 EA IV SCH (18:00)
== END 2020-09-05 11:45 | disposition home or self-care (01) ==
LOC: M ED 10:31 → M ED INP 10:32 → ENRESERV 19:09 → M MS5PR 20:09
PROVIDERS: ADMIT Family Medicine; ATTEND Family Medicine
DX: J18.9 Pneumonia, unspecified organism (principal); K21.9 Gastro-esophageal reflux disease without esophagitis; R07.9 Chest pain, unspecified; R06.00 Dyspnea, unspecified; R10.9 Unspecified abdominal pain; E78.49 Other hyperlipidemia; F25.9 Schizoaffective disorder, unspecified; F32.9 Major depressive disorder, single episode, unspecified; Z79.82 Long term (current) use of aspirin; Z79.899 Other long term (current) drug therapy; Z88.0 Allergy status to penicillin; Z88.5 Allergy status to narcotic agent
CPT/HCPCS: 36415; 71045; 71275; 74177; 80047; 80048; 80076; 83605; 83880; 84145; 84443; 84484; 85025; 85027; 87040; 87631; 93005; 93041; 94760; 96365; 96372; 96375; 96376; 99285; C9113; G0378; J1650; J1956; Q9967

== ENCOUNTER 2020-09-13 11:02 | Emergency (ER) | payer MEDICAID, MEDICARE ==
[~2020-09-13] VITALS: Ht 147.3 cm; Wt 65.5 kg
[~2020-09-13 11:02] MED LIST changes: -ONDA4TAB6 PO; -TRAM50TA2
[2020-09-13] MEDS ORDERED: TRAM50TA2 (11:15)
[2020-09-13 12:09] LABS: BASO # 0.1 10^3/uL (0.0-0.2); EOS # 0.2 10^3/uL (0.0-0.5); EOS % 4.2 % (0.0-3.0); HEMATOCRIT 41.4 % (36.0-47.0); HEMOGLOBIN 12.5 g/dl (12.0-15.5); LYMPH # 1.7 10^3/uL (1.5-5.0); LYMPH % 33.3 % (24.0-44.0); MEAN CORPUSCULAR HEMOGLOBIN 26.2 pg (27.0-33.0); MEAN CORPUSCULAR HGB CONC 30.2 g/dl (32.0-36.5); MEAN CORPUSCULAR VOLUME 86.6 fl (80.0-96.0); MONO # 0.6 10^3/uL (0.0-0.8); MONO % 12.9 % (2.0-8.0); NEUTROPHILS # 2.4 10^3/uL (1.5-8.5); NEUTROPHILS % 47.2 % (36.0-66.0); PLATELET COUNT, AUTOMATED 330 10^3/uL (150-450); RED BLOOD COUNT 4.78 10^6/uL (4.00-5.40)
[2020-09-13] MEDS ORDERED: ONDANSETRON 4MG/2ML VIAL IV ONE (12:10)
[2020-09-13] MEDS ORDERED: NS 1,000 ML IV ONE (12:10)
[2020-09-13] MEDS ORDERED: PANTOPRAZOLE 40MG VIAL (C9113 PER 1) IV ONE (12:10)
--- NOTE | 2020-09-13 12:27 | REP ---
INDICATION: epigastric pain. COMPARISON: 09/04/2020 also portable TECHNIQUE: Portable FINDINGS: The technique utilized in obtaining the radiograph has magnified the cardiac silhouette and accentuated the interstitial markings. There is cardiomegaly accentuated by technique. The patchy right lung field opacities seen on the prior exam of resolved. Lung rodriguez are clear. The pleural angles are sharp. The osseous structures stable and intact. IMPRESSION: Cardiomegaly without evidence of acute cardiopulmonary disease. <Electronically signed by Adolfo Paula > 09/13/20 2268
[2020-09-13 13:39] LABS: ALBUMIN 3.2 GM/DL (3.2-5.2); ALT/SGPT 12 U/L (12-78); BILIRUBIN,DIRECT < 0.1 MG/DL (0.0-0.2); BILIRUBIN,TOTAL 0.2 MG/DL (0.2-1.0); CK-MB VALUE MASS < 1.0 NG/ML (<3.6); CPK CREATINE PHOSPHOKINASE 54 U/L (26-192); LIPASE 71 U/L (73-393); MB/CK RELATIVE INDEX 1.85 (< OR =4); TOTAL PROTEIN 7.3 GM/DL (6.4-8.2); TROPONIN I < 0.02 NG/ML (< 0.10)
[2020-09-13] MEDS ORDERED: GI COCKTAIL 50ML BTL(HYOSCYAMINE/MAALOX/LIDOCAINE VISCOUS)(1:3:1) PO ONE (14:45)
[2020-09-13] MEDS ORDERED: ONDA4TAB6 PO (15:50)
[2020-09-13 16:22] VITALS: BP 118/64
--- NOTE | 2020-09-13 20:58 | ECGEPIP ---
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 Order Number: [id number] Reading MD: Jelani Lemon Measurements Intervals [place] Rate: 75 P: 25 [place]: 162 QRS: -28 QRSD: 80 T: 9 QT: 374 QTc: 417 Interpretive Statements Normal sinus rhythm Anterior infarct , age undetermined T wave abnormality, consider ischemia SIMILAR TO 09/04/20 Electronically Signed on 09-13-2020 20:57:59 EDT by Jelani Lemon
== END 2020-09-13 17:25 | disposition home or self-care (01) ==
LOC: M ED 11:02
DX: K21.9 Gastro-esophageal reflux disease without esophagitis (principal); K29.70 Gastritis, unspecified, without bleeding; E78.5 Hyperlipidemia, unspecified; F25.9 Schizoaffective disorder, unspecified; I51.7 Cardiomegaly; Z79.899 Other long term (current) drug therapy; Z88.0 Allergy status to penicillin; Z88.5 Allergy status to narcotic agent; Z88.6 Allergy status to analgesic agent
CPT/HCPCS: 36415; 71045; 80047; 80076; 82550; 82553; 83690; 84484; 85025; 86850; 86900; 86901; 93005; 93041; 99285; C9113; J2405

== ENCOUNTER → 2020-09-13 | Outpatient (CLI) | payer MEDICARE, MEDICAID ==
[~2020-09-13] MED LIST changes: +BUSP15TA47 PO; +CETI-24 PO; +D31000TA2 PO; +LAMO200T3 PO; +LEVO750T14 PO; +ONDA4TAB6 PO; +QUET300T53 PO; +QUET50TA48 PO; +TRAM50TA2
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
== END ==
LOC: M PAIN 10:00
PROVIDERS: ATTEND Nurse Practitioner Family
DX: M79.10 Myalgia, unspecified site (principal); K21.9 Gastro-esophageal reflux disease without esophagitis; E55.9 Vitamin D deficiency, unspecified; I25.2 Old myocardial infarction; Z86.59 Personal history of other mental and behavioral disorders; Z96.653 Presence of artificial knee joint, bilateral; Z96.612 Presence of left artificial shoulder joint; Z88.0 Allergy status to penicillin; Z88.5 Allergy status to narcotic agent; Z88.6 Allergy status to analgesic agent; Z79.82 Long term (current) use of aspirin; Z79.891 Long term (current) use of opiate analgesic; Z79.899 Other long term (current) drug therapy

== ENCOUNTER 2020-09-28 09:08 | Emergency (ER) | payer MEDICARE, MEDICAID ==
[~2020-09-28] VITALS: Ht 147.3 cm; Wt 66.4 kg
[~2020-09-28 09:08] MED LIST changes: -CYMB60CA3 PO; +CYMB60CA4 PO; -MONT10TA10 PO; +MONT10TA97 PO; +ONDA4TAB6 PO; +TRAM50TA2
[2020-09-28] MEDS ORDERED: LIDOCAINE 5% (LIDODERM) PATCH TD ONE (09:25)
[2020-09-28] MEDS ORDERED: METOCLOPRAMIDE INJ 10MG/2ML VIAL (J2765 PER 1) IV ONE (09:25)
[2020-09-28] MEDS ORDERED: NS 1,000 ML IV SCH (09:25)
[2020-09-28 10:04] LABS: BASO # 0.1 10^3/uL (0.0-0.2); EOS # 0.3 10^3/uL (0.0-0.5); EOS % 4.8 % (0.0-3.0); HEMOGLOBIN 11.7 g/dl (12.0-15.5); LYMPH # 1.5 10^3/uL (1.5-5.0); LYMPH % 25.1 % (24.0-44.0); MEAN CORPUSCULAR HEMOGLOBIN 25.5 pg (27.0-33.0); MEAN CORPUSCULAR VOLUME 85.2 fl (80.0-96.0); MONO # 0.6 10^3/uL (0.0-0.8); MONO % 9.9 % (2.0-8.0); NEUTROPHILS # 3.4 10^3/uL (1.5-8.5); NEUTROPHILS % 58.7 % (36.0-66.0); PLATELET COUNT, AUTOMATED 362 10^3/uL (150-450); RED BLOOD COUNT 4.58 10^6/uL (4.00-5.40); WHITE BLOOD COUNT 5.9 10^3/uL (4.0-10.0)
[2020-09-28 10:38] LABS: ALBUMIN 3.3 GM/DL (3.2-5.2); ALT/SGPT 15 U/L (12-78); BILIRUBIN,DIRECT < 0.1 MG/DL (0.0-0.2); BILIRUBIN,TOTAL 0.3 MG/DL (0.2-1.0); BLOOD UREA NITROGEN 9 MG/DL (7-18); CALCIUM LEVEL 8.7 MG/DL (8.8-10.2); CARBON DIOXIDE LEVEL 30 MEQ/L (21-32); CHLORIDE LEVEL 106 MEQ/L (98-107); GLOMERULAR FILTRATION RATE > 60.0 (>45); GLUCOSE, FASTING 94 MG/DL (70-100); LIPASE 53 U/L (73-393); POTASSIUM SERUM 3.7 MEQ/L (3.5-5.1); SODIUM LEVEL 141 MEQ/L (136-145); TOTAL PROTEIN 7.1 GM/DL (6.4-8.2)
[2020-09-28] MEDS ORDERED: FLEET ENEMA PR STA (10:51)
[2020-09-28] MEDS ORDERED: COLA100C5 PO (13:23)
[2020-09-28 13:31] VITALS: BP 129/69
[2020-09-28] MEDS ORDERED: **NOTE PATIENT COMMENT** MISC XX SCH (21:00)
== END 2020-09-28 13:57 | disposition home or self-care (01) ==
LOC: EDBD 09:08 → M ED 09:08
DX: K59.00 Constipation, unspecified (principal); E78.5 Hyperlipidemia, unspecified; K21.9 Gastro-esophageal reflux disease without esophagitis; F25.9 Schizoaffective disorder, unspecified; Z88.0 Allergy status to penicillin; Z88.6 Allergy status to analgesic agent
CPT/HCPCS: 36415; 74021; 80048; 80076; 83690; 85025; 93005; 93041; 96361; 96374; 99285; J2765

== ENCOUNTER → 2020-10-01 | Outpatient (CLI) | payer MEDICARE, OTHER, MEDICAID | LOC: M RAD 06:05 | PROVIDERS: ATTEND Nurse Practitioner Adult Health | DX: K76.89 Other specified diseases of liver (principal) ==

== ENCOUNTER 2020-10-05 11:41 | Emergency (ER) | payer MEDICARE, OTHER ==
[~2020-10-05 11:41] MED LIST changes: +CYMB60CA3 PO; -CYMB60CA4 PO; +MONT10TA10 PO; -MONT10TA97 PO
[2020-10-05 12:36] LABS: BASO # 0.1 10^3/uL (0.0-0.2); BASO % 1.6 % (0.0-1.0); EOS # 0.2 10^3/uL (0.0-0.5); EOS % 4.6 % (0.0-3.0); HEMATOCRIT 38.8 % (36.0-47.0); HEMOGLOBIN 11.7 g/dl (12.0-15.5); LYMPH # 1.4 10^3/uL (1.5-5.0); LYMPH % 32.6 % (24.0-44.0); MEAN CORPUSCULAR HEMOGLOBIN 25.8 pg (27.0-33.0); MEAN CORPUSCULAR HGB CONC 30.2 g/dl (32.0-36.5); MEAN CORPUSCULAR VOLUME 85.7 fl (80.0-96.0); MONO # 0.5 10^3/uL (0.0-0.8); MONO % 10.4 % (2.0-8.0); NEUTROPHILS # 2.2 10^3/uL (1.5-8.5); NEUTROPHILS % 50.6 % (36.0-66.0); PLATELET COUNT, AUTOMATED 282 10^3/uL (150-450); RED BLOOD COUNT 4.53 10^6/uL (4.00-5.40); WHITE BLOOD COUNT 4.3 10^3/uL (4.0-10.0)
[2020-10-05 13:04] LABS: ALBUMIN 3.3 GM/DL (3.2-5.2); ALT/SGPT 15 U/L (12-78); BILIRUBIN,DIRECT < 0.1 MG/DL (0.0-0.2); BILIRUBIN,TOTAL 0.2 MG/DL (0.2-1.0); LIPASE 72 U/L (73-393); TOTAL PROTEIN 7.3 GM/DL (6.4-8.2)
[2020-10-05] MEDS ORDERED: ONDANSETRON 4MG/2ML VIAL IV ONE (14:40)
[2020-10-05] MEDS ORDERED: NS 1,000 ML IV ONE (14:40)
[2020-10-05] MEDS ORDERED: ISOVUE-370 76% 100ML VIAL As Ordered ONE (14:43)
[2020-10-05 14:58] LABS: CK-MB VALUE MASS < 1.0 NG/ML (<3.6); CPK CREATINE PHOSPHOKINASE 33 U/L (26-192); MB/CK RELATIVE INDEX 3.03 (< OR =4); TROPONIN I < 0.02 NG/ML (< 0.10)
--- NOTE | 2020-10-05 15:39 | REP ---
INDICATION: epigastric pain, nausea and vomiting. COMPARISON: Comparison CT study September 04, 2020.. TECHNIQUE: Helical scanning was acquired and 4 mm axial images are re-formatted. Coronal and sagittal MPR images were generated and reviewed. The contrast enhancement dose is 100 mL of intravenous Isovue 370. FINDINGS: Preliminary digital washhouse hand radiograph and axial CT images show a large amount of formed stool throughout the somewhat dilated colon. The rectum however does not contain formed stool. The left colon is stool filled to the distal descending segment. No obstructive lesion is appreciated. The lung bases are clear on axial CT images. There is a moderate size sliding-type hiatal hernia. A cyst is noted in the left lobe of the liver measuring 3.1 cm in diameter. These findings are unchanged. No abnormality is noted in the pancreas or the gallbladder. Normal adrenal glands are seen. The spleen contains a few calcifications but is intact and normal in size. Kidneys enhance symmetrically. There is a tiny cortical cyst in the lower pole the right kidney. They are otherwise morphologically intact. A normal appendix is seen in the right lower quadrant. The uterus is retroverted retroflexed and contains a small fibroid in the uterine fundus. This measures 3.5 cm in greatest diameter. Urinary bladder is unremarkable. There is a small umbilical hernia trans Busch abdominal fat. No other abdominal wall defect is seen. No bony destructive lesion is seen. IMPRESSION: Hiatal hernia. Left hepatic cyst. Moderate to large amount of formed stool proximal to the distal descending colon again noted. Small uterine fibroid. Umbilical hernia transmitting small quantity of abdominal fat. <Electronically signed by Greg Lee > 10/05/20 [id number]
[2020-10-05] MEDS ORDERED: GI COCKTAIL 50ML BTL(HYOSCYAMINE/MAALOX/LIDOCAINE VISCOUS)(1:3:1) PO ONE (15:50)
--- NOTE | 2020-10-05 16:38 | REP ---
INDICATION: chest discomfort. COMPARISON: Frontal view the chest obtained as part of an abdominal series 09/28/2020 TECHNIQUE: PA and lateral FINDINGS: The cardiomediastinal silhouette is unchanged. There is cardiomegaly status quo. There is thoracic aortic tortuosity status quo. There is a hiatal hernia unchanged. The lung rodriguez are unchanged. No acute patchy parenchymal opacities or pleural effusions have developed. There is no change in the osseous structures. IMPRESSION: No evidence of acute cardiopulmonary disease or significant change compared to the prior exam with findings as described above. <Electronically signed by Adolfo Paula > 10/05/20 [id number]
[2020-10-05 19:58] VITALS: BP 119/80
--- NOTE | 2020-10-06 10:50 | ECGEPIP ---
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
== END 2020-10-05 20:30 | disposition home or self-care (01) ==
LOC: M ED 11:41
DX: K21.9 Gastro-esophageal reflux disease without esophagitis (principal); R11.2 Nausea with vomiting, unspecified; K44.9 Diaphragmatic hernia without obstruction or gangrene; R19.7 Diarrhea, unspecified; D25.9 Leiomyoma of uterus, unspecified; K42.9 Umbilical hernia without obstruction or gangrene; K76.89 Other specified diseases of liver; K59.00 Constipation, unspecified; Z79.82 Long term (current) use of aspirin; Z79.899 Other long term (current) drug therapy; Z88.0 Allergy status to penicillin; Z88.6 Allergy status to analgesic agent; Z88.5 Allergy status to narcotic agent
CPT/HCPCS: 71046; 74177; 80047; 80076; 82550; 82553; 83690; 84484; 85025; 93005; 96361; 96374; 99284; J2405; Q9967

== ENCOUNTER → 2020-10-17 | Outpatient (CLI) | payer MEDICARE, MEDICAID ==
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
== END ==
LOC: M PAIN 09:45
PROVIDERS: ATTEND Nurse Practitioner Family
DX: M79.18 Myalgia, other site (principal); F25.9 Schizoaffective disorder, unspecified; F32.9 Major depressive disorder, single episode, unspecified; F41.9 Anxiety disorder, unspecified; E55.9 Vitamin D deficiency, unspecified; E78.00 Pure hypercholesterolemia, unspecified; K44.9 Diaphragmatic hernia without obstruction or gangrene; I25.2 Old myocardial infarction; Z79.82 Long term (current) use of aspirin; Z79.899 Other long term (current) drug therapy; Z88.0 Allergy status to penicillin; Z88.5 Allergy status to narcotic agent; Z88.6 Allergy status to analgesic agent

== ENCOUNTER → 2020-10-24 | Outpatient (CLI) | payer MEDICARE, MEDICAID | LOC: M LABSMTC 09:49 | PROVIDERS: ATTEND Anesthesiology | DX: Z01.812 Encounter for preprocedural laboratory examination (principal); Z20.822 Contact with and (suspected) exposure to COVID-19 ==

== ENCOUNTER → 2020-10-29 | Outpatient (CLI) | payer MEDICARE ==
[~2020-10-29] MED LIST changes: +BUPIVACAINE HCL 0.25% 10ML VIAL As Ordered ONE; +BUPIVACAINE HCL 0.25% 30ML VIAL As Ordered ONE; +ISOVUE-M 300 61% 15ML VIAL As Ordered ONE; +LIDOCAINE 1% SDV 30ML VIAL As Ordered ONE; +NORCO, ANEXSIA 5/325MG TABLET (HYDROcodone/ACETAMINOPHEN) As Ordered ONE; +TRIAMCINOLONE ACETONIDE SUSP 40 MG/ML VIAL (J3301) As Ordered ONE
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
== END ==
LOC: M PAIN 08:30
PROVIDERS: ATTEND Anesthesiology
DX: M79.18 Myalgia, other site (principal); K21.9 Gastro-esophageal reflux disease without esophagitis; E55.9 Vitamin D deficiency, unspecified; I25.2 Old myocardial infarction; Z86.59 Personal history of other mental and behavioral disorders; Z88.0 Allergy status to penicillin; Z88.5 Allergy status to narcotic agent; Z88.6 Allergy status to analgesic agent; Z79.82 Long term (current) use of aspirin; Z79.899 Other long term (current) drug therapy
CPT/HCPCS: 20553; J3301

== ENCOUNTER → 2020-11-15 | Outpatient (CLI) | payer MEDICARE ==
[~2020-11-15] MED LIST changes: -BUPIVACAINE HCL 0.25% 10ML VIAL As Ordered ONE; -BUPIVACAINE HCL 0.25% 30ML VIAL As Ordered ONE; -ISOVUE-M 300 61% 15ML VIAL As Ordered ONE; -LIDOCAINE 1% SDV 30ML VIAL As Ordered ONE; -NORCO, ANEXSIA 5/325MG TABLET (HYDROcodone/ACETAMINOPHEN) As Ordered ONE; -TRIAMCINOLONE ACETONIDE SUSP 40 MG/ML VIAL (J3301) As Ordered ONE
--- NOTE | 2020-11-15 13:14 | REP ---
INDICATION: UNSPECIFIED ABDOMINAL PAIN. COMPARISON: Comparison radiograph September 28, 2020. TECHNIQUE: Supine and upright views of the abdomen. Two views. FINDINGS: There is a large amount of formed stool dilating and filling the proximal colon from cecum to descending segment. There is no visible stool in the rectum or distal most colon. This pattern is unchanged from comparison CT and radiographs September of 2020. No mass or organomegaly is seen. No evidence of free air. There is evidence of a hiatal hernia. IMPRESSION: Obstipation pattern with large amount of formed stool in the dilated colon to the level of mid descending colon. Hiatal hernia. <Electronically signed by Greg Lee > 11/15/20 1345
== END ==
LOC: M PLAIMG 12:23
PROVIDERS: ATTEND Nurse Practitioner Adult Health
DX: R10.9 Unspecified abdominal pain (principal); K44.9 Diaphragmatic hernia without obstruction or gangrene

== ENCOUNTER → 2020-11-27 | Outpatient (CLI) | payer MEDICARE ==
[~2020-11-27] MED LIST changes: +E-Z-GAS II EFFERVESCENT PACKET (SODIUM BICARB./CITRIC ACID/SIMETHICONE) As Ordered ONE; +E-Z-HD 98% w/w 340GM SUSP BTL As Ordered ONE; +E-Z-PAQUE 96% w/w SUSP 176GM BTL As Ordered ONE
--- NOTE | 2020-11-27 17:05 | REP ---
INDICATION: GERD. COMPARISON: None. TECHNIQUE: The procedure was performed under the direct supervision of Dr. Pereira. The images were reviewed with Dr. Pereira. Liquid barium and gas producing crystals were given in the erect position as well as liquid barium in the prone oblique position in order to perform a double contrast upper GI examination. A combination of fluoroscopy, spot films and last image hold technology was utilized. 1.2 minutes of fluoro time was utilized for this procedure. FINDINGS: The account executive trainee film shows no organomegaly or pathological masses. There is a large amount of formed stool from the cecum to the sigmoid. The oral and pharyngeal stages of deglutition are unremarkable. During esophageal transport there are tertiary waves demonstrated. There is no esophagitis, stricture or mucosal ring. There is a sliding-type hiatal hernia. There is gastroesophageal reflux demonstrated to above the level of the gilberto. The stomach dinero are normally outlined. The rugal folds are smooth and regular. There is no gastritis neoplasm or ulcer disease. The duodenal dinero are normally outlined. The mucosal folds are smooth and regular. There is no duodenitis pancreatitis peptic ulcer disease or neoplasm. The visualized portion of the proximal small bowel appears normal in course and caliber. IMPRESSION: 1. There is a large amount of formed stool from the cecum to the sigmoid. 2. Tertiary waves. 3. There is a sliding-type hiatal hernia. There is gastroesophageal reflux demonstrated to above the level of the gilberto. . <Electronically signed by Phil Matute > 11/27/20 165 <Electronically signed by Siddharth Pereira > 11/27/20 170
== END ==
LOC: M RAD 07:50
PROVIDERS: ATTEND Surgery
DX: K21.9 Gastro-esophageal reflux disease without esophagitis (principal); K44.9 Diaphragmatic hernia without obstruction or gangrene

== ENCOUNTER → 2021-01-03 | Outpatient (CLI) | payer MEDICARE, MEDICAID ==
[~2021-01-03] MED LIST changes: -CYMB60CA3 PO; +CYMB60CA4 PO; -E-Z-GAS II EFFERVESCENT PACKET (SODIUM BICARB./CITRIC ACID/SIMETHICONE) As Ordered ONE; -E-Z-HD 98% w/w 340GM SUSP BTL As Ordered ONE; -E-Z-PAQUE 96% w/w SUSP 176GM BTL As Ordered ONE
[2021-01-03 13:37] LABS: HEMATOCRIT 37.7 % (36.0-47.0); HEMOGLOBIN 11.4 g/dl (12.0-15.5); MEAN CORPUSCULAR HEMOGLOBIN 25.5 pg (27.0-33.0); MEAN CORPUSCULAR HGB CONC 30.2 g/dl (32.0-36.5); MEAN CORPUSCULAR VOLUME 84.3 fl (80.0-96.0); PLATELET COUNT, AUTOMATED 309 10^3/uL (150-450); RED BLOOD COUNT 4.47 10^6/uL (4.00-5.40); WHITE BLOOD COUNT 4.4 10^3/uL (4.0-10.0)
[2021-01-03 13:57] LABS: ALBUMIN 3.2 GM/DL (3.2-5.2); ALT/SGPT 15 U/L (12-78); BILIRUBIN,TOTAL 0.3 MG/DL (0.2-1.0); BLOOD UREA NITROGEN 8 MG/DL (7-18); CALCIUM LEVEL 9.2 MG/DL (8.8-10.2); CARBON DIOXIDE LEVEL 29 MEQ/L (21-32); CHLORIDE LEVEL 108 MEQ/L (98-107); CHOLESTEROL LEVEL 233 MG/DL (<200); CHOLESTEROL RISK RATIO 2.452 (<5); CREATININE FOR GFR 0.72 MG/DL (0.55-1.30); FERRITIN 8 NG/ML (8-252); GLOMERULAR FILTRATION RATE > 60.0 (>45); GLUCOSE, FASTING 91 MG/DL (70-100); HDL CHOLESTEROL 95 MG/DL (>40); IRON (FE) 36 UG/DL (50-170); LDL CHOLESTEROL 124 MG/DL (<100); NON-HDL-C 138 MG/DL; PERCENT SATURATION 9.1 % (13.2-45.0); POTASSIUM SERUM 4.5 MEQ/L (3.5-5.1); SODIUM LEVEL 141 MEQ/L (136-145); TOTAL IRON BINDING CAPACITY 396 UG/DL (250-450); TOTAL PROTEIN 6.9 GM/DL (6.4-8.2); TRIGLYCERIDES LEVEL 72 MG/DL (<150)
== END ==
LOC: M PLALAB 11:16
PROVIDERS: ATTEND Nurse Practitioner Adult Health
DX: K21.9 Gastro-esophageal reflux disease without esophagitis (principal); E55.9 Vitamin D deficiency, unspecified; D50.9 Iron deficiency anemia, unspecified; E78.2 Mixed hyperlipidemia; K59.00 Constipation, unspecified; K76.89 Other specified diseases of liver; K44.9 Diaphragmatic hernia without obstruction or gangrene; K42.9 Umbilical hernia without obstruction or gangrene; Z23 Encounter for immunization; F25.0 Schizoaffective disorder, bipolar type; M15.9 Polyosteoarthritis, unspecified; Z79.82 Long term (current) use of aspirin; Z79.899 Other long term (current) drug therapy
CPT/HCPCS: 36415; 80053; 80061; 82306; 82728; 83550; 85027; 90682; G0008

== ENCOUNTER 2021-01-11 09:43 | Outpatient (CLI) | payer MEDICARE, MEDICAID ==
[~2021-01-11] VITALS: Ht 147.3 cm; Wt 65.0 kg
[2021-01-11 10:01] VITALS: BP 102/72
[2021-01-11] MEDS ORDERED: IRON SUCROSE 25 MG in NS 25 ML IV ONE (10:30)
[2021-01-11] MEDS ORDERED: IRON SUCROSE 475 MG in NS 250 ML IV ONE (10:30)
[2021-01-11 12:15] VITALS: BP 114/71
[2021-01-11 13:15] VITALS: BP 99/53
[2021-01-11 14:30] VITALS: BP 101/63
[2021-01-11 15:40] VITALS: BP 121/68
== END 2021-01-11 15:40 | disposition home or self-care (01) ==
LOC: M INFU 09:43
PROVIDERS: ATTEND Nurse Practitioner Adult Health
DX: D50.9 Iron deficiency anemia, unspecified (principal); Z88.0 Allergy status to penicillin; Z88.5 Allergy status to narcotic agent; Z88.6 Allergy status to analgesic agent
CPT/HCPCS: 96365; 96366; J1756

== ENCOUNTER → 2021-01-31 | Outpatient (CLI) | payer MEDICARE | LOC: M PAIN 10:00 | PROVIDERS: ATTEND Anesthesiology | DX: M79.10 Myalgia, unspecified site (principal); M54.41 Lumbago with sciatica, right side; K21.9 Gastro-esophageal reflux disease without esophagitis; E55.9 Vitamin D deficiency, unspecified; Z86.59 Personal history of other mental and behavioral disorders; Z96.653 Presence of artificial knee joint, bilateral; Z96.612 Presence of left artificial shoulder joint; Z88.0 Allergy status to penicillin; Z88.5 Allergy status to narcotic agent; Z88.6 Allergy status to analgesic agent; Z79.82 Long term (current) use of aspirin; Z79.891 Long term (current) use of opiate analgesic; Z79.899 Other long term (current) drug therapy ==

== ENCOUNTER → 2021-03-04 | Outpatient (CLI) | payer MEDICARE, MEDICAID ==
--- NOTE | 2021-03-04 17:15 | REPVR ---
PROCEDURE INFORMATION: Exam: MR Lumbar Spine Without Contrast Exam date and time: 03/04/2021 9:42 AM Age: 65 years old Clinical indication: Low back pain; Additional info: Lbp TECHNIQUE: Imaging protocol: Multiplanar magnetic resonance images of the lumbar spine without intravenous contrast. COMPARISON: MRI-Spine, L.S. without con 07/03/2016 7:14 AM FINDINGS: Vertebrae: There is no fracture or listhesis. Marrow signal is within normal limits. Spinal cord: Normal signal. No cord compression. L1-L2: There is shallow disc bulging. There is mild facet hypertrophy. There is mild bilateral neural foraminal narrowing. L2-L3: There is shallow disc bulging. There is mild facet hypertrophy. There is mild right neural foraminal narrowing. L3-L4: There is shallow disc bulging. There is mild facet hypertrophy. There is mild right neural foraminal narrowing. L4-L5: There is diffuse disc bulging. There is beje-jz-vmeshqts facet and ligamentous hypertrophy. There is moderate canal stenosis. There is moderate bilateral neural foraminal narrowing. L5-S1: There is shallow disc bulging. There is mild facet hypertrophy. There is mild right neural foraminal narrowing. Soft tissues: Unremarkable. IMPRESSION: Degenerative disc disease and spondylosis. At L4/5, changes contribute to moderate acquired canal stenosis and moderate bilateral neural foraminal narrowing. Electronically signed by: Cris Bradley On 03/04/2021 17:14:27 PM
== END ==
LOC: M RAD 08:16
PROVIDERS: ATTEND Anesthesiology
DX: M51.26 Other intervertebral disc displacement, lumbar region (principal); M47.816 Spondylosis without myelopathy or radiculopathy, lumbar region; M48.061 Spinal stenosis, lumbar region without neurogenic claudication

== ENCOUNTER → 2021-03-06 | Outpatient (CLI) | payer MEDICARE, MEDICAID ==
--- NOTE | 2021-03-06 08:19 | REP ---
INDICATION: UNSPECIFIED ABDOMINAL PAIN. COMPARISON: 01/01/2018 TECHNIQUE: Two views of the abdomen and pelvis FINDINGS: Bowel gas pattern is nonspecific although mild fecal stasis and constipation cannot be excluded. No evidence for obstruction or perforation. No organomegaly. No significant foreign body. Skeletal structures demonstrate age-related changes. Small 3 mm calcification in the left hemipelvis represents phlebolith and unchanged compared with 01/01/2018. IMPRESSION: Nonspecific bowel gas pattern although mild fecal stasis and constipation cannot be excluded. <Electronically signed by Ken De León > 03/06/21 0892
== END ==
LOC: M RAD 07:27
PROVIDERS: ATTEND Nurse Practitioner Adult Health
DX: R10.9 Unspecified abdominal pain (principal)

== ENCOUNTER → 2021-03-07 | Outpatient (CLI) | payer MEDICARE ==
[~2021-03-07] MED LIST changes: -MONT10TA10 PO; +MONT10TA97 PO
== END ==
LOC: M LABSMTC 11:10
PROVIDERS: ATTEND Anesthesiology
DX: Z01.812 Encounter for preprocedural laboratory examination (principal); Z20.822 Contact with and (suspected) exposure to COVID-19

== ENCOUNTER → 2021-03-12 | Outpatient (CLI) | payer MEDICARE ==
[~2021-03-12] MED LIST changes: +BUPIVACAINE HCL 0.25% 10ML VIAL As Ordered ONE; +BUPIVACAINE HCL 0.25% 30ML VIAL As Ordered ONE; +MONT10TA10 PO; -MONT10TA97 PO; +NORCO, ANEXSIA 5/325MG TABLET (HYDROcodone/ACETAMINOPHEN) As Ordered ONE; +TRIAMCINOLONE ACETONIDE SUSP 40 MG/ML VIAL (J3301) As Ordered ONE
== END ==
LOC: M PAIN 13:20
PROVIDERS: ATTEND Anesthesiology
DX: M79.18 Myalgia, other site (principal); K21.9 Gastro-esophageal reflux disease without esophagitis; E55.9 Vitamin D deficiency, unspecified; Z86.59 Personal history of other mental and behavioral disorders; Z88.0 Allergy status to penicillin; Z88.5 Allergy status to narcotic agent; Z88.6 Allergy status to analgesic agent; Z79.82 Long term (current) use of aspirin; Z79.899 Other long term (current) drug therapy
CPT/HCPCS: 20552; J3301

== ENCOUNTER → 2021-04-03 | Outpatient (CLI) | payer MEDICARE ==
[~2021-04-03] MED LIST changes: -BUPIVACAINE HCL 0.25% 10ML VIAL As Ordered ONE; -BUPIVACAINE HCL 0.25% 30ML VIAL As Ordered ONE; -MONT10TA10 PO; +MONT10TA97 PO; -NORCO, ANEXSIA 5/325MG TABLET (HYDROcodone/ACETAMINOPHEN) As Ordered ONE; -TRIAMCINOLONE ACETONIDE SUSP 40 MG/ML VIAL (J3301) As Ordered ONE
== END ==
LOC: M RAD 13:48
PROVIDERS: ATTEND Nurse Practitioner Adult Health
DX: M16.0 Bilateral primary osteoarthritis of hip (principal); M25.551 Pain in right hip
CPT/HCPCS: 73502; G0463

== ENCOUNTER 2021-04-15 16:16 | Emergency (ER) | payer MEDICARE ==
[~2021-04-15] VITALS: Ht 147.3 cm; Wt 64.2 kg
[2021-04-16] MEDS ORDERED: ACETAMINOPHEN 325 MG TAB PO ONE (06:30)
[2021-04-16 08:00] VITALS: BP 120/72
== END 2021-04-16 09:37 | disposition home or self-care (01) ==
LOC: M ED 16:16
DX: S33.2XXA Dislocation of sacroiliac and sacrococcygeal joint, initial encounter (principal); R07.81 Pleurodynia; M25.512 Pain in left shoulder; W19.XXXA Unspecified fall, initial encounter; Y92.090 Kitchen in other non-institutional residence as the place of occurrence of the external cause; Y93.9 Activity, unspecified; Y99.9 Unspecified external cause status; Z86.73 Personal history of transient ischemic attack (TIA), and cerebral infarction without residual deficits; M85.88 Other specified disorders of bone density and structure, other site; M79.10 Myalgia, unspecified site; K21.9 Gastro-esophageal reflux disease without esophagitis; E55.9 Vitamin D deficiency, unspecified; Z79.82 Long term (current) use of aspirin; Z79.899 Other long term (current) drug therapy; Z88.0 Allergy status to penicillin; Z88.5 Allergy status to narcotic agent; Z88.6 Allergy status to analgesic agent; Z86.59 Personal history of other mental and behavioral disorders; Z96.653 Presence of artificial knee joint, bilateral; Z96.612 Presence of left artificial shoulder joint; Z79.891 Long term (current) use of opiate analgesic
CPT/HCPCS: 71101; 72220; 73030; 99283; G0463

== ENCOUNTER → 2021-04-15 | Outpatient (CLI) | payer MEDICARE ==
[~2021-04-15] MED LIST changes: -D31000TA2 PO; +VITA100093 PO
== END ==
LOC: M PAIN 13:30
PROVIDERS: ATTEND Nurse Practitioner Family
DX: M79.10 Myalgia, unspecified site (principal); K21.9 Gastro-esophageal reflux disease without esophagitis; E55.9 Vitamin D deficiency, unspecified; Z86.59 Personal history of other mental and behavioral disorders; Z96.653 Presence of artificial knee joint, bilateral; Z96.612 Presence of left artificial shoulder joint; Z88.0 Allergy status to penicillin; Z88.5 Allergy status to narcotic agent; Z88.6 Allergy status to analgesic agent; Z79.82 Long term (current) use of aspirin; Z79.891 Long term (current) use of opiate analgesic; Z79.899 Other long term (current) drug therapy

== ENCOUNTER 2021-05-15 08:57 | Outpatient (RCR) | payer MEDICAID, MEDICARE | END 2021-05-20 | LOC: M PT 08:57 | PROVIDERS: ATTEND Nurse Practitioner Adult Health | DX: S39.92XD Unspecified injury of lower back, subsequent encounter (principal); M54.2 Cervicalgia; M54.41 Lumbago with sciatica, right side; E55.9 Vitamin D deficiency, unspecified ==

== ENCOUNTER → 2021-05-20 | Outpatient (CLI) | payer MEDICARE, MEDICAID ==
[~2021-05-20] MED LIST changes: +LACT10SO3; +TIZA2TA
[2021-05-20 15:55] LABS: BASO # 0.1 10^3/uL (0.0-0.2); BASO % 1.2 % (0.0-1.0); EOS # 0.1 10^3/uL (0.0-0.5); EOS % 2.7 % (0.0-3.0); HEMATOCRIT 44.9 % (36.0-47.0); HEMOGLOBIN 13.8 g/dl (12.0-15.5); LYMPH # 1.9 10^3/uL (1.5-5.0); LYMPH % 36.7 % (24.0-44.0); MEAN CORPUSCULAR HEMOGLOBIN 27.9 pg (27.0-33.0); MEAN CORPUSCULAR HGB CONC 30.7 g/dl (32.0-36.5); MEAN CORPUSCULAR VOLUME 90.9 fl (80.0-96.0); MONO # 0.5 10^3/uL (0.0-0.8); MONO % 9.5 % (2.0-8.0); NEUTROPHILS # 2.6 10^3/uL (1.5-8.5); NEUTROPHILS % 49.5 % (36.0-66.0); PLATELET COUNT, AUTOMATED 294 10^3/uL (150-450); RED BLOOD COUNT 4.94 10^6/uL (4.00-5.40); WHITE BLOOD COUNT 5.2 10^3/uL (4.0-10.0)
[2021-05-20 18:25] LABS: ALBUMIN 3.7 GM/DL (3.2-5.2); ALT/SGPT 26 U/L (12-78); BILIRUBIN,TOTAL 0.3 MG/DL (0.2-1.0); BLOOD UREA NITROGEN 13 MG/DL (7-18); CALCIUM LEVEL 9.4 MG/DL (8.8-10.2); CARBON DIOXIDE LEVEL 30 MEQ/L (21-32); CHLORIDE LEVEL 107 MEQ/L (98-107); CREATININE FOR GFR 0.62 MG/DL (0.55-1.30); GLOMERULAR FILTRATION RATE > 60.0 (>45); GLUCOSE, FASTING 101 MG/DL (70-100); POTASSIUM SERUM 4.1 MEQ/L (3.5-5.1); SODIUM LEVEL 142 MEQ/L (136-145); TOTAL PROTEIN 7.3 GM/DL (6.4-8.2)
[2021-05-20 18:31] LABS: TOTAL 25(OH) VITAMIN D 33.4 NG/ML (30.0-100.0)
== END ==
LOC: M PLALAB 14:03
PROVIDERS: ATTEND Physician Assistant
DX: R42 Dizziness and giddiness (principal); R26.89 Other abnormalities of gait and mobility; R53.83 Other fatigue; E55.9 Vitamin D deficiency, unspecified

== ENCOUNTER 2021-05-30 10:50 | Emergency (ER) | payer MEDICAID, MEDICARE ==
[~2021-05-30] VITALS: Ht 147.3 cm; Wt 63.6 kg
[~2021-05-30 10:50] MED LIST changes: -LACT10SO3; -TIZA2TA
[2021-05-30] MEDS ORDERED: LACT10SO3 (11:03)
[2021-05-30] MEDS ORDERED: TIZA2TA (11:03)
[2021-05-30] MEDS ORDERED: ONDANSETRON 4MG/2ML VIAL IV ONE (12:00)
[2021-05-30] MEDS ORDERED: KETOROLAC 30 MG/ML 1ML VIAL IV ONE (12:00)
[2021-05-30 12:32] LABS: BASO # 0.1 10^3/uL (0.0-0.2); BASO % 1.5 % (0.0-1.0); EOS # 0.1 10^3/uL (0.0-0.5); EOS % 3.3 % (0.0-3.0); HEMATOCRIT 43.7 % (36.0-47.0); HEMOGLOBIN 13.8 g/dl (12.0-15.5); LYMPH # 1.6 10^3/uL (1.5-5.0); LYMPH % 38.8 % (24.0-44.0); MEAN CORPUSCULAR HEMOGLOBIN 27.8 pg (27.0-33.0); MEAN CORPUSCULAR HGB CONC 31.6 g/dl (32.0-36.5); MEAN CORPUSCULAR VOLUME 88.1 fl (80.0-96.0); MONO # 0.4 10^3/uL (0.0-0.8); NEUTROPHILS # 1.9 10^3/uL (1.5-8.5); NEUTROPHILS % 46.9 % (36.0-66.0); PLATELET COUNT, AUTOMATED 309 10^3/uL (150-450); RED BLOOD COUNT 4.96 10^6/uL (4.00-5.40)
[2021-05-30 12:42] LABS: INR 0.94
[2021-05-30 12:43] LABS: PARTIAL THROMBOPLASTIN TIME 52.3 SECONDS (25.9-37.0)
[2021-05-30 13:05] LABS: FREE T4 0.77 NG/DL (0.76-1.46); MAGNESIUM LEVEL 2.5 MG/DL (1.8-2.4); THYROID STIMULATING HORMONE 3.14 uIU/ML (0.358-3.740)
[2021-05-30 14:01] VITALS: BP 128/81
== END 2021-05-30 14:13 | disposition home or self-care (01) ==
LOC: M ED 10:50
DX: R51.9 Headache, unspecified (principal); M54.12 Radiculopathy, cervical region; E78.5 Hyperlipidemia, unspecified; F25.9 Schizoaffective disorder, unspecified; F32.A Depression, unspecified; F90.9 Attention-deficit hyperactivity disorder, unspecified type; K21.9 Gastro-esophageal reflux disease without esophagitis; J44.9 Chronic obstructive pulmonary disease, unspecified; M41.9 Scoliosis, unspecified; Z88.0 Allergy status to penicillin; Z88.6 Allergy status to analgesic agent; Z79.899 Other long term (current) drug therapy; Z79.82 Long term (current) use of aspirin
CPT/HCPCS: 70450; 72125; 80047; 83735; 84439; 84443; 85025; 85610; 85730; 93005; 96374; 96375; 99284; J1885; J2405

== ENCOUNTER → 2021-06-21 | Outpatient (CLI) | payer MEDICARE, MEDICAID ==
[~2021-06-21] MED LIST changes: +LACT10SO3; +TIZA2TA
[2021-06-21 08:12] LABS: HEMATOCRIT 41.9 % (36.0-47.0); HEMOGLOBIN 13.7 g/dl (12.0-15.5); MEAN CORPUSCULAR HEMOGLOBIN 29.1 pg (27.0-33.0); MEAN CORPUSCULAR HGB CONC 32.7 g/dl (32.0-36.5); MEAN CORPUSCULAR VOLUME 89.1 fl (80.0-96.0); PLATELET COUNT, AUTOMATED 274 10^3/uL (150-450); WHITE BLOOD COUNT 5.5 10^3/uL (4.0-10.0)
[2021-06-21 08:42] LABS: ALBUMIN 3.2 GM/DL (3.2-5.2); ALT/SGPT 20 U/L (12-78); BILIRUBIN,TOTAL 0.4 MG/DL (0.2-1.0); BLOOD UREA NITROGEN 11 MG/DL (7-18); CALCIUM LEVEL 9.7 MG/DL (8.8-10.2); CARBON DIOXIDE LEVEL 31 MEQ/L (21-32); CHLORIDE LEVEL 106 MEQ/L (98-107); CHOLESTEROL LEVEL 240 MG/DL (<200); CHOLESTEROL RISK RATIO 2.448 (<5); CREATININE FOR GFR 0.62 MG/DL (0.55-1.30); GLOMERULAR FILTRATION RATE > 60.0 (>45); GLUCOSE, FASTING 98 MG/DL (70-100); HDL CHOLESTEROL 98 MG/DL (>40); LDL CHOLESTEROL 129 MG/DL (<100); NON-HDL-C 142 MG/DL; SODIUM LEVEL 141 MEQ/L (136-145); TRIGLYCERIDES LEVEL 63 MG/DL (<150)
[2021-06-21 10:26] LABS: TOTAL 25(OH) VITAMIN D 34.7 NG/ML (30.0-100.0)
== END ==
LOC: M LAB 06:55
PROVIDERS: ATTEND Nurse Practitioner Adult Health
DX: Z00.00 Encounter for general adult medical examination without abnormal findings (principal); E78.2 Mixed hyperlipidemia; K21.9 Gastro-esophageal reflux disease without esophagitis; E55.9 Vitamin D deficiency, unspecified

== ENCOUNTER → 2021-07-11 | Outpatient (CLI) | payer MEDICAID, MEDICARE | LOC: M PLAIMG 08:49 | PROVIDERS: ATTEND Physician Assistant Surgical | DX: M46.02 Spinal enthesopathy, cervical region (principal); M50.222 Other cervical disc displacement at C5-C6 level; M47.812 Spondylosis without myelopathy or radiculopathy, cervical region ==

== ENCOUNTER → 2021-07-15 | Outpatient (CLI) | payer MEDICARE, MEDICAID | LOC: M PAIN 09:30 | PROVIDERS: ATTEND Nurse Practitioner Family | DX: M51.16 Intervertebral disc disorders with radiculopathy, lumbar region (principal); G89.29 Other chronic pain; K21.9 Gastro-esophageal reflux disease without esophagitis; E55.9 Vitamin D deficiency, unspecified; Z86.59 Personal history of other mental and behavioral disorders; Z96.653 Presence of artificial knee joint, bilateral; Z96.612 Presence of left artificial shoulder joint; Z88.0 Allergy status to penicillin; Z88.5 Allergy status to narcotic agent; Z88.6 Allergy status to analgesic agent; Z79.82 Long term (current) use of aspirin; Z79.891 Long term (current) use of opiate analgesic; Z79.899 Other long term (current) drug therapy ==

== ENCOUNTER → 2021-09-02 | Outpatient (CLI) | payer MEDICARE, MEDICAID ==
[~2021-09-02] MED LIST changes: +PRED10TA2 PO
== END ==
LOC: M PAIN 09:30
PROVIDERS: ATTEND Nurse Practitioner Family
DX: M51.16 Intervertebral disc disorders with radiculopathy, lumbar region (principal); G89.29 Other chronic pain; K21.9 Gastro-esophageal reflux disease without esophagitis; I25.2 Old myocardial infarction; Z86.59 Personal history of other mental and behavioral disorders; Z88.0 Allergy status to penicillin; Z88.5 Allergy status to narcotic agent; Z88.6 Allergy status to analgesic agent; Z79.82 Long term (current) use of aspirin; Z79.899 Other long term (current) drug therapy

== ENCOUNTER → 2021-09-09 | Outpatient (CLI) | payer MEDICARE, MEDICAID ==
[2021-09-09 16:16] LABS: HEMATOCRIT 41.6 % (36.0-47.0); HEMOGLOBIN 12.9 g/dl (12.0-15.5); MEAN CORPUSCULAR HEMOGLOBIN 29.1 pg (27.0-33.0); MEAN CORPUSCULAR VOLUME 93.7 fl (80.0-96.0); PLATELET COUNT, AUTOMATED 333 10^3/uL (150-450); RED BLOOD COUNT 4.44 10^6/uL (4.00-5.40); WHITE BLOOD COUNT 4.8 10^3/uL (4.0-10.0)
[2021-09-09 16:38] LABS: ALBUMIN 3.3 GM/DL (3.2-5.2); ALT/SGPT 18 U/L (12-78); BILIRUBIN,TOTAL 0.2 MG/DL (0.2-1.0); BLOOD UREA NITROGEN 13 MG/DL (7-18); CALCIUM LEVEL 9.3 MG/DL (8.8-10.2); CARBON DIOXIDE LEVEL 28 MEQ/L (21-32); CHLORIDE LEVEL 107 MEQ/L (98-107); CREATININE FOR GFR 0.62 MG/DL (0.55-1.30); FERRITIN 15 NG/ML (8-252); GLOMERULAR FILTRATION RATE > 60.0 (>45); GLUCOSE, FASTING 101 MG/DL (70-100); IRON (FE) 63 UG/DL (50-170); PERCENT SATURATION 18.6 % (13.2-45.0); POTASSIUM SERUM 4.6 MEQ/L (3.5-5.1); SODIUM LEVEL 141 MEQ/L (136-145); TOTAL IRON BINDING CAPACITY 338 UG/DL (250-450); TOTAL PROTEIN 6.9 GM/DL (6.4-8.2)
[2021-09-09 16:45] LABS: TOTAL 25(OH) VITAMIN D 35.1 NG/ML (30.0-100.0)
== END ==
LOC: M PLALAB 06-19 11:09
PROVIDERS: ATTEND Nurse Practitioner Adult Health
DX: E55.9 Vitamin D deficiency, unspecified (principal); T14.8XXA Other injury of unspecified body region, initial encounter; Z79.899 Other long term (current) drug therapy

== ENCOUNTER 2021-09-11 13:06 | Emergency (ER) | payer MEDICARE, MEDICAID ==
[~2021-09-11] VITALS: Ht 147.3 cm; Wt 64.5 kg
[~2021-09-11 13:06] MED LIST changes: -PRED10TA2 PO
[2021-09-11] MEDS ORDERED: KETOROLAC 60MG 2ML VIAL IM ONE (14:55)
[2021-09-11] MEDS ORDERED: PRED10TA2 PO (15:41)
[2021-09-11 15:51] VITALS: BP 116/78
== END 2021-09-11 15:52 | disposition home or self-care (01) ==
LOC: M ED 13:06
DX: M54.31 Sciatica, right side (principal); Z88.0 Allergy status to penicillin; Z88.6 Allergy status to analgesic agent; Z79.899 Other long term (current) drug therapy
CPT/HCPCS: 96372; 99283; J1885

== ENCOUNTER → 2021-09-26 | Outpatient (CLI) | payer MEDICARE, MEDICAID ==
[~2021-09-26] MED LIST changes: +PRED10TA2 PO
== END ==
LOC: M WUC 11:33
PROVIDERS: ATTEND Physician Assistant
DX: M25.571 Pain in right ankle and joints of right foot (principal); M25.561 Pain in right knee

== ENCOUNTER → 2021-09-27 | Outpatient (CLI) | payer MEDICARE, MEDICAID | LOC: M WHC 11:07 | PROVIDERS: ATTEND Nurse Practitioner Adult Health | DX: Z12.31 Encounter for screening mammogram for malignant neoplasm of breast (principal); Z78.0 Asymptomatic menopausal state ==

== ENCOUNTER → 2021-10-07 | Outpatient (CLI) | payer MEDICARE, MEDICAID ==
[~2021-10-07] MED LIST changes: +LEVO1TAB40 PO; -LEVO750T13 PO
== END ==
LOC: M PLAIMG 10:03
PROVIDERS: ATTEND Internal Medicine Hematology
DX: Z01.810 Encounter for preprocedural cardiovascular examination (principal); I51.7 Cardiomegaly; M50.30 Other cervical disc degeneration, unspecified cervical region; J20.9 Acute bronchitis, unspecified

== ENCOUNTER 2021-10-23 10:12 | Emergency (ER) | payer MEDICARE, MEDICAID ==
[~2021-10-23] VITALS: Ht 147.3 cm; Wt 63.2 kg
[2021-10-23 10:28] VITALS: BP 133/75
[2021-10-23] MEDS ORDERED: MORPHINE 15 MG SA TAB PO ONE (14:35)
[2021-10-23] MEDS ORDERED: PERCOCET 5MG/325MG TAB PO ONE (14:45)
[2021-10-23] MEDS ORDERED: PERC5TAB12 PO (14:50)
== END 2021-10-23 15:32 | disposition home or self-care (01) ==
LOC: M ED 10:12
DX: S02.2XXA Fracture of nasal bones, initial encounter for closed fracture (principal); W19.XXXA Unspecified fall, initial encounter; Y92.410 Unspecified street and highway as the place of occurrence of the external cause; Z79.899 Other long term (current) drug therapy; Z88.0 Allergy status to penicillin; Z88.5 Allergy status to narcotic agent; Z88.6 Allergy status to analgesic agent

== ENCOUNTER → 2021-12-20 | Outpatient (CLI) | payer MEDICARE, MEDICAID | LOC: M PAIN 10:15 | PROVIDERS: ATTEND Nurse Practitioner Family | DX: M79.10 Myalgia, unspecified site (principal); G89.29 Other chronic pain; K21.9 Gastro-esophageal reflux disease without esophagitis; E55.9 Vitamin D deficiency, unspecified; I25.2 Old myocardial infarction; Z86.59 Personal history of other mental and behavioral disorders; Z88.0 Allergy status to penicillin; Z88.5 Allergy status to narcotic agent; Z88.6 Allergy status to analgesic agent; Z79.899 Other long term (current) drug therapy ==

== ENCOUNTER → 2021-12-23 | Outpatient (CLI) | payer MEDICARE, MEDICAID | LOC: M PLALAB 11:18 | PROVIDERS: ATTEND Nurse Practitioner Adult Health | DX: R07.81 Pleurodynia (principal) ==

== ENCOUNTER → 2022-02-04 | Outpatient (CLI) | payer MEDICARE, MEDICAID ==
[~2022-02-04] MED LIST changes: -QUET300T53 PO; +QUET300T93 PO; -QUET50TA48 PO; +QUET50TA67 PO
== END ==
LOC: M LABSMTC 10:03
PROVIDERS: ATTEND Anesthesiology
DX: Z01.812 Encounter for preprocedural laboratory examination (principal); Z20.822 Contact with and (suspected) exposure to COVID-19

== ENCOUNTER 2022-02-11 07:35 | Outpatient (RCR) | payer MEDICARE, MEDICAID | END 2022-02-19 | LOC: M PT 07:35 | PROVIDERS: ATTEND Nurse Practitioner | DX: M54.2 Cervicalgia (principal); G89.29 Other chronic pain; R20.0 Anesthesia of skin; R20.2 Paresthesia of skin ==

== ENCOUNTER → 2022-02-25 | Outpatient (CLI) | payer MEDICARE, MEDICAID | LOC: M PLAIMG 10:11 | PROVIDERS: ATTEND Nurse Practitioner Adult Health | DX: R93.89 Abnormal findings on diagnostic imaging of other specified body structures (principal); J47.9 Bronchiectasis, uncomplicated; K21.9 Gastro-esophageal reflux disease without esophagitis; R14.0 Abdominal distension (gaseous); R91.8 Other nonspecific abnormal finding of lung field; J84.10 Pulmonary fibrosis, unspecified; K44.9 Diaphragmatic hernia without obstruction or gangrene; K76.89 Other specified diseases of liver; S22.41XD Multiple fractures of ribs, right side, subsequent encounter for fracture with routine healing ==

== ENCOUNTER → 2022-03-03 | Outpatient (CLI) | payer MEDICARE, MEDICAID | LOC: M LABSMTC 10:39 | PROVIDERS: ATTEND Anesthesiology | DX: Z01.812 Encounter for preprocedural laboratory examination (principal); Z20.822 Contact with and (suspected) exposure to COVID-19 ==

== ENCOUNTER → 2022-03-04 | Outpatient (CLI) | payer MEDICARE, MEDICAID ==
[~2022-03-04] MED LIST changes: +BUPIVACAINE HCL 0.25% 10ML VIAL As Ordered ONE; +BUPIVACAINE HCL 0.25% 30ML VIAL As Ordered ONE; +NORCO, ANEXSIA 5/325MG TABLET (HYDROcodone/ACETAMINOPHEN) As Ordered ONE; +TRIAMCINOLONE ACETONIDE SUSP 40MG/ML 1ML VIAL As Ordered ONE
== END ==
LOC: M PAIN 09:15
PROVIDERS: ATTEND Anesthesiology
DX: M79.18 Myalgia, other site (principal); G89.29 Other chronic pain; K21.9 Gastro-esophageal reflux disease without esophagitis; E55.9 Vitamin D deficiency, unspecified; I25.2 Old myocardial infarction; Z86.59 Personal history of other mental and behavioral disorders; Z96.653 Presence of artificial knee joint, bilateral; Z96.612 Presence of left artificial shoulder joint; Z88.0 Allergy status to penicillin; Z88.5 Allergy status to narcotic agent; Z88.6 Allergy status to analgesic agent; Z79.899 Other long term (current) drug therapy
CPT/HCPCS: 20553; J3301

== ENCOUNTER 2022-03-20 10:32 | Outpatient (RCR) | payer MEDICARE, MEDICAID ==
[~2022-03-20 10:32] MED LIST changes: -BUPIVACAINE HCL 0.25% 10ML VIAL As Ordered ONE; -BUPIVACAINE HCL 0.25% 30ML VIAL As Ordered ONE; -NORCO, ANEXSIA 5/325MG TABLET (HYDROcodone/ACETAMINOPHEN) As Ordered ONE; -TRIAMCINOLONE ACETONIDE SUSP 40MG/ML 1ML VIAL As Ordered ONE
== END 2022-03-22 ==
LOC: M PT 10:32
PROVIDERS: ATTEND Nurse Practitioner
DX: M50.30 Other cervical disc degeneration, unspecified cervical region (principal); G89.29 Other chronic pain; R20.0 Anesthesia of skin; R20.2 Paresthesia of skin

== ENCOUNTER → 2022-04-25 | Outpatient (CLI) | payer MEDICARE, MEDICAID | LOC: M RAD 11:50 | PROVIDERS: ATTEND Nurse Practitioner Family | DX: M53.3 Sacrococcygeal disorders, not elsewhere classified (principal); M16.0 Bilateral primary osteoarthritis of hip; M47.818 Spondylosis without myelopathy or radiculopathy, sacral and sacrococcygeal region ==

== ENCOUNTER → 2022-04-25 | Outpatient (CLI) | payer MEDICARE, MEDICAID | LOC: M PAIN 11:00 | PROVIDERS: ATTEND Nurse Practitioner Family | DX: M53.3 Sacrococcygeal disorders, not elsewhere classified (principal); G89.29 Other chronic pain; M79.10 Myalgia, unspecified site; K21.9 Gastro-esophageal reflux disease without esophagitis; E55.9 Vitamin D deficiency, unspecified; I25.2 Old myocardial infarction; Z86.59 Personal history of other mental and behavioral disorders; Z88.0 Allergy status to penicillin; Z88.5 Allergy status to narcotic agent; Z88.6 Allergy status to analgesic agent; Z79.899 Other long term (current) drug therapy | CPT/HCPCS: 72190; G0463 ==

== ENCOUNTER → 2022-05-07 | Outpatient (REF) | payer MEDICARE, MEDICAID | LOC: M PLALAB 07:37 | PROVIDERS: ATTEND Advanced Practice Midwife | DX: Z12.4 Encounter for screening for malignant neoplasm of cervix (principal); Z53.9 Procedure and treatment not carried out, unspecified reason ==

== ENCOUNTER → 2022-05-23 | Outpatient (CLI) | payer MEDICARE, MEDICAID | LOC: M PLAIMG 12:36 | PROVIDERS: ATTEND Nurse Practitioner Family | DX: M46.1 Sacroiliitis, not elsewhere classified (principal); K42.9 Umbilical hernia without obstruction or gangrene; M85.88 Other specified disorders of bone density and structure, other site ==

== ENCOUNTER → 2022-06-20 | Outpatient (CLI) | payer MEDICARE, MEDICAID | LOC: M PAIN 09:45 | PROVIDERS: ATTEND Nurse Practitioner Family | DX: M79.10 Myalgia, unspecified site (principal); G89.29 Other chronic pain; K21.9 Gastro-esophageal reflux disease without esophagitis; E55.9 Vitamin D deficiency, unspecified; I25.2 Old myocardial infarction; Z86.59 Personal history of other mental and behavioral disorders; Z88.0 Allergy status to penicillin; Z88.5 Allergy status to narcotic agent; Z88.6 Allergy status to analgesic agent; Z79.899 Other long term (current) drug therapy ==

== ENCOUNTER → 2022-07-04 | Outpatient (CLI) | payer MEDICARE, MEDICAID | LOC: M PAIN 10:00 | PROVIDERS: ATTEND Nurse Practitioner Family | DX: Z79.891 Long term (current) use of opiate analgesic (principal) ==

== ENCOUNTER → 2022-07-16 | Outpatient (REF) | payer MEDICARE, MEDICAID | LOC: M SFHCWAGY 17:34 | PROVIDERS: ATTEND Specialist | DX: Z01.419 Encounter for gynecological examination (general) (routine) without abnormal findings (principal); N95.8 Other specified menopausal and perimenopausal disorders ==

== ENCOUNTER → 2022-07-24 | Outpatient (CLI) | payer MEDICARE ==
[2022-07-24 17:28] LABS: BASO # 0.1 10^3/uL (0.0-0.2); EOS # 0.2 10^3/uL (0.0-0.5); EOS % 2.9 % (0.0-3.0); HEMATOCRIT 42.7 % (36.0-47.0); HEMOGLOBIN 12.8 g/dl (12.0-15.5); LYMPH # 2.1 10^3/uL (1.5-5.0); LYMPH % 38.5 % (24.0-44.0); MEAN CORPUSCULAR HEMOGLOBIN 27.9 pg (27.0-33.0); MEAN CORPUSCULAR VOLUME 93.2 fl (80.0-96.0); MONO # 0.5 10^3/uL (0.0-0.8); MONO % 9.7 % (2.0-8.0); NEUTROPHILS # 2.6 10^3/uL (1.5-8.5); NEUTROPHILS % 46.5 % (36.0-66.0); PLATELET COUNT, AUTOMATED 343 10^3/uL (150-450); RED BLOOD COUNT 4.58 10^6/uL (4.00-5.40); WHITE BLOOD COUNT 5.5 10^3/uL (4.0-10.0)
[2022-07-24 17:43] LABS: ALBUMIN 3.4 G/DL (3.2-5.2); ALKALINE PHOSPHATASE 174 U/L (46-116); ALT/SGPT < 9 U/L (7.0-40); AST/SGOT 18 U/L (<34); BILIRUBIN,TOTAL 0.2 MG/DL (0.3-1.2); BLOOD UREA NITROGEN 14 MG/DL (9-23); CALCIUM LEVEL 9.2 MG/DL (8.3-10.6); CARBON DIOXIDE LEVEL 32 MMOL/L (20-31); CHLORIDE LEVEL 103 MMOL/L (98-107); CREATININE FOR GFR 0.64 MG/DL (0.55-1.30); GLOMERULAR FILTRATION RATE > 60.0 (>45); GLUCOSE, FASTING 96 MG/DL (74-106); POTASSIUM SERUM 4.6 MMOL/L (3.5-5.1); SODIUM LEVEL 140 MMOL/L (136-145); TOTAL PROTEIN 6.7 G/DL (5.7-8.2)
[2022-07-24 17:44] LABS: FERRITIN 11.6 NG/ML (7.3-270.7); FREE T4 0.73 NG/DL (0.89-1.76); THYROID STIMULATING HORMONE 4.014 uIU/ML (0.55-4.78)
[2022-07-24 17:56] LABS: INR 0.94; PROTHROMBIN TIME 12.8 SECONDS (12.5-14.5)
[2022-07-24 18:54] LABS: HEMOGLOBIN A1c 5.6 % (4.0-6.0)
== END ==
LOC: M PLALAB 15:19
PROVIDERS: ATTEND Family Medicine
DX: D50.9 Iron deficiency anemia, unspecified (principal); F25.0 Schizoaffective disorder, bipolar type; R73.01 Impaired fasting glucose; Z79.899 Other long term (current) drug therapy

== ENCOUNTER → 2022-08-19 | Outpatient (CLI) | payer MEDICARE | LOC: M WUC 13:14 | PROVIDERS: ATTEND Nurse Practitioner Family | DX: R05.9 Cough, unspecified (principal); R06.02 Shortness of breath; R91.8 Other nonspecific abnormal finding of lung field; Z96.612 Presence of left artificial shoulder joint ==

== ENCOUNTER → 2022-08-22 | Outpatient (CLI) | payer MEDICARE ==
[2022-08-22 13:22] LABS: BASO # 0.1 10^3/uL (0.0-0.2); BASO % 1.2 % (0.0-1.0); EOS % 0.4 % (0.0-3.0); HEMATOCRIT 38.6 % (36.0-47.0); HEMOGLOBIN 11.7 g/dl (12.0-15.5); LYMPH # 2.3 10^3/uL (1.5-5.0); LYMPH % 20.4 % (24.0-44.0); MEAN CORPUSCULAR HEMOGLOBIN 27.5 pg (27.0-33.0); MEAN CORPUSCULAR HGB CONC 30.3 g/dl (32.0-36.5); MEAN CORPUSCULAR VOLUME 90.6 fl (80.0-96.0); MONO # 0.8 10^3/uL (0.0-0.8); MONO % 6.6 % (2.0-8.0); NEUTROPHILS # 7.4 10^3/uL (1.5-8.5); NEUTROPHILS % 64.8 % (36.0-66.0); PLATELET COUNT, AUTOMATED 586 10^3/uL (150-450); RED BLOOD COUNT 4.26 10^6/uL (4.00-5.40); WHITE BLOOD COUNT 11.4 10^3/uL (4.0-10.0)
[2022-08-22 13:41] LABS: ALBUMIN 2.7 G/DL (3.2-5.2); ALKALINE PHOSPHATASE 302 U/L (46-116); ALT/SGPT 18 U/L (7.0-40); AST/SGOT 17 U/L (<34); BILIRUBIN,TOTAL 0.2 MG/DL (0.3-1.2); BLOOD UREA NITROGEN 15 MG/DL (9-23); CALCIUM LEVEL 8.6 MG/DL (8.3-10.6); CARBON DIOXIDE LEVEL 30 MMOL/L (20-31); CHLORIDE LEVEL 106 MMOL/L (98-107); CREATININE FOR GFR 0.59 MG/DL (0.55-1.30); GLOMERULAR FILTRATION RATE > 60.0 (>45); GLUCOSE, FASTING 100 MG/DL (74-106); POTASSIUM SERUM 3.5 MMOL/L (3.5-5.1); SODIUM LEVEL 141 MMOL/L (136-145); TOTAL PROTEIN 6.4 G/DL (5.7-8.2)
[2022-08-22 13:58] LABS: ERYTHROCYTE SEDIMENTATION RATE 81 mm/hr (0-30)
== END ==
LOC: M PLALAB 09:41
PROVIDERS: ATTEND Physician Assistant
DX: J18.9 Pneumonia, unspecified organism (principal); R53.83 Other fatigue; R68.83 Chills (without fever)

== ENCOUNTER → 2022-11-06 | Outpatient (CLI) | payer MEDICARE ==
[~2022-11-06] MED LIST changes: +NORCO, ANEXSIA 5/325MG TABLET (HYDROcodone/ACETAMINOPHEN) As Ordered ONE; +TRIAMCINOLONE ACETONIDE SUSP 40MG/ML 1ML VIAL As Ordered ONE
== END ==
LOC: M PAIN 09:30
PROVIDERS: ATTEND Anesthesiology
DX: M79.18 Myalgia, other site (principal); G89.29 Other chronic pain; K21.9 Gastro-esophageal reflux disease without esophagitis; E55.9 Vitamin D deficiency, unspecified; Z86.59 Personal history of other mental and behavioral disorders; Z88.0 Allergy status to penicillin; Z88.5 Allergy status to narcotic agent; Z88.6 Allergy status to analgesic agent; Z79.899 Other long term (current) drug therapy
CPT/HCPCS: 20552; J0665; J3301

== ENCOUNTER → 2023-01-26 | Outpatient (CLI) | payer MEDICARE, MEDICAID ==
[~2023-01-26] MED LIST changes: +MECL-209 PO; -MECL1TAB31 PO; -NORCO, ANEXSIA 5/325MG TABLET (HYDROcodone/ACETAMINOPHEN) As Ordered ONE; -TRIAMCINOLONE ACETONIDE SUSP 40MG/ML 1ML VIAL As Ordered ONE
[2023-01-26 14:37] LABS: HEMATOCRIT 40.1 % (36.0-47.0); HEMOGLOBIN 12.5 g/dl (12.0-15.5); MEAN CORPUSCULAR HEMOGLOBIN 28.5 pg (27.0-33.0); MEAN CORPUSCULAR HGB CONC 31.2 g/dl (32.0-36.5); MEAN CORPUSCULAR VOLUME 91.6 fl (80.0-96.0); PLATELET COUNT, AUTOMATED 294 10^3/uL (150-450); RED BLOOD COUNT 4.38 10^6/uL (4.00-5.40); WHITE BLOOD COUNT 4.4 10^3/uL (4.0-10.0)
[2023-01-26 14:47] LABS: HEMOGLOBIN A1c 5.7 % (4.0-6.0)
[2023-01-26 15:11] LABS: ALBUMIN 3.3 G/DL (3.2-5.2); ALKALINE PHOSPHATASE 157 U/L (46-116); ALT/SGPT < 9 U/L (7.0-40); AST/SGOT 14 U/L (<34); BILIRUBIN,TOTAL 0.4 MG/DL (0.3-1.2); BLOOD UREA NITROGEN 12 MG/DL (9-23); CALCIUM LEVEL 8.9 MG/DL (8.3-10.6); CARBON DIOXIDE LEVEL 28 MMOL/L (20-31); CHLORIDE LEVEL 102 MMOL/L (98-107); CHOLESTEROL LEVEL 233 MG/DL (<200); CREATININE FOR GFR 0.61 MG/DL (0.55-1.30); GLOMERULAR FILTRATION RATE > 60.0 (>45); GLUCOSE, FASTING 81 MG/DL (74-106); HDL CHOLESTEROL 77.6 MG/DL (>40); LDL CHOLESTEROL 142.2 MG/DL (<100); NON-HDL-C 155.4 MG/DL; SODIUM LEVEL 138 MMOL/L (136-145); TOTAL 25(OH) VITAMIN D 42.3 NG/ML (20.0-100.0); TOTAL PROTEIN 6.4 G/DL (5.7-8.2); TRIGLYCERIDES LEVEL 66 MG/DL (<150)
== END ==
LOC: M PLALAB 09:34
PROVIDERS: ATTEND Nurse Practitioner Adult Health
DX: E55.9 Vitamin D deficiency, unspecified (principal); T14.8XXA Other injury of unspecified body region, initial encounter; D50.9 Iron deficiency anemia, unspecified; R73.01 Impaired fasting glucose; E78.2 Mixed hyperlipidemia

== ENCOUNTER → 2023-02-03 | Outpatient (CLI) | payer MEDICARE, MEDICAID | LOC: M WHC 15:17 | PROVIDERS: ATTEND Nurse Practitioner Adult Health | DX: Z12.31 Encounter for screening mammogram for malignant neoplasm of breast (principal); R92.323 Mammographic fibroglandular density, bilateral breasts ==

== ENCOUNTER → 2023-03-19 | Outpatient (CLI) | payer MEDICARE, MEDICAID | LOC: M PAIN 16:30 | PROVIDERS: ATTEND Nurse Practitioner Family | DX: M79.10 Myalgia, unspecified site (principal); G89.29 Other chronic pain; Z88.0 Allergy status to penicillin; Z88.5 Allergy status to narcotic agent; Z88.6 Allergy status to analgesic agent; Z79.899 Other long term (current) drug therapy ==

== ENCOUNTER → 2023-03-26 | Outpatient (CLI) | payer MEDICARE, MEDICAID | LOC: M PLAIMG 15:28 | PROVIDERS: ATTEND Nurse Practitioner Adult Health | DX: R10.9 Unspecified abdominal pain (principal); Z86.16 Personal history of COVID-19 ==

== ENCOUNTER → 2023-07-21 | Outpatient (CLI) | payer MEDICARE, MEDICAID ==
[~2023-07-21] MED LIST changes: +NORCO, ANEXSIA 5/325MG TABLET (HYDROcodone/ACETAMINOPHEN) As Ordered ONE
== END ==
LOC: M PAIN 15:00
PROVIDERS: ATTEND Anesthesiology
DX: G89.29 Other chronic pain (principal); M79.18 Myalgia, other site; K21.9 Gastro-esophageal reflux disease without esophagitis; E55.9 Vitamin D deficiency, unspecified; E78.5 Hyperlipidemia, unspecified; Z79.899 Other long term (current) drug therapy; M75.02 Adhesive capsulitis of left shoulder; K44.9 Diaphragmatic hernia without obstruction or gangrene; M15.0 Primary generalized (osteo)arthritis; F25.0 Schizoaffective disorder, bipolar type; M54.31 Sciatica, right side; M48.061 Spinal stenosis, lumbar region without neurogenic claudication; D50.9 Iron deficiency anemia, unspecified; R73.01 Impaired fasting glucose; M54.12 Radiculopathy, cervical region; M79.645 Pain in left finger(s); R09.81 Nasal congestion; J01.10 Acute frontal sinusitis, unspecified; J30.9 Allergic rhinitis, unspecified; E78.2 Mixed hyperlipidemia; Z78.0 Asymptomatic menopausal state; Z87.19 Personal history of other diseases of the digestive system
CPT/HCPCS: 20552; 87486; 87581; 87633; 87798; G0463; J0665

== ENCOUNTER → 2023-07-21 | Outpatient (REF) | payer MEDICARE, MEDICAID ==
[~2023-07-21] MED LIST changes: -NORCO, ANEXSIA 5/325MG TABLET (HYDROcodone/ACETAMINOPHEN) As Ordered ONE
== END ==
LOC: M SFHCPLAZ 12:28
PROVIDERS: ATTEND Nurse Practitioner Adult Health
DX: R09.81 Nasal congestion (principal)

== ENCOUNTER → 2023-07-29 | Outpatient (CLI) | payer MEDICARE, MEDICAID ==
[2023-07-29 15:33] LABS: BASO # 0.1 10^3/uL (0.0-0.2); BASO % 1.5 % (0.0-1.0); EOS # 0.2 10^3/uL (0.0-0.5); EOS % 3.7 % (0.0-3.0); HEMATOCRIT 40.2 % (36.0-47.0); HEMOGLOBIN 12.6 g/dl (12.0-15.5); LYMPH # 1.6 10^3/uL (1.5-5.0); LYMPH % 34.4 % (24.0-44.0); MEAN CORPUSCULAR HGB CONC 31.3 g/dl (32.0-36.5); MEAN CORPUSCULAR VOLUME 92.4 fl (80.0-96.0); MONO # 0.5 10^3/uL (0.0-0.8); MONO % 11.2 % (2.0-8.0); NEUTROPHILS # 2.2 10^3/uL (1.5-8.5); NEUTROPHILS % 48.8 % (36.0-66.0); PLATELET COUNT, AUTOMATED 305 10^3/uL (150-450); RED BLOOD COUNT 4.35 10^6/uL (4.00-5.40); WHITE BLOOD COUNT 4.5 10^3/uL (4.0-10.0)
[2023-07-29 16:05] LABS: BLOOD UREA NITROGEN 16 MG/DL (9-23); CARBON DIOXIDE LEVEL 32 MMOL/L (20-31); CHLORIDE LEVEL 105 MMOL/L (98-107); CREATININE FOR GFR 0.73 MG/DL (0.55-1.30); GLOMERULAR FILTRATION RATE > 60.0 (>45); GLUCOSE, FASTING 81 MG/DL (74-106); POTASSIUM SERUM 4.4 MMOL/L (3.5-5.1); SODIUM LEVEL 141 MMOL/L (136-145)
== END ==
LOC: M PLALAB 09:35
PROVIDERS: ATTEND Family Medicine
DX: Z01.810 Encounter for preprocedural cardiovascular examination (principal); R09.89 Other specified symptoms and signs involving the circulatory and respiratory systems

== ENCOUNTER → 2023-08-19 | Outpatient (CLI) | payer MEDICARE, MEDICAID ==
[~2023-08-19] MED LIST changes: +ONDA-282 PO; -ONDA4TAB6 PO
== END ==
LOC: M PAIN 13:30
PROVIDERS: ATTEND Anesthesiology
DX: M79.18 Myalgia, other site (principal); M54.50 Low back pain, unspecified; G89.29 Other chronic pain; F25.9 Schizoaffective disorder, unspecified; K21.9 Gastro-esophageal reflux disease without esophagitis; E55.9 Vitamin D deficiency, unspecified; E78.2 Mixed hyperlipidemia; K44.9 Diaphragmatic hernia without obstruction or gangrene; K59.09 Other constipation; Z79.899 Other long term (current) drug therapy; Z88.0 Allergy status to penicillin; Z88.5 Allergy status to narcotic agent; Z88.6 Allergy status to analgesic agent

== ENCOUNTER 2023-10-05 16:51 | Emergency (ER) | payer MEDICARE, MEDICAID ==
[~2023-10-05] VITALS: Ht 147.3 cm; Wt 62.4 kg
[2023-10-05 16:53] VITALS: BP 127/84; TEMP 98.7; O2SAT 96
== END 2023-10-05 20:48 | disposition left against medical advice (07) ==
LOC: M ED 16:51
DX: Z53.21 Procedure and treatment not carried out due to patient leaving prior to being seen by health care provider (principal)

== ENCOUNTER → 2023-12-18 | Outpatient (CLI) | payer MEDICARE, MEDICAID | LOC: M PAIN 15:30 | PROVIDERS: ATTEND Nurse Practitioner Family | DX: M79.18 Myalgia, other site (principal); K21.9 Gastro-esophageal reflux disease without esophagitis; E55.9 Vitamin D deficiency, unspecified; E78.5 Hyperlipidemia, unspecified; K59.09 Other constipation; Z79.899 Other long term (current) drug therapy; Z88.0 Allergy status to penicillin; Z88.5 Allergy status to narcotic agent; Z88.6 Allergy status to analgesic agent ==

== ENCOUNTER → 2024-01-15 | Outpatient (CLI) | payer MEDICARE, MEDICAID ==
[~2024-01-15] MED LIST changes: -LACT10SO3; +LACT10SO94; -LEVO750T14 PO; +LEVO75TAB PO
== END ==
LOC: M PAIN 15:30
PROVIDERS: ATTEND Nurse Practitioner Family
DX: M79.18 Myalgia, other site (principal); G89.29 Other chronic pain; M54.50 Low back pain, unspecified; F25.9 Schizoaffective disorder, unspecified; K21.9 Gastro-esophageal reflux disease without esophagitis; E55.9 Vitamin D deficiency, unspecified; E78.5 Hyperlipidemia, unspecified; M48.061 Spinal stenosis, lumbar region without neurogenic claudication; K59.09 Other constipation; Z79.899 Other long term (current) drug therapy; Z88.0 Allergy status to penicillin; Z88.5 Allergy status to narcotic agent; Z88.6 Allergy status to analgesic agent

== ENCOUNTER → 2024-01-21 | Outpatient (CLI) | payer MEDICARE, MEDICAID ==
[~2024-01-21] MED LIST changes: +LACT10SO3; -LACT10SO94; +LEVO750T14 PO; -LEVO75TAB PO
[2024-01-21 15:12] LABS: HEMATOCRIT 39.3 % (36.0-47.0); HEMOGLOBIN 11.9 g/dl (12.0-15.5); MEAN CORPUSCULAR HEMOGLOBIN 27.9 pg (27.0-33.0); MEAN CORPUSCULAR HGB CONC 30.3 g/dl (32.0-36.5); PLATELET COUNT, AUTOMATED 289 10^3/uL (150-450); RED BLOOD COUNT 4.27 10^6/uL (4.00-5.40); WHITE BLOOD COUNT 5.7 10^3/uL (4.0-10.0)
[2024-01-21 15:31] LABS: HEMOGLOBIN A1c 5.8 % (4.0-6.0)
[2024-01-21 15:42] LABS: ALBUMIN 2.8 G/DL (3.2-5.2); ALKALINE PHOSPHATASE 130 U/L (35-104); ALT/SGPT 17 U/L (7.0-40); AST/SGOT 24 U/L (<34); BILIRUBIN,TOTAL 0.3 MG/DL (0.3-1.2); BLOOD UREA NITROGEN 11 MG/DL (9-23); CALCIUM LEVEL 9.1 MG/DL (8.3-10.6); CARBON DIOXIDE LEVEL 29 MMOL/L (20-31); CHLORIDE LEVEL 109 MMOL/L (98-107); CHOLESTEROL LEVEL 211 MG/DL (<200); CHOLESTEROL RISK RATIO 2.62 (<5); CREATININE FOR GFR 0.56 MG/DL (0.55-1.30); GLOMERULAR FILTRATION RATE > 60.0 (>45); GLUCOSE, FASTING 82 MG/DL (74-106); HDL CHOLESTEROL 80.5 MG/DL (>40); LDL CHOLESTEROL 112.1 MG/DL (<100); NON-HDL-C 130.5 MG/DL; POTASSIUM SERUM 3.8 MMOL/L (3.5-5.1); SODIUM LEVEL 142 MMOL/L (136-145); TOTAL PROTEIN 6.4 G/DL (5.7-8.2); TRIGLYCERIDES LEVEL 92 MG/DL (<150)
[2024-01-21 15:50] LABS: THYROID STIMULATING HORMONE 1.392 uIU/ML (0.55-4.78)
[2024-01-21 15:51] LABS: FERRITIN 18.7 NG/ML (7.3-270.7); FREE T4 0.94 NG/DL (0.89-1.76)
== END ==
LOC: M PLALAB 12:26
PROVIDERS: ATTEND Nurse Practitioner Adult Health
DX: R09.89 Other specified symptoms and signs involving the circulatory and respiratory systems (principal); D50.9 Iron deficiency anemia, unspecified; F25.0 Schizoaffective disorder, bipolar type; R73.01 Impaired fasting glucose; R41.3 Other amnesia; E78.2 Mixed hyperlipidemia; E55.9 Vitamin D deficiency, unspecified; K21.9 Gastro-esophageal reflux disease without esophagitis

== ENCOUNTER → 2024-02-25 | Outpatient (REF) | payer MEDICARE, MEDICAID ==
[~2024-02-25] MED LIST changes: -LACT10SO3; +LACT10SO94; -LEVO750T14 PO; +LEVO75TAB PO; +OMEP-611 PO; -OMEP20TA2 PO
== END ==
LOC: M LAB REF 16:55
PROVIDERS: ATTEND Physician Assistant Medical
DX: J06.9 Acute upper respiratory infection, unspecified (principal)

== ENCOUNTER → 2024-03-10 | Outpatient (CLI) | payer MEDICARE, MEDICAID ==
[~2024-03-10] MED LIST changes: +NORCO, ANEXSIA 5/325MG TABLET (HYDROcodone/ACETAMINOPHEN) As Ordered ONE; +TRIAMCINOLONE ACETONIDE SUSP 40MG/ML 1ML VIAL As Ordered ONE
== END ==
LOC: M PAIN 08:00
PROVIDERS: ATTEND Anesthesiology
DX: M79.18 Myalgia, other site (principal); G89.29 Other chronic pain; M54.50 Low back pain, unspecified; F25.9 Schizoaffective disorder, unspecified; K21.9 Gastro-esophageal reflux disease without esophagitis; E55.9 Vitamin D deficiency, unspecified; E78.2 Mixed hyperlipidemia; M48.061 Spinal stenosis, lumbar region without neurogenic claudication; K59.09 Other constipation; Z79.899 Other long term (current) drug therapy; Z88.0 Allergy status to penicillin; Z88.5 Allergy status to narcotic agent; Z88.6 Allergy status to analgesic agent
CPT/HCPCS: 20552; J0665; J3301

== ENCOUNTER → 2024-04-28 | Outpatient (CLI) | payer MEDICARE, MEDICAID ==
[~2024-04-28] MED LIST changes: -NORCO, ANEXSIA 5/325MG TABLET (HYDROcodone/ACETAMINOPHEN) As Ordered ONE; -TRIAMCINOLONE ACETONIDE SUSP 40MG/ML 1ML VIAL As Ordered ONE
[2024-04-28 18:39] LABS: HEMATOCRIT 39.8 % (36.0-47.0); HEMOGLOBIN 12.3 g/dl (12.0-15.5); MEAN CORPUSCULAR HEMOGLOBIN 27.2 pg (27.0-33.0); MEAN CORPUSCULAR HGB CONC 30.9 g/dl (32.0-36.5); MEAN CORPUSCULAR VOLUME 87.9 fl (80.0-96.0); PLATELET COUNT, AUTOMATED 398 10^3/uL (150-450); RED BLOOD COUNT 4.53 10^6/uL (4.00-5.40); WHITE BLOOD COUNT 6.3 10^3/uL (4.0-10.0)
[2024-04-28 18:58] LABS: HEMOGLOBIN A1c 5.8 % (4.0-6.0)
[2024-04-28 18:59] LABS: ALBUMIN 3.2 G/DL (3.2-5.2); ALKALINE PHOSPHATASE 145 U/L (35-104); ALT/SGPT 18 U/L (7.0-40); AST/SGOT 22 U/L (<34); BILIRUBIN,TOTAL 0.2 MG/DL (0.3-1.2); BLOOD UREA NITROGEN 13 MG/DL (9-23); CALCIUM LEVEL 9.2 MG/DL (8.3-10.6); CARBON DIOXIDE LEVEL 31 MMOL/L (20-31); CHLORIDE LEVEL 104 MMOL/L (98-107); CREATININE FOR GFR 0.59 MG/DL (0.55-1.30); GLOMERULAR FILTRATION RATE > 60.0 (>45); GLUCOSE, FASTING 100 MG/DL (74-106); POTASSIUM SERUM 4.6 MMOL/L (3.5-5.1); SODIUM LEVEL 142 MMOL/L (136-145)
== END ==
LOC: M PLALAB 15:25
PROVIDERS: ATTEND Nurse Practitioner Adult Health
DX: K59.00 Constipation, unspecified (principal); D50.9 Iron deficiency anemia, unspecified; R73.01 Impaired fasting glucose; K21.9 Gastro-esophageal reflux disease without esophagitis; R10.9 Unspecified abdominal pain

== ENCOUNTER 2024-06-05 13:26 | Emergency (ER) | payer MEDICARE, MEDICAID ==
[~2024-06-05] VITALS: Ht 147.3 cm; Wt 63.6 kg
[2024-06-05 13:29] VITALS: TEMP 97.8
[2024-06-05] MEDS: traMADol 50 MG TAB PO ONE (17:20)
[2024-06-05 18:09] VITALS: BP 116/73; O2SAT 95
[2024-06-05] MEDS ORDERED: TRAM50TA2 PO (18:59)
== END 2024-06-05 19:10 | disposition home or self-care (01) ==
LOC: M ED 13:26
DX: S43.401A Unspecified sprain of right shoulder joint, initial encounter (principal); W01.198A Fall on same level from slipping, tripping and stumbling with subsequent striking against other object, initial encounter; M19.011 Primary osteoarthritis, right shoulder; J44.9 Chronic obstructive pulmonary disease, unspecified; K21.9 Gastro-esophageal reflux disease without esophagitis; E78.5 Hyperlipidemia, unspecified; F25.9 Schizoaffective disorder, unspecified; Y92.009 Unspecified place in unspecified non-institutional (private) residence as the place of occurrence of the external cause; Y93.89 Activity, other specified; Y99.9 Unspecified external cause status; Z88.0 Allergy status to penicillin; Z88.5 Allergy status to narcotic agent; Z88.6 Allergy status to analgesic agent; Z79.83 Long term (current) use of bisphosphonates; Z79.1 Long term (current) use of non-steroidal anti-inflammatories (NSAID); Z79.899 Other long term (current) drug therapy

== ENCOUNTER → 2024-06-20 | Outpatient (CLI) | payer MEDICARE, MEDICAID | LOC: M RAD 09:50 | PROVIDERS: ATTEND Physician Assistant Medical | DX: M25.511 Pain in right shoulder (principal); M25.611 Stiffness of right shoulder, not elsewhere classified; M79.601 Pain in right arm; R20.0 Anesthesia of skin; M75.101 Unspecified rotator cuff tear or rupture of right shoulder, not specified as traumatic ==

== ENCOUNTER 2024-09-28 15:36 | Emergency (ER) | payer MEDICARE, MEDICAID ==
[~2024-09-28] VITALS: Ht 147.3 cm; Wt 60.8 kg
[~2024-09-28 15:36] MED LIST changes: +CYAN-1 PO; +FAMO40TA3 PO; +KP F1200 PO; +LIDO1ADH93 TD; -LIDO5DIS41 TD; +LINZ72CA PO; +PANT40TA29 PO; +VITA100T14 PO
[2024-09-28 15:45] VITALS: TEMP 98.5
[2024-09-28 17:57] LABS: BASO # 0.1 10^3/uL (0.0-0.2); BASO % 0.8 % (0.0-1.0); EOS # 0.1 10^3/uL (0.0-0.5); EOS % 0.7 % (0.0-3.0); LYMPH # 1.2 10^3/uL (1.5-5.0); LYMPH % 13.8 % (24.0-44.0); MONO # 0.7 10^3/uL (0.0-0.8); MONO % 8.1 % (2.0-8.0); NEUTROPHILS # 6.6 10^3/uL (1.5-8.5); NEUTROPHILS % 76.1 % (36.0-66.0); PLATELET COUNT, AUTOMATED 442 10^3/uL (150-450)
[2024-09-28 18:18] LABS: KETONE, URINE AUTO RFX NEGATIVE (NEGATIVE); LEUKOCYTE ESTERASE UR AUTO RFX NEGATIVE (NEGATIVE); NITRITE, URINE AUTO RFX NEGATIVE (NEGATIVE); RBC, URINE AUTO RFX 0 /HPF (0-3); SQUAM EPITHELIAL CELL UR AURFX 1 /HPF (0-6); WBC, URINE AUTO RFX 3 /HPF (0-3)
[2024-09-28 18:24] LABS: ALT/SGPT 18 U/L (7.0-40); AST/SGOT 45 U/L (<34); CALCIUM LEVEL 8.9 MG/DL (8.3-10.6); CARBON DIOXIDE LEVEL 26 MMOL/L (20-31); CHLORIDE LEVEL 104 MMOL/L (98-107); CREATININE FOR GFR 0.53 MG/DL (0.55-1.30); GLOMERULAR FILTRATION RATE > 90.0 (>45); MAGNESIUM LEVEL 2.0 MG/DL (1.8-2.4); POTASSIUM SERUM 4.6 MMOL/L (3.5-5.1); SODIUM LEVEL 142 MMOL/L (136-145)
[2024-09-28 19:15] VITALS: BP 128/59; O2SAT 97
== END 2024-09-28 19:43 | disposition home or self-care (01) ==
LOC: M ED 15:36 → EDBD 15:36 → M ED 19:43
DX: F25.9 Schizoaffective disorder, unspecified (principal); F41.9 Anxiety disorder, unspecified; F31.9 Bipolar disorder, unspecified; K21.9 Gastro-esophageal reflux disease without esophagitis; E78.5 Hyperlipidemia, unspecified; Z88.0 Allergy status to penicillin; Z88.5 Allergy status to narcotic agent; Z88.6 Allergy status to analgesic agent; Z79.1 Long term (current) use of non-steroidal anti-inflammatories (NSAID); Z79.83 Long term (current) use of bisphosphonates; Z79.899 Other long term (current) drug therapy

== ENCOUNTER 2024-10-27 13:15 | Emergency (ER) | payer MEDICARE, MEDICAID ==
[~2024-10-27] VITALS: Ht 147.3 cm; Wt 54.1 kg
[2024-10-27 14:47] LABS: PLATELET COUNT, AUTOMATED 385 10^3/uL (150-450)
[2024-10-27 14:59] LABS: ETHYL ALCOHOL (ETHANOL) < 0.003 % (0.000-0.010)
[2024-10-27 15:01] LABS: ALT/SGPT 13 U/L (7.0-40); AST/SGOT 24 U/L (<34); CALCIUM LEVEL 8.7 MG/DL (8.3-10.6); CARBON DIOXIDE LEVEL 29 MMOL/L (20-31); CHLORIDE LEVEL 106 MMOL/L (98-107); CREATININE FOR GFR 0.53 MG/DL (0.55-1.30); GLOMERULAR FILTRATION RATE > 90.0 (>39); POTASSIUM SERUM 3.0 MMOL/L (3.5-5.1); SALICYLATE LEVEL < 3.0 MG/DL (<30); SODIUM LEVEL 144 MMOL/L (136-145)
[2024-10-27] MEDS: POTASSIUM CHLORIDE 10MEQ SR TABLET PO ONE (15:26)
[2024-10-27 15:50] LABS: AMPHETAMINES LEVEL URINE NEGATIVE (NEGATIVE); BARBITURATES URINE NEGATIVE (NEGATIVE); BENZODIAZEPINES URINE NEGATIVE (NEGATIVE); COCAINE METABOLITE URINE NEGATIVE (NEGATIVE)
[2024-10-27 15:51] LABS: CANNABINOIDS URINE NEGATIVE (NEGATIVE); METHADONE URINE NEGATIVE (NEGATIVE); OPIATES URINE NEGATIVE (NEGATIVE); PHENCYCLIDINE URINE NEGATIVE (NEGATIVE)
[2024-10-27] MEDS ORDERED: OMEP40CA5 PO (16:19)
[2024-10-27] MEDS ORDERED: HOME MED LIST COMPLETE! XX SCH (16:20)
[2024-10-27 19:39] VITALS: BP 131/80; TEMP 98; O2SAT 97
== END 2024-10-27 21:03 | disposition home or self-care (01) ==
LOC: M ED 13:15
DX: F25.9 Schizoaffective disorder, unspecified (principal); K59.00 Constipation, unspecified; E78.5 Hyperlipidemia, unspecified; E55.9 Vitamin D deficiency, unspecified; K21.9 Gastro-esophageal reflux disease without esophagitis; Z79.1 Long term (current) use of non-steroidal anti-inflammatories (NSAID); Z79.899 Other long term (current) drug therapy; Z88.0 Allergy status to penicillin; Z88.5 Allergy status to narcotic agent; Z88.6 Allergy status to analgesic agent

== ENCOUNTER → 2024-11-16 | Outpatient (CLI) | payer MEDICARE, MEDICAID ==
[~2024-11-16] MED LIST changes: +OMEP40CA5 PO; -VITA100T14 PO; +VITA100T69 PO
[2024-11-16 18:36] LABS: PLATELET COUNT, AUTOMATED 357 10^3/uL (150-450)
[2024-11-16 18:56] LABS: ALT/SGPT 13 U/L (7.0-40); AST/SGOT 22 U/L (<34); CALCIUM LEVEL 9.4 MG/DL (8.3-10.6); CARBON DIOXIDE LEVEL 30 MMOL/L (20-31); CHLORIDE LEVEL 103 MMOL/L (98-107); CREATININE FOR GFR 0.58 MG/DL (0.55-1.30); GLOMERULAR FILTRATION RATE > 90.0 (>39); POTASSIUM SERUM 3.4 MMOL/L (3.5-5.1); SODIUM LEVEL 144 MMOL/L (136-145)
[2024-11-16 19:43] LABS: ESTIMATED AVERAGE GLUCOSE 114.0 MG/DL (60-110)
== END ==
LOC: M LAB 15:26
PROVIDERS: ATTEND Nurse Practitioner Adult Health
DX: K21.9 Gastro-esophageal reflux disease without esophagitis (principal); D50.9 Iron deficiency anemia, unspecified; R73.01 Impaired fasting glucose; D55.9 Anemia due to enzyme disorder, unspecified

== ENCOUNTER → 2024-11-16 | Outpatient (CLI) | payer MEDICARE, MEDICAID | LOC: M RAD 15:15 | PROVIDERS: ATTEND Pain Medicine Interventional Pain Medicine | DX: M47.22 Other spondylosis with radiculopathy, cervical region (principal); M48.02 Spinal stenosis, cervical region ==

== ENCOUNTER 2024-12-01 22:54 | Emergency (ER) | payer MEDICARE, MEDICAID ==
[~2024-12-01] VITALS: Ht 147.3 cm; Wt 51.0 kg
[2024-12-02 00:43] LABS: VENOUS BASE EXCESS 1.5 (-2.0-2.0); VENOUS HCO3 28.1 MMOL/L (23.0-27.0); VENOUS O2 SATURATION 69.8 % (60.0-80.0); VENOUS PARTIAL PRESSURE CO2 53.3 mmHg (38.0-50.0); VENOUS PARTIAL PRESSURE O2 39.0 mmHg (30.0-50.0); VENOUS PH 7.340 UNITS (7.330-7.430); VENOUS STANDARD HCO3 25.2 MMOL/L; VENOUS TOTAL CO2 29.7 MMOL/L (24.0-28.0)
[2024-12-02 00:49] LABS: BASO # 0.1 10^3/uL (0.0-0.2); BASO % 1.2 % (0.0-1.0); EOS # 0.2 10^3/uL (0.0-0.5); EOS % 3.0 % (0.0-3.0); LYMPH # 1.3 10^3/uL (1.5-5.0); LYMPH % 27.1 % (24.0-44.0); MONO # 0.5 10^3/uL (0.0-0.8); MONO % 10.1 % (2.0-8.0); NEUTROPHILS # 2.9 10^3/uL (1.5-8.5); NEUTROPHILS % 58.2 % (36.0-66.0); PLATELET COUNT, AUTOMATED 360 10^3/uL (150-450)
[2024-12-02 00:50] LABS: KETONE, URINE AUTO RFX NEGATIVE (NEGATIVE); LEUKOCYTE ESTERASE UR AUTO RFX NEGATIVE (NEGATIVE); NITRITE, URINE AUTO RFX NEGATIVE (NEGATIVE); RBC, URINE AUTO RFX 0 /HPF (0-3); SQUAM EPITHELIAL CELL UR AURFX 0 /HPF (0-6); WBC, URINE AUTO RFX 1 /HPF (0-3)
[2024-12-02] MEDS: ONDANSETRON 4MG 2ML VIAL IV ONE (01:27)
[2024-12-02] MEDS: MORPHINE 2 MG/ML 1 ML VIAL IV ONE (01:27)
[2024-12-02 01:31] LABS: INR 0.91
[2024-12-02 01:36] LABS: CALCIUM LEVEL 8.9 MG/DL (8.3-10.6); CARBON DIOXIDE LEVEL 29 MMOL/L (20-31); CHLORIDE LEVEL 107 MMOL/L (98-107); CK-MB VALUE MASS 1.9 NG/ML (<3.6); CPK CREATINE PHOSPHOKINASE 50 U/L (34-145); CREATININE FOR GFR 0.48 MG/DL (0.55-1.30); FREE T4 1.13 NG/DL (0.89-1.76); GLOMERULAR FILTRATION RATE > 90.0 (>39); MAGNESIUM LEVEL 2.2 MG/DL (1.8-2.4); MB/CK RELATIVE INDEX 3.80 (< OR =4); POTASSIUM SERUM 3.9 MMOL/L (3.5-5.1); SODIUM LEVEL 145 MMOL/L (136-145)
[2024-12-02] MEDS ORDERED: ACETAMINOPHEN 325 MG TAB PO ONE (06:55)
[2024-12-02 07:11] VITALS: TEMP 97.5
[2024-12-02] MEDS: ACETAMINOPHEN 325 MG TAB PO ONE (07:19)
[2024-12-02] MEDS ORDERED: HYDR12.55 PO (14:01)
[2024-12-02] MEDS ORDERED: ASPI81TA26 PO (14:02)
[2024-12-02] MEDS ORDERED: HOME MED LIST COMPLETE! XX SCH (14:05)
[2024-12-02] MEDS ORDERED: ACETAMINOPHEN 500 MG TAB PO PRN (14:10)
[2024-12-02 14:59] VITALS: O2SAT 100
[2024-12-02 15:00] VITALS: BP 115/66
[2024-12-02] MEDS: MONTELUKAST 10 MG TAB PO SCH (15:09)
[2024-12-02] MEDS: ASPIRIN 81 MG ENTERIC TABLET PO SCH (15:09)
[2024-12-02] MEDS: VITAMIN D 1,000 INTERNATIONAL UNITS TABLET PO SCH (15:09)
[2024-12-02 15:10] VITALS: BP 115/66
[2024-12-02] MEDS: lamoTRIgine 100 MG TAB PO SCH (15:10)
[2024-12-02] MEDS ORDERED: SIMVASTATIN 20 MG TAB PO SCH (21:00)
[2024-12-02] MEDS ORDERED: FAMOTIDINE 20 MG TAB PO SCH (21:00)
[2024-12-02] MEDS ORDERED: busPIRone 5 MG TAB PO SCH (21:00)
[2024-12-02] MEDS ORDERED: QUEtiapine FUMERATE XR 50MG TABER PO SCH (21:00)
[2024-12-02] MEDS ORDERED: DOCUSATE SODIUM 100 MG CAPSULE PO SCH (21:00)
== END 2024-12-02 15:19 | disposition home or self-care (01) ==
LOC: M ED 22:54
DX: R55 Syncope and collapse (principal); W18.30XA Fall on same level, unspecified, initial encounter; M16.0 Bilateral primary osteoarthritis of hip; F25.0 Schizoaffective disorder, bipolar type; E55.9 Vitamin D deficiency, unspecified; K21.9 Gastro-esophageal reflux disease without esophagitis; E78.5 Hyperlipidemia, unspecified; I25.2 Old myocardial infarction; K59.00 Constipation, unspecified; M48.061 Spinal stenosis, lumbar region without neurogenic claudication; Z96.653 Presence of artificial knee joint, bilateral; Z96.612 Presence of left artificial shoulder joint; Z88.0 Allergy status to penicillin; Z88.5 Allergy status to narcotic agent; Z88.6 Allergy status to analgesic agent; Z79.1 Long term (current) use of non-steroidal anti-inflammatories (NSAID); Z79.899 Other long term (current) drug therapy; Z79.83 Long term (current) use of bisphosphonates
CPT/HCPCS: 70450; 72125; 72190; 73564; 80048; 81001; 82140; 82550; 82553; 82803; 83605; 83735; 84439; 84443; 84484; 85025; 85610; 85730; 93005; 93041; 93880; 94760; 96374; 97116; 97161; 97165; 99285; J2405

== ENCOUNTER → 2024-12-06 | Outpatient (CLI) | payer MEDICARE, MEDICAID ==
[~2024-12-06] MED LIST changes: +ASPI81TA26 PO; +HYDR12.55 PO
== END ==
LOC: M WHC 06:56
PROVIDERS: ATTEND Nurse Practitioner Adult Health
DX: Z12.31 Encounter for screening mammogram for malignant neoplasm of breast (principal); R92.323 Mammographic fibroglandular density, bilateral breasts

== ENCOUNTER → 2024-12-13 | Outpatient (REF) | payer MEDICARE, MEDICAID | LOC: M SFHCLERA 16:35 | DX: R19.8 Other specified symptoms and signs involving the digestive system and abdomen (principal); R19.7 Diarrhea, unspecified; R10.30 Lower abdominal pain, unspecified ==

== ENCOUNTER 2024-12-28 12:51 | Emergency (ER) | payer MEDICARE, MEDICAID ==
[~2024-12-28] VITALS: Ht 147.3 cm; Wt 45.9 kg
[2024-12-28 13:01] VITALS: TEMP 97.8
[2024-12-28 15:17] LABS: APPEARANCE, URINE CLEAR (CLEAR); BACTERIA, URINE AUTO NEGATIVE (NEGATIVE); BILIRUBIN, URINE AUTO NEGATIVE (NEGATIVE); BLOOD, URINE BLOOD NEGATIVE (NEGATIVE); GLUCOSE, URINE (UA) AUTO NEGATIVE (NEGATIVE); KETONE, URINE AUTO NEGATIVE (NEGATIVE); LEUKOCYTE ESTERASE, URINE AUTO 1+ (NEGATIVE); NITRITE, URINE AUTO NEGATIVE (NEGATIVE); PROTEIN, URINE AUTO NEGATIVE (NEGATIVE); RBC, URINE AUTO 0 /HPF (0-3); SPECIFIC GRAVITY URINE AUTO 1.010 (1.002-1.035); SQUAMOUS EPITHELIAL CELL UR AU 0 /HPF (0-6); UROBILINOGEN, URINE AUTO 0.2 mg/dL (0.0-2.0); WBC, URINE AUTO 9 /HPF (0-3)
[2024-12-28 15:22] LABS: BASO # 0.1 10^3/uL (0.0-0.2); BASO % 1.0 % (0.0-1.0); EOS # 0.2 10^3/uL (0.0-0.5); EOS % 3.5 % (0.0-3.0); LYMPH # 1.8 10^3/uL (1.5-5.0); LYMPH % 29.7 % (24.0-44.0); MONO # 0.7 10^3/uL (0.0-0.8); MONO % 11.5 % (2.0-8.0); NEUTROPHILS # 3.2 10^3/uL (1.5-8.5); NEUTROPHILS % 54.0 % (36.0-66.0); PLATELET COUNT, AUTOMATED 334 10^3/uL (150-450)
[2024-12-28 15:34] LABS: INR 0.91
[2024-12-28 16:00] LABS: CPK CREATINE PHOSPHOKINASE 107 U/L (34-145)
[2024-12-28 16:05] LABS: CALCIUM LEVEL 8.7 MG/DL (8.3-10.6); CARBON DIOXIDE LEVEL 28 MMOL/L (20-31); CHLORIDE LEVEL 103 MMOL/L (98-107); CK-MB VALUE MASS 4.1 NG/ML (<3.6); CREATININE FOR GFR 0.47 MG/DL (0.55-1.30); GLOMERULAR FILTRATION RATE > 90.0 (>39); MB/CK RELATIVE INDEX 3.83 (< OR =4); POTASSIUM SERUM 2.7 MMOL/L (3.5-5.1); SODIUM LEVEL 140 MMOL/L (136-145)
[2024-12-28 16:18] LABS: MAGNESIUM LEVEL 2.0 MG/DL (1.8-2.4)
[2024-12-28] MEDS: KCL 10MEQ/100ML SWI (KRUN) 10 MEQ in IV 1 EA IV ONE (16:37)
[2024-12-28] MEDS: POTASSIUM CHLORIDE 10MEQ SR TABLET PO ONE (16:37)
[2024-12-28 16:44] LABS: CK-MB VALUE MASS 3.8 NG/ML (<3.6)
[2024-12-28 16:46] LABS: CPK CREATINE PHOSPHOKINASE 93.0 U/L (34-145); MB/CK RELATIVE INDEX 4.08 (< OR =4)
[2024-12-28 18:36] VITALS: O2SAT 95
[2024-12-28 19:00] VITALS: BP 119/72
[2024-12-28] MEDS: ACETAMINOPHEN 325 MG TAB PO ONE (19:02)
[2024-12-28] MEDS ORDERED: POTA10CA70 PO (19:06)
== END 2024-12-28 19:36 | disposition home or self-care (01) ==
LOC: EDBD 12:51 → M ED 12:51
DX: E87.6 Hypokalemia (principal); R53.1 Weakness; W01.198A Fall on same level from slipping, tripping and stumbling with subsequent striking against other object, initial encounter; G31.9 Degenerative disease of nervous system, unspecified; I67.82 Cerebral ischemia; M48.02 Spinal stenosis, cervical region; E78.5 Hyperlipidemia, unspecified; J44.9 Chronic obstructive pulmonary disease, unspecified; K21.9 Gastro-esophageal reflux disease without esophagitis; F41.9 Anxiety disorder, unspecified; F25.0 Schizoaffective disorder, bipolar type; F90.9 Attention-deficit hyperactivity disorder, unspecified type; Z88.0 Allergy status to penicillin; Z88.5 Allergy status to narcotic agent; Z88.6 Allergy status to analgesic agent; Z79.1 Long term (current) use of non-steroidal anti-inflammatories (NSAID); Z79.82 Long term (current) use of aspirin; Z79.899 Other long term (current) drug therapy

== ENCOUNTER → 2025-01-17 | Outpatient (CLI) | payer MEDICARE, MEDICAID ==
[~2025-01-17] MED LIST changes: +POTA10CA70 PO
== END ==
LOC: M RAD 14:46
PROVIDERS: ATTEND Pain Medicine Interventional Pain Medicine
DX: M54.16 Radiculopathy, lumbar region (principal)

== ENCOUNTER 2025-01-26 11:43 | Inpatient (IN) | payer MEDICARE, MEDICAID ==
[~2025-01-26] VITALS: Ht 147.3 cm; Wt 44.3 kg
[2025-01-26 12:28] LABS: PLATELET COUNT, AUTOMATED 399 10^3/uL (150-450)
[2025-01-26 12:59] LABS: AMPHETAMINES LEVEL URINE NEGATIVE (NEGATIVE); BARBITURATES URINE NEGATIVE (NEGATIVE); BENZODIAZEPINES URINE NEGATIVE (NEGATIVE); CANNABINOIDS URINE NEGATIVE (NEGATIVE); COCAINE METABOLITE URINE NEGATIVE (NEGATIVE); METHADONE URINE NEGATIVE (NEGATIVE); OPIATES URINE NEGATIVE (NEGATIVE); PHENCYCLIDINE URINE NEGATIVE (NEGATIVE)
[2025-01-26 13:00] LABS: ETHYL ALCOHOL (ETHANOL) < 0.003 % (0.000-0.010)
[2025-01-26 13:01] LABS: ALT/SGPT 13 U/L (7.0-40); AST/SGOT 23 U/L (<34); CALCIUM LEVEL 9.5 MG/DL (8.3-10.6); CARBON DIOXIDE LEVEL 29 MMOL/L (20-31); CHLORIDE LEVEL 103 MMOL/L (98-107); CREATININE FOR GFR 0.53 MG/DL (0.55-1.30); GLOMERULAR FILTRATION RATE > 90.0 (>39); POTASSIUM SERUM 4.1 MMOL/L (3.5-5.1); SODIUM LEVEL 140 MMOL/L (136-145)
[2025-01-26 13:02] LABS: SALICYLATE LEVEL < 3.0 MG/DL (<30)
[2025-01-26] MEDS ORDERED: MAALOX 30 ML SUSP *UDC PO PRN (13:50)
[2025-01-26] MEDS ORDERED: QUET150T14 PO (14:30)
[2025-01-26] MEDS ORDERED: POTA1TAB23 PO (14:30)
[2025-01-26 14:32] VITALS: BP 130/80; TEMP 97.3; O2SAT 97
[2025-01-26] MEDS ORDERED: HOME MED LIST COMPLETE! XX SCH (14:35)
[2025-01-26] MEDS: ACETAMINOPHEN 325 MG TAB PO PRN (16:11)
[2025-01-26] MEDS: busPIRone 5 MG TAB PO SCH (21:00)
[2025-01-26] MEDS: FAMOTIDINE 20 MG TAB PO SCH (21:00)
[2025-01-26] MEDS: SIMVASTATIN 20 MG TAB PO SCH (21:00)
[2025-01-26] MEDS ORDERED: KETOROLAC 30 MG/ML 1 ML VIAL IV ONE (21:50)
[2025-01-26] MEDS: KETOROLAC 30 MG/ML 1 ML VIAL IM ONE (22:33)
[2025-01-27] MEDS: POTASSIUM CHLORIDE 10MEQ SR TABLET PO SCH (09:30)
[2025-01-27] MEDS: ASPIRIN 81 MG ENTERIC TABLET PO SCH (09:31)
[2025-01-27] MEDS: lamoTRIgine 100 MG TAB PO SCH (09:31)
[2025-01-27 14:11] LABS: KETONE, URINE AUTO RFX NEGATIVE (NEGATIVE); LEUKOCYTE ESTERASE UR AUTO RFX NEGATIVE (NEGATIVE); NITRITE, URINE AUTO RFX NEGATIVE (NEGATIVE); RBC, URINE AUTO RFX 0 /HPF (0-3); SQUAM EPITHELIAL CELL UR AURFX 0 /HPF (0-6); WBC, URINE AUTO RFX 1 /HPF (0-3)
[2025-01-27 15:48] VITALS: BP 119/75; TEMP 97.4; O2SAT 93
[2025-01-27] MEDS: QUEtiapine FUMERATE XR 50MG TABER PO SCH (20:39)
[2025-01-28 06:26] VITALS: BP 100/57; TEMP 96.9; O2SAT 98
[2025-01-28 15:27] VITALS: BP 102/64; TEMP 97.6; O2SAT 95
[2025-01-29 06:24] VITALS: BP 110/63; TEMP 98.2; O2SAT 100
[2025-01-29 18:32] VITALS: BP 99/60; TEMP 98; O2SAT 92
[2025-01-29 20:59] VITALS: BP 99/60; TEMP 98; O2SAT 92
[2025-01-29] MEDS: MOM 30 ML SUSPENSION UDC PO PRN (21:03)
[2025-01-30 06:54] VITALS: BP 102/66; TEMP 98.4; O2SAT 97
[2025-01-30 09:53] VITALS: BP 109/71
[2025-01-30 16:11] VITALS: BP 127/72; TEMP 97.9; O2SAT 99
[2025-01-30 20:44] VITALS: BP 127/72; TEMP 97.9; O2SAT 99
[2025-01-30 20:54] VITALS: BP 127/72; TEMP 97.9; O2SAT 99
[2025-01-31 06:38] VITALS: BP_SYST 132; BP_SYST 98; BP_DIAS 60; BP_DIAS 84; TEMP 97.8; TEMP 97.9; O2SAT 96; O2SAT 98
[2025-01-31 09:06] VITALS: BP 90/53
[2025-01-31] MEDS: OLANZapine 5 MG TAB PO SCH (09:10)
[2025-01-31 16:46] VITALS: BP 98/54; TEMP 98.9; O2SAT 98
[2025-02-01 06:25] VITALS: BP 108/62; TEMP 97.6; O2SAT 99
[2025-02-01 16:20] VITALS: BP 103/66; TEMP 98.4; O2SAT 97
[2025-02-02 06:30] VITALS: BP 132/64; TEMP 98; O2SAT 100
[2025-02-02 16:01] VITALS: BP 124/88; TEMP 97.1; O2SAT 95
[2025-02-03 06:36] VITALS: BP 127/74; TEMP 98.9; O2SAT 98
[2025-02-03 16:16] VITALS: BP 127/56; TEMP 98.1; O2SAT 100
[2025-02-03] MEDS: QUEtiapine FUMERATE XR 50MG TABER PO SCH (20:33)
[2025-02-04 06:25] VITALS: BP 92/64; TEMP 98.6; O2SAT 99
[2025-02-04 08:37] VITALS: BP 93/58
[2025-02-04 14:38] VITALS: BP 106/64; TEMP 98.5; O2SAT 99
[2025-02-05] MEDS ORDERED: PILL CUTTER 1 EACH XX PRN (06:20)
[2025-02-05 06:25] VITALS: BP 119/68; TEMP 98.1; O2SAT 100
[2025-02-05 09:13] VITALS: BP 116/60
[2025-02-05] MEDS: DOCUSATE SODIUM 100 MG CAPSULE PO SCH (12:05)
[2025-02-05 15:43] VITALS: BP 116/78; TEMP 98.5; O2SAT 99
[2025-02-06 06:30] VITALS: BP 115/73; TEMP 98.3; O2SAT 98
[2025-02-06 08:56] VITALS: BP 119/83
[2025-02-06] MEDS: ONDANSETRON 4MG ORAL DISINTEGRATING TAB PO PRN (12:25)
[2025-02-06 16:10] VITALS: BP 113/72; TEMP 98.8; O2SAT 98
[2025-02-07] MEDS: traZODone 50 MG TAB PO PRN (00:01)
[2025-02-07 06:31] VITALS: BP 108/88; TEMP 98.6; O2SAT 98
[2025-02-07 16:37] VITALS: BP 134/64; TEMP 97.5; O2SAT 99
[2025-02-08 06:23] VITALS: BP 104/59; TEMP 98.7; O2SAT 96
[2025-02-08] MEDS: OMEPRAZOLE 20MG CAP PO SCH (08:16)
[2025-02-08 15:15] VITALS: BP 103/59; TEMP 97.9; O2SAT 95
[2025-02-09 06:16] VITALS: BP 120/82; TEMP 97.8; O2SAT 99
[2025-02-09 16:27] VITALS: BP 121/60; TEMP 97.7; O2SAT 94
[2025-02-10 06:47] VITALS: BP 121/74; TEMP 98.7; O2SAT 99
[2025-02-10 09:00] VITALS: BP 98/56
[2025-02-10] MEDS ORDERED: DULO1CAP5 PO ×2 (09:38)
[2025-02-10] MEDS ORDERED: TRAZ-252 PO (09:38)
[2025-02-10] MEDS ORDERED: HYDR-3363 PO (09:38)
[2025-02-10] MEDS ORDERED: OLAN2.5T53 PO (09:38)
== END 2025-02-10 10:38 | disposition home or self-care (01) | DRG 885 ==
LOC: M ED 11:43 → M ED INP 13:50 → M PSY 14:27
PROVIDERS: ADMIT General Practice; ATTEND General Practice
DX: F20.9 Schizophrenia, unspecified (principal); R45.851 Suicidal ideations; F60.7 Dependent personality disorder; M19.90 Unspecified osteoarthritis, unspecified site; Z88.0 Allergy status to penicillin; Z88.5 Allergy status to narcotic agent; Z88.6 Allergy status to analgesic agent; Z79.899 Other long term (current) drug therapy; Z79.82 Long term (current) use of aspirin

== ENCOUNTER 2025-02-12 15:34 | Inpatient (IN) | payer MEDICARE, MEDICAID ==
[~2025-02-12] VITALS: Ht 162.6 cm; Wt 50.3 kg
[~2025-02-12 15:34] MED LIST changes: +HYDR-3363 PO; +OLAN2.5T53 PO; +POTA1TAB23 PO; +QUET150T14 PO; +TRAZ-252 PO
[2025-02-12 16:40] LABS: BASO # 0.1 10^3/uL (0.0-0.2); BASO % 1.6 % (0.0-1.0); EOS # 0.2 10^3/uL (0.0-0.5); EOS % 4.1 % (0.0-3.0); LYMPH # 1.6 10^3/uL (1.5-5.0); LYMPH % 28.3 % (24.0-44.0); MONO # 0.8 10^3/uL (0.0-0.8); MONO % 14.8 % (2.0-8.0); NEUTROPHILS # 2.9 10^3/uL (1.5-8.5); NEUTROPHILS % 51.0 % (36.0-66.0); PLATELET COUNT, AUTOMATED 319 10^3/uL (150-450)
[2025-02-12 17:12] LABS: ETHYL ALCOHOL (ETHANOL) < 0.003 % (0.000-0.010)
[2025-02-12 17:13] LABS: ALT/SGPT 25 U/L (7.0-40); AST/SGOT 40 U/L (<34); CALCIUM LEVEL 8.7 MG/DL (8.3-10.6); CARBON DIOXIDE LEVEL 26 MMOL/L (20-31); CHLORIDE LEVEL 106 MMOL/L (98-107); CREATININE FOR GFR 0.51 MG/DL (0.55-1.30); GLOMERULAR FILTRATION RATE > 90.0 (>39); POTASSIUM SERUM 4.2 MMOL/L (3.5-5.1); SALICYLATE LEVEL < 3.0 MG/DL (<30); SODIUM LEVEL 142 MMOL/L (136-145)
[2025-02-12 17:30] LABS: VALPROIC ACID (DEPAKOTE) < 3.0 UG/ML (50.0-100.0)
[2025-02-12 17:43] LABS: CPK CREATINE PHOSPHOKINASE 47 U/L (34-145)
[2025-02-12 18:13] LABS: AMPHETAMINES LEVEL URINE NEGATIVE (NEGATIVE); BARBITURATES URINE NEGATIVE (NEGATIVE); BENZODIAZEPINES URINE NEGATIVE (NEGATIVE); CANNABINOIDS URINE NEGATIVE (NEGATIVE); COCAINE METABOLITE URINE NEGATIVE (NEGATIVE); METHADONE URINE NEGATIVE (NEGATIVE); OPIATES URINE NEGATIVE (NEGATIVE); PHENCYCLIDINE URINE NEGATIVE (NEGATIVE)
[2025-02-12 20:10] LABS: ALT/SGPT 25 U/L (7.0-40); AST/SGOT 38 U/L (<34); CALCIUM LEVEL 8.9 MG/DL (8.3-10.6); MAGNESIUM LEVEL 2.0 MG/DL (1.8-2.4)
[2025-02-12] MEDS ORDERED: MOM 30 ML SUSPENSION UDC PO PRN (22:45)
[2025-02-13] MEDS ORDERED: DULO1CAP6 PO (01:13)
[2025-02-13] MEDS ORDERED: OLAN7.5T38 PO (01:13)
[2025-02-13] MEDS ORDERED: HYDR-3364 PO (01:13)
[2025-02-13] MEDS ORDERED: DULO30CA9 PO (01:13)
[2025-02-13] MEDS ORDERED: TRAZ-252 PO (01:13)
[2025-02-13 01:14] VITALS: BP 116/65; TEMP 98.4; O2SAT 95
[2025-02-13] MEDS ORDERED: HOME MED LIST COMPLETE! XX SCH (01:15)
[2025-02-13] MEDS ORDERED: RED500CA PO (01:17)
[2025-02-13 06:37] VITALS: BP 126/79; TEMP 98.8; O2SAT 95
[2025-02-13 15:17] VITALS: BP 138/89; TEMP 99.2; O2SAT 97
[2025-02-13] MEDS: traZODone 50 MG TAB PO PRN (21:25)
[2025-02-13] MEDS: MAALOX 30 ML SUSP *UDC PO PRN (21:25)
[2025-02-13] MEDS: ACETAMINOPHEN 325 MG TAB PO PRN (21:27)
[2025-02-14 06:39] VITALS: BP 122/74; TEMP 98.1; O2SAT 98
[2025-02-14] MEDS: DOCUSATE SODIUM 100 MG CAPSULE PO SCH (09:27)
[2025-02-14] MEDS: VITAMIN D 1,000 INTERNATIONAL UNITS TABLET PO SCH (09:27)
[2025-02-14] MEDS: MONTELUKAST 10 MG TAB PO SCH (09:27)
[2025-02-14] MEDS: lamoTRIgine 100 MG TAB PO SCH (09:27)
[2025-02-14] MEDS: busPIRone 5 MG TAB PO SCH (09:28)
[2025-02-14] MEDS: ASPIRIN 81 MG ENTERIC TABLET PO SCH (09:28)
[2025-02-14 15:07] VITALS: BP 110/60; TEMP 97.4; O2SAT 99
[2025-02-14] MEDS: FAMOTIDINE 20 MG TAB PO SCH (21:32)
[2025-02-14] MEDS: SIMVASTATIN 20 MG TAB PO SCH (21:32)
[2025-02-15 06:49] VITALS: BP 107/63; TEMP 98.1; O2SAT 95
[2025-02-15] MEDS: FLUTICASONE PROPIONATE 0.05% NASAL SPRAY 16 GM NARES SCH (17:13)
[2025-02-15 17:22] VITALS: BP 114/57; TEMP 98.6; O2SAT 98
[2025-02-16 06:10] VITALS: BP 107/72; TEMP 97.5; O2SAT 100
[2025-02-16 14:30] VITALS: BP 110/72; TEMP 96.5; O2SAT 98
[2025-02-17 06:39] VITALS: BP 100/78; TEMP 98.4; O2SAT 97
[2025-02-17 08:33] VITALS: BP 123/65
[2025-02-17 16:01] VITALS: BP 134/69; TEMP 98.6; O2SAT 100
[2025-02-17 20:26] VITALS: BP 134/69; TEMP 98.6; O2SAT 100
[2025-02-18 06:26] VITALS: BP 143/71; TEMP 98.1; O2SAT 98
[2025-02-18 08:50] VITALS: BP 114/71
[2025-02-18 15:15] VITALS: BP 131/86; TEMP 98.3; O2SAT 96
[2025-02-18 20:24] VITALS: BP 131/86; TEMP 98.3; O2SAT 96
[2025-02-19 06:26] VITALS: BP 109/75; TEMP 99.2; O2SAT 99
[2025-02-19 15:20] VITALS: BP 113/58; TEMP 98.6; O2SAT 94
[2025-02-19 20:00] VITALS: O2SAT 96
[2025-02-19] MEDS ORDERED: OLAN7.5T38 PO (22:56)
[2025-02-20 06:16] VITALS: BP 133/78; TEMP 98.2; O2SAT 99
[2025-02-20 08:38] VITALS: BP 110/73
== END 2025-02-20 16:32 | disposition home or self-care (01) | DRG 885 ==
LOC: M ED 15:34 → EDBD 15:34 → M ED INP 22:55 → M PSY 22:55 → UNDOADMIN 22:55 → M PSY 02-13 00:58
PROVIDERS: ADMIT Student in an Organized Health Care Education/Training Program; ATTEND Student in an Organized Health Care Education/Training Program
DX: F25.9 Schizoaffective disorder, unspecified (principal); R45.851 Suicidal ideations; F41.9 Anxiety disorder, unspecified; F31.9 Bipolar disorder, unspecified; F60.7 Dependent personality disorder; Z79.82 Long term (current) use of aspirin; Z79.899 Other long term (current) drug therapy; Z88.6 Allergy status to analgesic agent; M19.90 Unspecified osteoarthritis, unspecified site

== ENCOUNTER 2025-02-23 11:17 | Emergency (ER) | payer MEDICARE, MEDICAID ==
[~2025-02-23] VITALS: Ht 147.3 cm; Wt 47.3 kg
[~2025-02-23 11:17] MED LIST changes: +DULO30CA9 PO; +HYDR-3364 PO; +OLAN7.5T38 PO; +RED500CA PO
[2025-02-23 11:22] VITALS: BP 123/72; TEMP 98.7; O2SAT 100
[2025-02-23 11:59] LABS: PLATELET COUNT, AUTOMATED 424 10^3/uL (150-450)
[2025-02-23 12:24] LABS: AMPHETAMINES LEVEL URINE NEGATIVE (NEGATIVE)
[2025-02-23 12:25] LABS: BARBITURATES URINE NEGATIVE (NEGATIVE); BENZODIAZEPINES URINE NEGATIVE (NEGATIVE); CANNABINOIDS URINE NEGATIVE (NEGATIVE); COCAINE METABOLITE URINE NEGATIVE (NEGATIVE); METHADONE URINE NEGATIVE (NEGATIVE); OPIATES URINE NEGATIVE (NEGATIVE); PHENCYCLIDINE URINE NEGATIVE (NEGATIVE)
[2025-02-23 12:27] LABS: ETHYL ALCOHOL (ETHANOL) 0.006 % (0.000-0.010)
[2025-02-23 12:28] LABS: SALICYLATE LEVEL < 3.0 MG/DL (<30)
[2025-02-23 12:29] LABS: ALT/SGPT 26 U/L (7.0-40); AST/SGOT 37 U/L (<34); CALCIUM LEVEL 8.5 MG/DL (8.3-10.6); CARBON DIOXIDE LEVEL 26 MMOL/L (20-31); CHLORIDE LEVEL 107 MMOL/L (98-107); CREATININE FOR GFR 0.45 MG/DL (0.55-1.30); GLOMERULAR FILTRATION RATE > 90.0 (>39); POTASSIUM SERUM 3.7 MMOL/L (3.5-5.1); SODIUM LEVEL 144 MMOL/L (136-145)
== END 2025-02-23 12:57 | disposition home or self-care (01) ==
LOC: M ED 11:17
DX: F25.0 Schizoaffective disorder, bipolar type (principal); I10 Essential (primary) hypertension; Z88.0 Allergy status to penicillin; Z88.6 Allergy status to analgesic agent; Z88.5 Allergy status to narcotic agent; Z79.82 Long term (current) use of aspirin; Z79.1 Long term (current) use of non-steroidal anti-inflammatories (NSAID); Z79.899 Other long term (current) drug therapy

== ENCOUNTER 2025-02-23 15:23 | Inpatient (IN) | payer MEDICARE, MEDICAID ==
[~2025-02-23] VITALS: Ht 129.5 cm; Wt 47.3 kg
[2025-02-23] MEDS ORDERED: HOME MED LIST COMPLETE! XX SCH (18:20)
[2025-02-23] MEDS ORDERED: MOM 30 ML SUSPENSION UDC PO PRN (20:00)
[2025-02-23] MEDS ORDERED: MAALOX 30 ML SUSP *UDC PO PRN (20:00)
[2025-02-23 21:28] VITALS: BP 129/74; TEMP 98.4; O2SAT 97
[2025-02-23] MEDS: DOCUSATE SODIUM 100 MG CAPSULE PO SCH (22:06)
[2025-02-23] MEDS: busPIRone 5 MG TAB PO SCH (22:06)
[2025-02-23] MEDS: SIMVASTATIN 20 MG TAB PO SCH (22:07)
[2025-02-23] MEDS: FAMOTIDINE 20 MG TAB PO SCH (22:07)
[2025-02-23] MEDS: QUEtiapine FUMARATE 50MG TAB PO SCH (22:07)
[2025-02-24 06:07] VITALS: BP 120/79; TEMP 98.6; O2SAT 99
[2025-02-24] MEDS: VITAMIN D 1,000 INTERNATIONAL UNITS TABLET PO SCH (09:04)
[2025-02-24] MEDS: lamoTRIgine 100 MG TAB PO SCH (09:04)
[2025-02-24] MEDS: ACETAMINOPHEN 325 MG TAB PO PRN (09:04)
[2025-02-24] MEDS: MONTELUKAST 10 MG TAB PO SCH (09:04)
[2025-02-24] MEDS: ASPIRIN 81 MG ENTERIC TABLET PO SCH (09:05)
[2025-02-24 17:06] VITALS: BP 139/83; TEMP 98.3; O2SAT 100
[2025-02-24] MEDS: traZODone 50 MG TAB PO PRN (20:41)
[2025-02-25 06:24] VITALS: BP 128/80; TEMP 98.1; O2SAT 100
[2025-02-25 15:32] VITALS: BP 118/74; TEMP 98; O2SAT 96
[2025-02-26 06:23] VITALS: BP 114/77; TEMP 97.7; O2SAT 98
[2025-02-26 08:42] VITALS: BP 139/77
[2025-02-26 15:45] VITALS: BP 113/73; TEMP 98.2; O2SAT 97
[2025-02-27 06:39] VITALS: BP 135/66; TEMP 98.3; O2SAT 98
[2025-02-27 09:10] VITALS: BP 150/73
[2025-02-27 09:14] VITALS: BP 150/73
== END 2025-02-27 16:14 | disposition home or self-care (01) | DRG 885 ==
LOC: M ED 15:23 → M ED INP 19:58 → M PSY 21:23
PROVIDERS: ADMIT Psychiatry & Neurology Neurology; ATTEND Psychiatry & Neurology Neurology
DX: F25.0 Schizoaffective disorder, bipolar type (principal); R45.851 Suicidal ideations; I10 Essential (primary) hypertension; Z88.0 Allergy status to penicillin; Z88.6 Allergy status to analgesic agent; Z88.5 Allergy status to narcotic agent; Z79.82 Long term (current) use of aspirin; Z79.1 Long term (current) use of non-steroidal anti-inflammatories (NSAID); Z79.899 Other long term (current) drug therapy; F41.9 Anxiety disorder, unspecified; F60.89 Other specific personality disorders; Z76.5 Malingerer [conscious simulation]; Z86.73 Personal history of transient ischemic attack (TIA), and cerebral infarction without residual deficits; E78.5 Hyperlipidemia, unspecified; K21.9 Gastro-esophageal reflux disease without esophagitis; K59.00 Constipation, unspecified; M19.90 Unspecified osteoarthritis, unspecified site; M54.50 Low back pain, unspecified; K64.8 Other hemorrhoids; D50.9 Iron deficiency anemia, unspecified; J44.9 Chronic obstructive pulmonary disease, unspecified; Z98.41 Cataract extraction status, right eye; Z98.42 Cataract extraction status, left eye